=== PATIENT | female | born 1955 | race Caucasian/White ===

== ENCOUNTER 2019-12-26 14:13 | Outpatient (REF) | payer MEDICARE, SELFPAY ==
--- NOTE | 2019-12-26 14:21 | MM_ITS ---
EXAMINATION: BONE DENSITOMETRY CLINICAL INDICATION: Osteopenia lumbar spine. COMPARISON: Previous BD dated 11/04/2017 and baseline BD dated 01/06/2005. TECHNIQUE: Using a [employer] DXA System (software version: 13.1) manufactured by [employer], dual-energy x-ray absorptiometry was performed of the lumbar spine and left hip. The images are of good technical quality. Summary results are attached. FINDINGS: AP SPINE L1-L4: Current: BMD 1.059 g/cm2, Z-score 0.3, T-score -1.0, normal, 3.0% increase from previous, 8.2% decrease from baseline (<5% change is not significant). Prior: BMD 1.028 g/cm2. Baseline: BMD 1.153 g/cm2. LEFT FEMUR, NECK: Current: BMD 0.985 g/cm2, Z-score 0.9, T-score -0.4, normal. Prior: BMD 1.046 g/cm2. Baseline: BMD 1.140 g/cm2. LEFT FEMUR, TOTAL: Current: BMD 0.987 g/cm2, Z-score 0.9, T-score -0.2, normal, 1.0% decrease from previous, 11.2% decrease from baseline (<5% change is not significant). Prior: BMD 0.997 g/cm2. Baseline: BMD 1.111 g/cm2. IDENTIFIED RISK FACTORS: Osteoporosis. Height loss. Low calcium intake. Menopause. HISTORY OF FRACTURE: None listed. MEDICATIONS: Calcium supplement and/or multivitamin. Vitamin D. MM/XR DEXA axial skeleton IMPRESSION: 1. DIAGNOSIS: Normal bone density based on the lowest T-score value of -1.0 in the lumbar spine applying World Health Organization criteria. 2. 10-YEAR FRACTURE RISK PREDICTION, FRAX: Major osteoporotic fracture (clinical spine, forearm, hip or shoulder) 7.3%. Hip fracture 0.4%. 3. Treatment Recommendations: NOF guidelines recommend consideration for treatment in postmenopausal women and men age 50 and older presenting with the following: -A hip or vertebral (clinical or morphometric) fracture. -T-score less than or equal to -2.5 at the femoral neck or spine after appropriate evaluation to exclude secondary causes. -Low bone mass at the hip or spine and a 10-year fracture probability by FRAX of greater than or equal to 3% for hip fracture or greater than or equal to 20% for major osteoporotic fracture based on the [place] adapted WHO algorithm. 4. Other Recommendations: All treatment decisions require clinical judgment and consideration of individual patient factors, including patient preferences, comorbidities, previous drug use, risk factors not captured in the FRAX model (e.g. frailty, falls, vitamin D deficiency, increased bone turnover, interval significant decline in bone density) and possible under or overestimation of fracture risk by FRAX. Additional medical evaluation for secondary cause of low bone mineral density may be appropriate. FUTURE SCAN RECOMMENDATION: People with diagnosed cases of osteoporosis or at high risk for fracture should have regular bone mineral density tests. For patients eligible for Medicare, routine testing is allowed once every 2 years. The testing frequency can be increased to one year for patients who have rapidly progressing disease, those who are receiving or discontinuing medical therapy to restore bone mass, or have additional risk factors.
--- NOTE | 2019-12-26 14:21 | MM_ITS ---
EXAMINATION: MM SCREENING DIGITAL BREAST TOMOSYNTHESIS, BILATERAL CLINICAL INFORMATION: Screening. Asymptomatic. Family history breast cancer in mother and aunt. The lifetime risk of breast cancer based on the Tyrer-Cuzick Model is 13%. COMPARISON: Mammography: 11/30/2018, 11/04/2017 TECHNIQUE: Digital breast tomosynthesis is performed in both the craniocaudal and mediolateral oblique views along with computer-aided detection (CAD). Synthesized 2D images are generated from the tomosynthesis. Additional exaggerated left CC view is provided. FINDINGS: There are scattered areas of fibroglandular density (ACR BI-RADS breast composition Category b). Breast tissue composition borders on predominantly fatty. There is no interval mass or architectural abnormality or abnormal calcifications. No significant changes. Low right axillary tail node again seen. No significant changes from prior exams. MM/MM tomosynthesis screening BI IMPRESSION: No significant changes from prior studies. ASSESSMENT: BI-RADS 2: Benign RECOMMENDATION: Routine annual mammography screening. This patient's information was entered into a reminder system with a target due date for their next mammogram.
== END 2019-12-26 14:14 | disposition home or self-care (01) ==
LOC: HO.MAMMO 14:13
PROVIDERS: PCP Nurse Practitioner Family; Visit Provider Nurse Practitioner Family
DX: Z13.820 Encounter for screening for osteoporosis (principal); M85.88 Other specified disorders of bone density and structure, other site; Z78.0 Asymptomatic menopausal state; Z79.899 Other long term (current) drug therapy; Z12.31 Encounter for screening mammogram for malignant neoplasm of breast; Z80.3 Family history of malignant neoplasm of breast
CPT/HCPCS: 77063; 77067; 77080

== ENCOUNTER 2020-01-26 12:13 | Outpatient (REF) | payer MEDICARE, SELFPAY | END 2020-01-26 12:14 | disposition home or self-care (01) | LOC: HO.LAB 12:13 | PROVIDERS: PCP Nurse Practitioner Family; Visit Provider Internal Medicine | DX: Z20.828 Contact with and (suspected) exposure to other viral communicable diseases (principal) | CPT/HCPCS: C9803; U0003 ==

== ENCOUNTER 2020-01-30 15:40 | Emergency (ER) | payer MEDICARE, SELFPAY ==
[2020-01-30 16:03] VITALS: BP 121/98; PULSE 101; RESP 16; TEMP 37.1; O2SAT 98; BMI 26.6
--- NOTE | 2020-01-30 16:30 | ED.GENADULT ---
HPI - General Adult General Chief complaint: General Medical <Qasim Will NP - Last Filed: 01/30/20 18:14> Stated complaint: FLU LIKE <Qasim Will NP - Last Filed: 01/30/20 18:14> Time Seen by Provider: 01/30/20 15:53 <Qasim Will NP - Last Filed: 01/30/20 18:14> Source: patient <Qasim Will NP - Last Filed: 01/30/20 18:14> Mode of arrival: ambulatory <Qasim Will NP - Last Filed: 01/30/20 18:14> Limitations: no limitations <Qasim Will NP - Last Filed: 01/30/20 18:14> History of Present Illness HPI narrative: 64 yo female with past medical history of asthma here with dry cough, fatigue and intermittent PACHECO x 7 days. Pt tells me she was with a COVID + person 9 days ago. She was tested and informed today she was negative. No shortness of breath, chest pain, abdominal pain, vomiting, diarrhea. The patient does which is mild intermittent headaches which are not severe and resolve on their own. They are not associated with any vomiting, vision changes, photophobia or dizziness. No fevers, or chills. The patient has had to use her albuterol inhaler several times. <Qasim Will NP - Last Filed: 01/30/20 18:14> Onset (ago): day(s) <Qasim Will NP - Last Filed: 01/30/20 18:14> Radiation: non-radiation <Qasim Will NP - Last Filed: 01/30/20 18:14> Associated symptoms: cough, headaches and malaise <Qasim Will NP - Last Filed: 01/30/20 18:14> Treatments prior to arrival: none <Qasim Will NP - Last Filed: 01/30/20 18:14> Related Data Home medications: Home Medications Medication Instructions Recorded Confirmed omeprazole 40 mg capsule,delayed 40 mg PO DAILY 02/05/20 release Previous Rx's Medication Instructions Recorded albuterol sulfate 90 mcg/actuation 1 inh INHALATION QID PRN 30 Days 11/23/19 aerosol inhaler #18 g fluticasone 100 mcg-salmeterol 50 1 inh INHALATION BID 30 Days #60 ea 12/04/19 mcg/dose blistr powdr for inhalation ibuprofen 600 mg tablet 600 mg PO TID #21 tab 02/02/20 phentermine 30 mg capsule 30 mg PO DAILY 30 Days #30 cap 02/07/20 <Qasim Will NP - Last Filed: 01/30/20 18:14> Allergies/adverse reactions: Allergies Allergy/AdvReac Type Severity Reaction Status Date / Time prednisone [PREDNISONE] Allergy Severe FLUSHING/DIFFICULTY Verified 02/02/20 15:09 SWALLOWING, anaphalactic reaction codeine [CODEINE] Allergy Intermediate N/V Verified 02/02/20 15:09 <Qasim Will NP - Last Filed: 01/30/20 18:14> Review of Systems Review of Systems: Yes all other systems are reviewed and are negative <Qasim Will NP - Last Filed: 01/30/20 18:14> Constitutional: Constitutional: Reports no additional constitutional complaints, Denies body ache(s), Denies chills, Reports fatigue, Denies fever(s), Reports headache(s) and Denies weakness <DAR Davila Last Filed: 01/30/20 18:14> Eyes: Eyes: Reports no additional eye complaints and Denies change in vision <DAR Davila Last Filed: 01/30/20 18:14> ENT: Reports system reviewed and no additional complaints, except as documented, Denies dizziness, Reports headache(s), Denies nasal congestion, Denies nasal discharge and Denies neck pain <DAR Davila Last Filed: 01/30/20 18:14> Cardiovascular: Cardiovascular: Reports no additional cardiovascular complaints, Denies chest pain, Denies leg edema and Denies dyspnea <DAR Davila Last Filed: 01/30/20 18:14> Respiratory: Respiratory: Reports no additional respiratory complaints, Reports cough and Denies dyspnea <Qasim Will NP - Last Filed: 01/30/20 18:14> Gastrointestinal: Gastrointestinal: Reports no additional gastrointestinal complaints, Denies abdominal pain, Denies diarrhea, Denies nausea and Denies vomiting <Qasim Will NP - Last Filed: 01/30/20 18:14> Genitourinary: Genitourinary: Reports no additional female genitourinary complaints and Denies urinary incontinence <Qasim Will NP - Last Filed: 01/30/20 18:14> Musculoskeletal: Musculoskeletal: Reports no additional musculoskeletal complaints, Denies back pain, Denies arthralgias, Denies joint swelling, Denies neck pain, Denies numbness and Denies tingling <Qasim Will NP - Last Filed: 01/30/20 18:14> Integumentary/Breasts: Skin/Breast: Reports system reviewed and no additional complaints, except as docu and Denies rash <Qasim Will NP - Last Filed: 01/30/20 18:14> Neurologic: Reports system reviewed and no additional complaints, except as documented, Denies Abnormal speech present, Denies dizziness, Reports headache(s), Denies numbness, Denies tingling and Denies weakness <Qasim Will NP - Last Filed: 01/30/20 18:14> Endocrine: Endocrine: Reports fatigue <Qasim Will NP - Last Filed: 01/30/20 18:14> PMFSH Past Medical History Attestation statement: The following information was validated with the patient. <Qasim Will NP - Last Filed: 01/30/20 18:14> Source: old records reviewed and nursing notes reviewed <Qasim Will NP - Last Filed: 01/30/20 18:14> Medical History: Medical History Asthma <Qasim Will NP - Last Filed: 01/30/20 18:14> Physical Exam Vital Signs: Vital Signs: Last Vital Signs Temp 98.7 F 01/30/20 16:03 Pulse 101 H 01/30/20 16:03 Resp 16 01/30/20 16:03 BP 121/98 H 01/30/20 16:03 Pulse Ox 98 01/30/20 16:03 Body Mass Index 26.6 <Qasim Will NP - Last Filed: 01/30/20 18:14> Vital Signs: Last Vital Signs Temp 98.7 F 01/30/20 16:03 Pulse 101 H 01/30/20 16:03 Resp 16 01/30/20 16:03 BP 121/98 H 01/30/20 16:03 Pulse Ox 98 01/30/20 16:03 Body Mass Index 26.6 <Nuno Guerrero MD - Last Filed: 02/11/20 09:40> Const: General: cooperative, healthy appearing, comfortable and no acute distress <Qasim Will NP - Last Filed: 01/30/20 18:14> Orientation/consciousness: patient oriented x3 <Qasim Will NP - Last Filed: 01/30/20 18:14> Limitations: no limitations <Qasim Will NP - Last Filed: 01/30/20 18:14> HENMT: Head: Yes normal to inspection <Qasim Will NP - Last Filed: 01/30/20 18:14> Ears: hearing grossly normal bilaterally <Qasim Will NP - Last Filed: 01/30/20 18:14> General nose exam: Normal external nose present <Qasim Will NP - Last Filed: 01/30/20 18:14> Face and sinus: Yes normal facial exam <Qasim Will NP - Last Filed: 01/30/20 18:14> Mouth: Normal oral and palatal mucosa present <Qasim Will NP - Last Filed: 01/30/20 18:14> Throat: Yes posterior oropharynx normal <Qasim Will NP - Last Filed: 01/30/20 18:14> Eyes: General: appearance normal, both eyes and all related structures <Qasim Will NP - Last Filed: 01/30/20 18:14> Pupils: Equal, round and reactive pupils present <Qasim Will NP - Last Filed: 01/30/20 18:14> Neck: Neck: Yes normal visual inspection <Qasim Will NP - Last Filed: 01/30/20 18:14> Chest: Chest palpation & inspection: normal inspection of the chest <Qasim Will NP - Last Filed: 01/30/20 18:14> Resp: Effort & Inspection: normal respiratory effort <Qaism Will NP - Last Filed: 01/30/20 18:14> Auscultation: clear to auscultation bilaterally <Qasim Will EMERGENCY ROOM PHYSICIAN ASSISTANT - Last Filed: 01/30/20 18:14> Cardio: Rate: regular rate <Qasim Will EMERGENCY ROOM PHYSICIAN ASSISTANT - Last Filed: 01/30/20 18:14> Rhythm: regular rhythm <Qasim Will NP - Last Filed: 01/30/20 18:14> Peripheral pulses: Peripheral pulses 2+ throughout <Qasim Wlil EMERGENCY ROOM PHYSICIAN ASSISTANT - Last Filed: 01/30/20 18:14> GI: Inspection: Yes normal to inspection <Qasim Will EMERGENCY ROOM PHYSICIAN ASSISTANT - Last Filed: 01/30/20 18:14> Palpation (GI): Soft to palpation and nontender <Qasim Will EMERGENCY ROOM PHYSICIAN ASSISTANT - Last Filed: 01/30/20 18:14> Auscultation: normal bowel sounds <Qasim Will EMERGENCY ROOM PHYSICIAN ASSISTANT - Last Filed: 01/30/20 18:14> Back/Spine/Pelvis: Thoracic/Lumbar Spine: thoracic and lumbar spine normal to inspection <Qasim Will NP - Last Filed: 01/30/20 18:14> Skin: General skin exam: no rashes or lesions noted <Qasim Will NP - Last Filed: 01/30/20 18:14> Neuro: General: patient oriented x3, no focal motor deficits and normal sensation to monofilament <Qasim Will NP - Last Filed: 01/30/20 18:14> Cranial nerves: Yes CN's II-XII intact bilaterally, Yes Equal, round and reactive pupils present, Yes Bilaterally intact EOM present, Yes Nystagmus not present, Yes Normal facial strength present and Yes Midline tongue present <Qasim Will NP - Last Filed: 01/30/20 18:14> Cognition (Neuro): normal cognition <Qasim Will NP - Last Filed: 01/30/20 18:14> Speech: No Abnormal speech present <Qasim Will NP - Last Filed: 01/30/20 18:14> Gait exam (Neuro): Normal gait present <Qasim Will NP - Last Filed: 01/30/20 18:14> Motor exam (neuro): 5/5 motor strength present throughout <Qasim Will NP - Last Filed: 01/30/20 18:14> Extrem: General: Yes normal to inspection <Qasim Will NP - Last Filed: 01/30/20 18:14> Course Course Course Narrative: 64-year-old female here with fatigue, intermittent headaches, cough x 7 days, recent negative COVID test, persistent symptoms. Stable vital signs. Benign exam. Will check labs, chest x-ray, flu and COVID swab. 1814-labs, chest x-ray and COVID and flu testing all unremarkable. Discussed findings with the patient. Maybe viral syndrome. I did discuss with her that she should follow-up with her primary care doctor outpatient for additional evaluation and further diagnostic testing as indicated. Reviewed worrisome signs and symptoms and when to return to the emergency department. Comfortable with discharge home. <Qasim Will NP - Last Filed: 01/30/20 18:14> I have reviewed the chart <Nuno Guerrero MD - Last Filed: 02/11/20 09:40> Medical Decision Making MDM Narrative Medical decision making narrative: Pneumonia, viral syndrome, COVID-19 infection, electrolyte abnormality, anemia <Qasim Will NP - Last Filed: 01/30/20 18:14> Medical Records Medical records reviewed: Yes I reviewed the patient's medical records. <Qasim Will NP - Last Filed: 01/30/20 18:14> Lab Data Lab results reviewed: Yes I reviewed the patient's lab results. <Qasim Will NP - Last Filed: 01/30/20 18:14> Result diagrams: : 01/30/20 16:41 01/30/20 16:41 <Qasim Will, EMERGENCY ROOM PHYSICIAN ASSISTANT - Last Filed: 01/30/20 18:14> Labs: Lab Results 01/30/20 01/30/20 01/30/20 Range/Units 16:41 16:41 16:41 WBC 5.7 (4.8-10.8) X10*3/uL RBC 4.40 (4.20-5.50) X10*6/uL Hgb 13.8 (12.0-16.0) g/dl Hct 39.9 (37-47) % MCV 90.7 (80-98) fL MCH 31.4 (27.0-33.0) pg MCHC 34.6 (31.0-35.0) g/dl RDW 11.9 (11.0-16.0) % Plt Count 235 (160-400) X10*3/uL MPV 10.8 (9.4-12.3) fL Immature Gran % (Auto) 0.2 (0.0-0.4) % Neut % (Auto) 60.6 (45-73) % Lymph % (Auto) 30.9 (20-40) % [place] % (Auto) 5.8 (2-11) % Eos % (Auto) 2.1 (0-4) % Baso % (Auto) 0.4 (0-2) % Lymph # (Auto) 1.8 (1.2-4.9) X10*3/uL [place] # (Auto) 0.3 (0.1-1.2) X10*3/uL Eos # (Auto) 0.1 (0.0-0.4) X10*3/uL Baso # (Auto) 0.0 (0.0-0.2) X10*3/uL Abs Immat Gran (auto) 0.01 (0.00-0.03) X10*3/uL Absolute Neuts (auto) 3.4 (2.0-8.3) X10*3/uL Absolute Nucleated RBC 0.000 (0.0-0.012) X10*3/uL Nucleated RBC % (auto) 0.0 (0.0-0.2) /100WBC Sodium 139 (135-145) mmol/L Potassium 4.2 (3.3-5.1) mmol/l Chloride 105 (96-108) mmol/L Carbon Dioxide 26 (22-29) mmol/L Anion Gap 12 (12-20) BUN 13 (9-16) mg/dL Creatinine 1.00 (0.5-1.4) mg/dL Estim Creat Clear Calc 55.2 Estimated GFR 55 Random Glucose 106 (60-115) mg/dL Calcium 8.8 (8.4-10.2) mg/dL Magnesium 1.8 (1.6-2.6) mg/dL Total Bilirubin 0.5 (0.0-1.0) mg/dL Direct Bilirubin 0.2 (0.0-0.5) mg/dL AST 13 (5-31) U/L ALT 11 (0-31) U/L Alkaline Phosphatase 76 (39-117) U/L Total Protein 7.2 (6.5-8.0) g/dL Albumin 4.6 (3.5-5.0) g/dL Coronavirus (PCR) NEGATIVE (Negative) Influenza Type A (PCR) NEGATIVE (Negative) Influenza Type B (PCR) NEGATIVE (Negative) RSV RNA Qual (PCR) NEGATIVE (Negative) <Qasim Will, EMERGENCY ROOM PHYSICIAN ASSISTANT - Last Filed: 01/30/20 18:14> Lab Results 01/30/20 01/30/20 01/30/20 Range/Units 16:41 16:41 16:41 WBC 5.7 (4.8-10.8) X10*3/uL RBC 4.40 (4.20-5.50) X10*6/uL Hgb 13.8 (12.0-16.0) g/dl Hct 39.9 (37-47) % MCV 90.7 (80-98) fL MCH 31.4 (27.0-33.0) pg MCHC 34.6 (31.0-35.0) g/dl RDW 11.9 (11.0-16.0) % Plt Count 235 (160-400) X10*3/uL MPV 10.8 (9.4-12.3) fL Immature Gran % (Auto) 0.2 (0.0-0.4) % Neut % (Auto) 60.6 (45-73) % Lymph % (Auto) 30.9 (20-40) % [place] % (Auto) 5.8 (2-11) % Eos % (Auto) 2.1 (0-4) % Baso % (Auto) 0.4 (0-2) % Lymph # (Auto) 1.8 (1.2-4.9) X10*3/uL [place] # (Auto) 0.3 (0.1-1.2) X10*3/uL Eos # (Auto) 0.1 (0.0-0.4) X10*3/uL Baso # (Auto) 0.0 (0.0-0.2) X10*3/uL Abs Immat Gran (auto) 0.01 (0.00-0.03) X10*3/uL Absolute Neuts (auto) 3.4 (2.0-8.3) X10*3/uL Absolute Nucleated RBC 0.000 (0.0-0.012) X10*3/uL Nucleated RBC % (auto) 0.0 (0.0-0.2) /100WBC Sodium 139 (135-145) mmol/L Potassium 4.2 (3.3-5.1) mmol/l Chloride 105 (96-108) mmol/L Carbon Dioxide 26 (22-29) mmol/L Anion Gap 12 (12-20) BUN 13 (9-16) mg/dL Creatinine 1.00 (0.5-1.4) mg/dL Estim Creat Clear Calc 55.2 Estimated GFR 55 Random Glucose 106 (60-115) mg/dL Calcium 8.8 (8.4-10.2) mg/dL Magnesium 1.8 (1.6-2.6) mg/dL Total Bilirubin 0.5 (0.0-1.0) mg/dL Direct Bilirubin 0.2 (0.0-0.5) mg/dL AST 13 (5-31) U/L ALT 11 (0-31) U/L Alkaline Phosphatase 76 (39-117) U/L Total Protein 7.2 (6.5-8.0) g/dL Albumin 4.6 (3.5-5.0) g/dL Coronavirus (PCR) NEGATIVE (Negative) Influenza Type A (PCR) NEGATIVE (Negative) Influenza Type B (PCR) NEGATIVE (Negative) RSV RNA Qual (PCR) NEGATIVE (Negative) <Nuno Guerrero MD - Last Filed: 02/11/20 09:40> Imaging Data Chest x-ray: Attestation: I personally reviewed and interpreted this imaging study as follows: <Qasim Will NP - Last Filed: 01/30/20 18:14> Radiologist's impression: [address] [address] XRay Report Signed Patient: Juliana Curtis AMR#: [id number] : 4Acct:[id number] Age/Sex: 64 / FADM Date: 01/30/20 Loc: HO.ED Attending Dr: Ordering Physician: QASIM WILL NP Date of Service: 01/30/20 Procedure(s): XR chest 1V Accession Number(s): [id number] cc: QASIM WILL NP~ EXAMINATION: XR CHEST CLINICAL INFORMATION: Weakness COMPARISON: 04/15/2010 TECHNIQUE: Frontal view of the chest was obtained. FINDINGS: Calcified aortic arch. Lungs are clear. No focal consolidation or mass. No pleural effusion or pneumothorax. Normal heart size. XR/XR chest 1V IMPRESSION: No acute pulmonary disease. No significant change from prior study. <Qasim Will NP - Last Filed: 01/30/20 18:14> Discharge Plan Discharge Clinical Impression: Acute viral syndrome <Qasim Will NP - Last Filed: 01/30/20 18:14> Patient Disposition: Home, Self-Care <Qasim Will NP - Last Filed: 01/30/20 18:14> Instructions: Viral Syndrome (ED) <Qasim Will NP - Last Filed: 01/30/20 18:14> Additional Instructions: Your blood work, chest x-ray, COVID and flu testing were all unremarkable. This may be a virus however at this point I would recommend following up with your PCP for additional evaluation and diagnostic testing. Please return to the ED for any worsening symptoms <Qasim Will NP - Last Filed: 01/30/20 18:14> Prescriptions: No Action albuterol sulfate [ProAir HFA] 90 mcg/actuation HFA aerosol inhaler 1 inh inhalation QID PRN (Reason: shortness of breath or wheezing) 30 Days Qty: 18 RF: 4 fluticasone propion-salmeterol 100-50 mcg/dose blister with device 1 inh inhalation BID 30 Days Qty: 60 RF: 3 phentermine 30 mg capsule 30 mg PO DAILY 30 Days Qty: 30 RF: 1 ibuprofen 600 mg tablet 600 mg PO TID Qty: 21 RF: 0 <Qasim Will NP - Last Filed: 01/30/20 18:14> Referrals: Gwyn Camarena, [facility]- [Primary Care Provider] - 2 days <Qasim Will NP - Last Filed: 01/30/20 18:14> Interventions: ED Discharge Assessment Last Done: 01/30/20 18:34 <Qasim Will NP - Last Filed: 01/30/20 18:14> Discharge Date/Time: 01/30/20 18:34 <Qasim Will NP - Last Filed: 01/30/20 18:14>
[2020-01-30 16:49] LABS: MANUAL DIFF FLAG NO
[2020-01-30 16:52] LABS: Basophils Percent Auto 0.4 % (0-2); Eosinophils Absolute Auto 0.1 X10*3/uL (0.0-0.4); Eosinophils Percent Auto 2.1 % (0-4); Hematocrit 39.9 % (37-47); Hemoglobin 13.8 g/dl (12.0-16.0); Imm Gran Abs Auto 0.01 X10*3/uL (0.00-0.03); Imm Gran Pct Auto 0.2 % (0.0-0.4); Lymphocytes Absolute Auto 1.8 X10*3/uL (1.2-4.9); Lymphocytes Percent Auto 30.9 % (20-40); Mean Corpuscular HGB Conc 34.6 g/dl (31.0-35.0); Mean Corpuscular Hemoglobin 31.4 pg (27.0-33.0); Mean Corpuscular Volume 90.7 fL (80-98); Mean Platelet Volume 10.8 fL (9.4-12.3); Monocytes Absolute Auto 0.3 X10*3/uL (0.1-1.2); Monocytes Percent Auto 5.8 % (2-11); Neutrophils Absolute Auto 3.4 X10*3/uL (2.0-8.3); Neutrophils Percent Auto 60.6 % (45-73); Platelet Count 235 X10*3/uL (160-400); Red Cell Distribution Width 11.9 % (11.0-16.0); White Blood Count 5.7 X10*3/uL (4.8-10.8)
[2020-01-30 17:13] LABS: Alanine Aminotransferase 11 U/L (0-31); Albumin Level 4.6 g/dL (3.5-5.0); Alkaline Phosphatase 76 U/L (39-117); Anion Gap 12 (12-20); Aspartate Amino Transferase 13 U/L (5-31); Bilirubin Direct 0.2 mg/dL (0.0-0.5); Bilirubin Total 0.5 mg/dL (0.0-1.0); Blood Urea Nitrogen 13 mg/dL (9-16); Calcium 8.8 mg/dL (8.4-10.2); Carbon Dioxide 26 mmol/L (22-29); Chloride 105 mmol/L (96-108); Creatinine Clr Calc Pharmacy 55.2; Estimated Glomerular Filt Rate 55; Glucose Random 106 mg/dL (60-115); Magnesium 1.8 mg/dL (1.6-2.6); Potassium 4.2 mmol/l (3.3-5.1); Sodium 139 mmol/L (135-145); Total Protein 7.2 g/dL (6.5-8.0)
[2020-01-30 17:31] LABS: Influenza A PCR NEGATIVE (Negative); Influenza B PCR NEGATIVE (Negative); Resp Syncy Virus RNA Qual PCR NEGATIVE (Negative); SARS COV2 PCR INHOUSE NEGATIVE (Negative)
== END 2020-01-30 18:34 | disposition home or self-care (01) ==
PROVIDERS: Nurse Practitioner Family; Emergency Provider Emergency Medicine; PCP Nurse Practitioner Family
DX: B34.9 Viral infection, unspecified (principal); R05 Cough; R51.9 Headache, unspecified; Z20.828 Contact with and (suspected) exposure to other viral communicable diseases; Z79.899 Other long term (current) drug therapy
CPT/HCPCS: 0241U; 36415; 71045; 80048; 80076; 83735; 85025; 99283; 99284

== ENCOUNTER 2020-06-27 13:43 | Outpatient (REF) | payer MEDICARE, SELFPAY ==
[2020-06-27 16:33] LABS: INTERNATIONAL NORM RATIO 2.5 (0.9-1.1); Prothrombin Time 30.5 SEC (10.8-13.0)
== END 2020-06-27 13:44 | disposition home or self-care (01) ==
LOC: HO.HMGCLDS 13:43
PROVIDERS: PCP Nurse Practitioner Family; Visit Provider Orthopaedic Surgery
DX: Z51.81 Encounter for therapeutic drug level monitoring (principal); Z79.01 Long term (current) use of anticoagulants
CPT/HCPCS: 36415; 85610

== ENCOUNTER 2020-07-10 13:50 | Outpatient (REF) | payer MEDICARE, SELFPAY | END 2020-07-10 13:51 | disposition home or self-care (01) | LOC: HO.LNP 13:50 | PROVIDERS: Visit Provider Internal Medicine | DX: N30.90 Cystitis, unspecified without hematuria (principal) | CPT/HCPCS: 87086 ==

== ENCOUNTER 2020-09-05 09:00 | Outpatient (RCR) | payer MEDICARE, SELFPAY | END 2021-06-19 11:54 | disposition home or self-care (01) | LOC: HO.PTCHIC 09:00 | PROVIDERS: PCP Nurse Practitioner Family; Visit Provider Orthopaedic Surgery | DX: Z96.652 Presence of left artificial knee joint (principal); Z98.890 Other specified postprocedural states | CPT/HCPCS: 97110; 97140; 97161; 97530 ==

== ENCOUNTER 2020-11-15 07:00 | Outpatient (REF) | payer MEDICARE, SELFPAY ==
[2020-11-15 12:09] LABS: Appearance Urine CLEAR; Color Urine YELLOW; Glucose Urine UA NEG (NEG); Leukocyte Esterase Urine 1+ (NEG); Nitrite Urine NEG (NEG); PH 6.5 (5.0-8.0); UACC Culture Trigger YES; Urine Blood NEG (NEG); Urine Ketones NEG (NEG); Urine Protein NEG (NEG-TRACE)
[2020-11-15 12:23] LABS: Bacteria Urine TRACE /LPF; RBC Urine 0 /HPF (0); Squamous Epithelial Cell Urine 2+ /LPF
[2020-11-15 13:12] LABS: Alanine Aminotransferase 13 U/L (0-31); Albumin Level 4.1 g/dL (3.5-5.0); Alkaline Phosphatase 79 U/L (39-117); Anion Gap 10 (12-20); Aspartate Amino Transferase 15 U/L (5-31); Bilirubin Total 0.6 mg/dL (0.0-1.0); Blood Urea Nitrogen 16 mg/dL (9-16); Calcium 9.2 mg/dL (8.4-10.2); Carbon Dioxide 27 mmol/L (22-29); Chloride 107 mmol/L (96-108); Cholesterol 198 mg/dL; Estimated Glomerular Filt Rate > 60; Glucose Fasting 96 mg/dL (60-99); HDL Cholesterol 67 mg/dL; LDL Cholesterol Calculated 121 mg/dl; Potassium 4.3 mmol/L (3.3-5.1); Sodium 140 mmol/L (135-145); TSH reflex Free T4 2.53 uIU/mL (0.32-4.0); Total Protein 6.5 g/dL (6.5-8.0); Triglycerides 52 mg/dL
== END 2020-11-15 07:01 | disposition home or self-care (01) ==
LOC: HO.HMGCLDS 07:00
PROVIDERS: PCP Nurse Practitioner Family; Visit Provider Nurse Practitioner Family
DX: Z00.00 Encounter for general adult medical examination without abnormal findings (principal)
CPT/HCPCS: 36415; 80053; 80061; 81001; 84443; 87086

== ENCOUNTER 2020-11-19 09:44 | Outpatient (REF) | payer MEDICARE, SELFPAY ==
--- NOTE | ~2020-11-19 | XR_ITS ---
EXAMINATION: XR FOOT, RIGHT XR FOOT, LEFT CLINICAL INFORMATION: Pain in bilateral feet. COMPARISON: None TECHNIQUE: Three views of each foot. FINDINGS: RIGHT FOOT: There is no visible acute fracture, dislocation or subluxation. The ankle mortise and subtalar joints are normal. The visualized tarsometatarsal and metatarsophalangeal joints are normal. The soft tissues are normal. LEFT FOOT: There is no visible acute fracture, dislocation or subluxation seen. The soft tissues are normal. The ankle mortise and subtalar joints are normal. XR/XR foot RT min 3V IMPRESSION: Unremarkable bilateral foot exam.
--- NOTE | ~2020-11-19 | XR_ITS ---
EXAMINATION: XR FOOT, RIGHT XR FOOT, LEFT CLINICAL INFORMATION: Pain in bilateral feet. COMPARISON: None TECHNIQUE: Three views of each foot. FINDINGS: RIGHT FOOT: There is no visible acute fracture, dislocation or subluxation. The ankle mortise and subtalar joints are normal. The visualized tarsometatarsal and metatarsophalangeal joints are normal. The soft tissues are normal. LEFT FOOT: There is no visible acute fracture, dislocation or subluxation seen. The soft tissues are normal. The ankle mortise and subtalar joints are normal. XR/XR foot LT min 3V IMPRESSION: Unremarkable bilateral foot exam.
== END 2020-11-19 09:45 | disposition home or self-care (01) ==
LOC: HO.HMGCX 09:44
PROVIDERS: PCP Nurse Practitioner Family; Visit Provider Nurse Practitioner Family
DX: M79.671 Pain in right foot (principal); M79.672 Pain in left foot
CPT/HCPCS: 73630

== ENCOUNTER 2021-01-01 13:03 | Outpatient (REF) | payer MEDICARE, SELFPAY ==
--- NOTE | ~2021-01-01 | MM_ITS ---
EXAMINATION: MM SCREENING DIGITAL BREAST TOMOSYNTHESIS, BILATERAL CLINICAL INFORMATION: Screening. Asymptomatic. The lifetime risk of breast cancer based on the Tyrer-Cuzick Model is 7%. COMPARISON: Mammography: 12/26/2019, 11/30/2018, 11/04/2017 TECHNIQUE: Digital breast tomosynthesis is performed in both the craniocaudal and mediolateral oblique views along with computer-aided detection (CAD). Synthesized 2D images are generated from the tomosynthesis. FINDINGS: There are scattered areas of fibroglandular density (ACR BI-RADS breast composition Category b). Breast tissue composition borders on predominantly fatty. Background stromal and fibroglandular densities are stable. There is no interval mass or architectural abnormality or abnormal calcifications. The axilla and skin contours are unremarkable. No significant changes. MM/MM tomosynthesis screening BI IMPRESSION: No mammographic evidence of malignancy. ASSESSMENT: BI-RADS 1: Negative RECOMMENDATION: Routine annual mammography screening. This patient's information was entered into a reminder system with a target due date for their next mammogram.
== END 2021-01-01 13:04 | disposition home or self-care (01) ==
LOC: HO.MAMMO 13:03
PROVIDERS: Visit Provider Nurse Practitioner Family
DX: Z12.31 Encounter for screening mammogram for malignant neoplasm of breast (principal)
CPT/HCPCS: 77063; 77067

== ENCOUNTER 2021-01-20 09:02 | Outpatient (REF) | payer MEDICARE, SELFPAY ==
--- NOTE | ~2021-01-20 | XR_ITS ---
EXAMINATION: XR LUMBOSACRAL SPINE CLINICAL INFORMATION: Back pain COMPARISON: Chest radiograph 01/30/2020, CT chest 06/21/2014. TECHNIQUE: Three views of the lumbosacral spine. FINDINGS: There is normal lumbar segmentation with 5 nonrib-bearing lumbar vertebrae with normal lumbar lordosis. There is no destructive process or spondylolisthesis. There is accentuated superior endplate concavity with mild depression at L1 representing new finding from remote CT chest 2014. There is no lumbar disc narrowing or endplate sclerosis or erosive change. The SI joints and visualized sacrum are unremarkable. There is coarse inhomogeneous calcification overlying central pelvis just right of midline measuring 2.7 x 3.2 cm likely related to calcified fibroid. There are scattered calcified phleboliths in the left and right pelvis. No visible renal calculi. XR/XR lumbar spine 2-3V IMPRESSION: 1. Mild superior plate compression L1, new from remote CT 06/21/2014. 2. Probable calcified uterine fibroid 2.7 x 3.3 cm.
== END 2021-01-20 09:03 | disposition home or self-care (01) ==
LOC: HO.HMGCX 09:02
PROVIDERS: PCP Nurse Practitioner Family; Visit Provider Physician Assistant Medical
DX: M54.9 Dorsalgia, unspecified (principal)
CPT/HCPCS: 72100

== ENCOUNTER 2021-02-12 09:06 | Outpatient (REF) | payer MEDICARE, SELFPAY | END 2021-02-12 09:07 | disposition home or self-care (01) | LOC: HO.HMGCLDS 09:06 | PROVIDERS: Visit Provider Internal Medicine | DX: Z20.822 Contact with and (suspected) exposure to COVID-19 (principal) | CPT/HCPCS: C9803; U0003; U0005 ==

== ENCOUNTER 2021-07-29 15:00 | Outpatient (RCR) | payer MEDICARE, SELFPAY | END 2021-11-14 14:17 | disposition home or self-care (01) | LOC: HO.PTCHIC 15:00 | PROVIDERS: PCP Nurse Practitioner Family; Visit Provider Orthopaedic Surgery | DX: S32.000D Wedge compression fracture of unspecified lumbar vertebra, subsequent encounter for fracture with routine healing (principal); Z91.81 History of falling | CPT/HCPCS: 97014; 97110; 97140; 97162 ==

== ENCOUNTER 2021-07-31 11:33 | Outpatient (REF) | payer MEDICARE, SELFPAY ==
[2021-07-31 14:00] LABS: Appearance Urine HAZY; Color Urine YELLOW; Glucose Urine UA NEG (NEG); Leukocyte Esterase Urine 2+ (NEG); Nitrite Urine NEG (NEG); PH 6.5 (5.0-8.0); UACC Culture Trigger YES; Urine Blood TRACE (NEG); Urine Ketones NEG (NEG); Urine Protein NEG (NEG-TRACE)
== END 2021-07-31 11:34 | disposition home or self-care (01) ==
LOC: HO.HMGCLDS 11:33
PROVIDERS: Visit Provider Nurse Practitioner Family
DX: N30.90 Cystitis, unspecified without hematuria (principal)
CPT/HCPCS: 81001; 81003; 87086; 87088; 87186

== ENCOUNTER 2022-01-22 08:53 | Outpatient (REF) | payer MEDICARE, SELFPAY ==
--- NOTE | ~2022-01-22 | MM_ITS ---
EXAMINATION: BONE DENSITOMETRY CLINICAL INDICATION: Asymptomatic menopausal state. COMPARISON: Previous BD dated 12/26/2019 and baseline BD dated 01/06/2005. Radiographs lumbar spine 01/20/2021. TECHNIQUE: Using a [employer] DXA System (software version: 13.1) manufactured by [employer], dual-energy x-ray absorptiometry was performed of the lumbar spine and left hip. The images are of good technical quality. Summary results are attached. FINDINGS: AP SPINE L1-L4: Current: BMD 1.027 g/cm2, Z-score 0.1, T-score -1.3, osteopenia, 3.0% decrease from previous, 10.9% decrease from baseline (<5% change is not significant). Prior: BMD 1.059 g/cm2. Baseline: BMD 1.153 g/cm2. LEFT FEMUR, NECK: Current: BMD 0.896 g/cm2, Z-score 0.5, T-score -1.0, normal. Prior: BMD 0.985 g/cm2. Baseline: BMD 1.140 g/cm2. LEFT FEMUR, TOTAL: Current: BMD 0.892 g/cm2, Z-score 0.3, T-score -0.9, normal, 9.6% decrease from previous, 19.7% decrease from baseline (<5% change is not significant). Prior: BMD 0.987 g/cm2. Baseline: BMD 1.111 g/cm2. IDENTIFIED RISK FACTORS: Height loss, history of fracture (adult), low calcium intake, osteoporosis, menopause. HISTORY OF FRACTURE: Mild compression superior endplate L1. MEDICATIONS: Calcium. MM/XR DEXA axial skeleton IMPRESSION: 1. DIAGNOSIS: Osteopenia based on the lowest T-score value of -1.3 in the lumbar spine applying World Health Organization criteria. 2. 10-YEAR FRACTURE RISK PREDICTION, FRAX: Major osteoporotic fracture (clinical spine, forearm, hip or shoulder) 14.1%. Hip fracture 1.3%. 3. Treatment Recommendations: NOF guidelines recommend consideration for treatment in postmenopausal women and men age 50 and older presenting with the following: -A hip or vertebral (clinical or morphometric) fracture. -T-score less than or equal to -2.5 at the femoral neck or spine after appropriate evaluation to exclude secondary causes. -Low bone mass at the hip or spine and a 10-year fracture probability by FRAX of greater than or equal to 3% for hip fracture or greater than or equal to 20% for major osteoporotic fracture based on the [place] adapted WHO algorithm. 4. Other Recommendations: All treatment decisions require clinical judgment and consideration of individual patient factors, including patient preferences, comorbidities, previous drug use, risk factors not captured in the FRAX model (e.g. frailty, falls, vitamin D deficiency, increased bone turnover, interval significant decline in bone density) and possible under or overestimation of fracture risk by FRAX. Additional medical evaluation for secondary cause of low bone mineral density may be appropriate. FUTURE SCAN RECOMMENDATION: People with diagnosed cases of osteoporosis or at high risk for fracture should have regular bone mineral density tests. For patients eligible for Medicare, routine testing is allowed once every 2 years. The testing frequency can be increased to one year for patients who have rapidly progressing disease, those who are receiving or discontinuing medical therapy to restore bone mass, or have additional risk factors.
--- NOTE | ~2022-01-22 | MM_ITS ---
EXAMINATION: MM SCREENING DIGITAL BREAST TOMOSYNTHESIS, BILATERAL CLINICAL INFORMATION: Screening. Asymptomatic. The lifetime risk of breast cancer based on the Tyrer-Cuzick Model is 6.6%. COMPARISON: Mammography: January 01, 2021 and studies dating back to December 12, 2014 TECHNIQUE: Digital breast tomosynthesis is performed in both the craniocaudal and mediolateral oblique views along with computer-aided detection (CAD). Synthesized 2D images are generated from the tomosynthesis. FINDINGS: There are scattered areas of fibroglandular density (ACR BI-RADS breast composition Category b). There are no significant masses, abnormal calcifications, or other abnormalities. MM/MM tomosynthesis screening BI IMPRESSION: No significant changes from prior exam. ASSESSMENT: BI-RADS 1: Negative RECOMMENDATION: Routine annual mammography screening. This patient's information was entered into a reminder system with a target due date for their next mammogram.
== END 2022-01-22 08:54 | disposition home or self-care (01) ==
LOC: HO.MAMMO 08:53
PROVIDERS: PCP Nurse Practitioner Family; Visit Provider Nurse Practitioner Family
DX: Z12.31 Encounter for screening mammogram for malignant neoplasm of breast (principal); Z13.820 Encounter for screening for osteoporosis; Z78.0 Asymptomatic menopausal state
CPT/HCPCS: 77063; 77067; 77080

== ENCOUNTER 2022-03-05 11:59 | Outpatient (REF) | payer MEDICARE, SELFPAY ==
[2022-03-05 12:57] LABS: Influenza A PCR NEGATIVE (Negative); Influenza B PCR NEGATIVE (Negative); Resp Syncy Virus RNA Qual PCR NEGATIVE (Negative); SARS COV2 PCR INHOUSE NEGATIVE (Negative)
== END 2022-03-05 12:00 | disposition home or self-care (01) ==
LOC: HO.LNP 11:59
PROVIDERS: Visit Provider Internal Medicine
DX: R09.89 Other specified symptoms and signs involving the circulatory and respiratory systems (principal); Z20.822 Contact with and (suspected) exposure to COVID-19
CPT/HCPCS: 0241U

== ENCOUNTER 2022-05-19 07:57 | Outpatient (REF) | payer MEDICARE, SELFPAY ==
[2022-05-19 11:30] LABS: MANUAL DIFF FLAG NO
[2022-05-19 11:51] LABS: Appearance Urine Cloudy; Color Urine Yellow; Glucose Urine UA Negative (Negative); Leukocyte Esterase Urine Large (3+) (Negative); Nitrite Urine Negative (Negative); Specific Gravity - Urine 1.025 (1.005-1.025); UMIC TRIGGER UACC YES; Urine Blood Negative (Negative); Urine Ketones Negative (Negative); Urine Protein Negative (Neg-Trace)
[2022-05-19 11:53] LABS: Bacteria Urine None Seen (None Seen); Hyaline Casts Urine 0-2 /LPF (0-2); RBC Urine 0-2 /HPF (0-2); UACC Culture Trigger YES; WBC Urine 21-50 /HPF (0-5)
[2022-05-19 12:00] LABS: Basophils Percent Auto 0.8 % (0-2); Eosinophils Absolute Auto 0.1 X10*3/uL (0.0-0.4); Eosinophils Percent Auto 2.8 % (0-4); Hematocrit 40.8 % (37.0-47.0); Hemoglobin 13.8 g/dl (12.0-16.0); Imm Gran Abs Auto 0.01 X10*3/uL (0.00-0.03); Imm Gran Pct Auto 0.2 % (0.0-0.4); Lymphocytes Percent Auto 39.8 % (20-40); Mean Corpuscular HGB Conc 33.8 g/dl (31.0-35.0); Mean Corpuscular Hemoglobin 31.4 pg (27.0-33.0); Mean Corpuscular Volume 92.7 fL (80.0-98.0); Mean Platelet Volume 12.2 fL (9.4-12.3); Monocytes Absolute Auto 0.3 X10*3/uL (0.1-1.2); Monocytes Percent Auto 6.7 % (2-11); Neutrophils Absolute Auto 2.5 x10*3/uL (2.0-8.3); Neutrophils Percent Auto 49.7 % (45-73); Platelet Count 200 X10*3/uL (160-400); Red Cell Distribution Width 12.6 % (11.0-16.0); Retic HGB Equivalent 36.9 pg (30.0-35.0); Reticulocyte Percent 1.2 % (0.5-1.8); Reticulocytes Absolute 0.053 X10*6/uL (0.026-0.095); White Blood Count 5.1 X10*3/uL (4.8-10.8)
[2022-05-19 12:28] LABS: Alanine Aminotransferase 15 U/L (0-31); Albumin Level 4.2 g/dL (3.5-5.0); Alkaline Phosphatase 72 U/L (39-117); Anion Gap 10 (12-20); Aspartate Amino Transferase 18 U/L (5-31); Bilirubin Total 0.6 mg/dL (0.0-1.0); Blood Urea Nitrogen 18 mg/dL (9-16); Calcium 9.3 mg/dL (8.4-10.2); Carbon Dioxide 28 mmol/L (22-29); Chloride 105 mmol/L (96-108); Cholesterol 216 mg/dL; Estimated Glomerular Filt Rate > 60; Glucose Fasting 98 mg/dL (60-99); HDL Cholesterol 65 mg/dL; Iron 102 mcg/dL (30-160); LDL Cholesterol Calculated 140 mg/dl; Percent Iron Saturation 41 % (15-50); Potassium 4.1 mmol/L (3.3-5.1); Sodium 139 mmol/L (135-145); Total Iron Binding Capacity 249 mcg/dL (228-428); Total Protein 6.5 g/dL (6.5-8.0); Triglycerides 59 mg/dL; Unsaturated Iron Binding 147 ug/dL
[2022-05-19 12:50] LABS: Ferritin 56 ng/mL (10-250); Folate 17.4 ng/mL (> or = 4.0); Vitamin B12 411 pg/mL (200-900)
[2022-05-19 13:14] LABS: TSH reflex Free T4 2.74 uIU/mL (0.32-4.0)
[2022-05-22 03:15] LABS: A. Phagocytphilium DNA,RT-PCR NOT DETECTED (NOT DETECTED); Babesia Microti DNA, RT-PCR NOT DETECTED (NOT DETECTED); Borrelia Miyamotoi,DNA RT-PCR NOT DETECTED (NOT DETECTED); E.Chaffeensis DNA RT-PCR NOT DETECTED (NOT DETECTED); Lyme(Borrelia ssp)DNA RT-PCR NOT DETECTED (NOT DETECTED)
[2022-05-27 11:29] LABS: ANA Pattern 2 Nuclear, Homogeneous; ANA Titer 2 1:40 titer; Anti Nuclear Antibody Screen POSITIVE (NEGATIVE)
== END 2022-05-19 07:58 | disposition home or self-care (01) ==
LOC: HO.HMGCLDS 07:57
PROVIDERS: PCP Nurse Practitioner Family; Visit Provider Nurse Practitioner Family
DX: R53.83 Other fatigue (principal); E78.5 Hyperlipidemia, unspecified; E55.9 Vitamin D deficiency, unspecified
CPT/HCPCS: 36415; 80053; 80061; 81001; 82306; 82607; 82728; 82746; 83540; 84443; 85025; 85045; 86038; 86039; 87086; 87088; 87186; 87798; 87801

== ENCOUNTER 2022-08-31 10:07 | Outpatient (AMB) | payer MEDICARE, SELFPAY ==
[2022-08-31 10:13] VITALS: BP 126/72; PULSE 91; TEMP 36.3; O2SAT 99; BMI 27.0
--- NOTE | 2022-08-31 10:13 | A.OFFVIS_ITS ---
Intake Vital Signs 08/31/22 10:13 Height 5 ft 5 in Weight 162 lb 0.636 oz BMI 27.0 BP 126/72 Blood Pressure Location Rt brachial Position Sitting Pulse 91 Pulse Source Pulse Oximeter Temp 97.3 F Temp Source Skin Pulse Oximetry (%) 99 Intake Visit Reasons: Fatigue/abnormal lab Intake Note: * New pt presents today for abnormal lab consult. * C/o fatigue, pain in multiple areas * States I have pain everywhere. [employer]ician Required: No Accompanied by: Self / Same As Patient Allergies prednisone [PREDNISONE] Allergy (Severe, Verified 08/31/22 10:22) FLUSHING/DIFFICULTY SWALLOWING, anaphalactic reaction codeine [CODEINE] Allergy (Intermediate, Verified 08/31/22 10:22) N/V Medication List - Last Reconciled 08/31/22 by Zaheer oSlis MD albuterol sulfate 90 mcg/actuation (ProAir HFA) 1 inh inhalation QID PRN 30 days biotin 2,500 mcg PO DAILY calcium carbonate-vitamin D3 600 mg-10 mcg (400 unit) (Calcium with Vitamin D) 1 tab PO BID 90 days cyclobenzaprine 10 mg PO BEDTIME gabapentin 300 mg PO BEDTIME lidocaine 4% (AsperFlex (lidocaine)) 1 patch topical DAILY PRN multivitamin (Daily Multi-Vitamin tablet) 1 tab PO DAILY omeprazole 40 mg PO DAILY phentermine 30 mg PO DAILY 30 days HPI HPI Comments History of Present Illness Details The patient presents for evaluation of multiple areas of pain and history of positive TAI. Apparently the TAI has been positive for a number of years. She did see a apprentice jockey a number of years ago but no signs of inflammatory disease were detected. She gets low back pain. This had been going on for number of years after a fall. The fall resulted in L1 compression fracture. That was treated conservatively and she gets low back pain. However in the last 8 or 9 months she has been getting some right leg pain. This is in the lateral hip and radiates to the thigh. It seems to be worse with walking. It has limited her ability to walk around. She also gets pain in the 1st MTP joints, this has been a chronic problem. She has been to Podiatry a few times but has not found any benefit from their treatment. She did injure her neck when she was a 10-year-old and she gets chronic neck pain. This is from osteoarthritis. In the last 6 months she has been having some right medial elbow pain. This was after doing some sanding on her kitchen cabinets. It gets worse when she does more of that activity. She does have a left knee replacement that worked out fairly well. She also had left rotator cuff surgery that did fairly well for her as well. She had a left carpal tunnel release done in the past. [facility] Medical History Asthma COPD (chronic obstructive pulmonary disease) Osteopenia Surgical History H/O colonoscopy History of arthroscopy of both knees History of hysteroscopy S/P shoulder surgery Family History Father No problems noted. Mother Leukemia Breast cancer Social History (Updated 08/31/22 @ 10:26 by PAULA Alcantar) Household Members: Spouse Housing: [facility] Alcohol intake: current Alcohol intake frequency: a few times a week Patient Tobacco Use Status: Former Tobacco user Years Smoked: 40 years e-Cigarette/Vaping Use: Never Used Second Hand Smoke Exposure: No service: No Current occupational status: employed Current occupation: [employer] Current occupational exposures/hazards: No Cognitive needs: No Hearing needs: No Vision needs: No Review of Systems Const Details: Tired and sleepy during the day. She does wake up 3 times at night sometimes to urinate. Negative for appetite change, weight change, fever, chills, malaise the Eyes Details: Occasional headaches. Itchy eyes due to allergy. Negative for vision change, dry eyes and dizziness ENT Details: Some oral dryness at times. Negative for hearing change, tinnitus, oral ulcer, nose bleeds Card Details: Negative chest pain, edema and syncope Resp Details: History of COPD, symptoms of dyspnea somewhat better since stopping smoking. Negative for the cough and wheezing GI Details: Occasional heartburn. Negative nausea, abdominal pain, bowel changes, diarrhea, constipation and bloody stool. Details: Negative for dysuria, hematuria, nocturia, decreased force/flow and genital discharge Skin/Breast Details: Some hair thinning. Negative for itching, rash, hives, Raynaud's symptoms, sun sensitivity, and skin cancer Neuro Details: Negative for epilepsy, palsy, stroke, changes in speech, tingling and weakness Psych Details: Negative for anxiety, depression and stress Endo Details: Negative for polyuria and polydypsia Espinoza/Lymph Details: Negative for excessive bruising or bleeding. Physical Exam Vital Signs: Last Vital Signs Temp 97.3 F 08/31/22 10:13 Pulse 91 08/31/22 10:13 BP 126/72 08/31/22 10:13 Pulse Ox 99 08/31/22 10:13 BMI result Body Mass Index 27.0 APPEARANCE: Patient in no acute distress EYES no redness, pupils equal and reactive to light, eyelids normal EARS: External ear normal, canal clear and tympanic membrane normal. NOSE/SINUS: Airflow through both nares, no nasal discharge, no bleeding THROAT: Oral mucosa moist, no ulcerations NECK: No thyromegaly or masses, no adenopathy, trachea midline. HEART: Regulrar rhythm, S1-S2 heard, no murmurs, rubs or gallops. LUNG: Clear to percussion and auscultation ABD: Normal bowel sounds, no organomegaly, masses or tenderness. EXTREMITIES: No edema, no calf tenderness, normal peripheral pulses. NEURO: Oriented and alert x3. No focal weakness. Reflexes symmetric. Gait normal. SKIN: No inflammatory or neoplastic lesions. Normal color and turgor JOINT EXAM:?? Cervical Spine: There is mild pain with lateral flexion at 10 degrees or rotation at 45 degrees. No tenderness. Thoracic Spine:.? No scoliosis.? No tenderness on palpation. Lumbar Spine:.? Alignment normal.? Mild pain with extremes of motion. No tenderness. Straight leg raising is negative. Chest Wall:.? No tenderness, swelling, increased warmth or erythema. Hands:.? Normal pain-free range of motion without tenderness, swelling, increased warmth or erythema. Able to make a full fist and has a good octave board assembler str ength. Wrists:.? Right: Slight pain with flexion extension at 75 degrees without tenderness or swelling. Left: Normal pain-free range of motion without tenderness, swelling, increased warmth or erythema. Elbows: Right: Normal pain-free range of motion. There is slight medial tenderness without tenderness or swelling over the joint space. Left: Normal pain-free range of motion without tenderness, swelling, increased warmth or erythema. Shoulders:.?? Left: There is an anterior scar from her rotator cuff surgery. Range of motion is intact but I think there is some abductor weakness. No tenderness, adenopathy or swelling. Right: Full range of motion without pain. No tenderness, weakness, swelling, increased warmth or erythema. Hips: Left: There seems to be some decrease in the range of motion. She has about 10 degrees of internal rotation and 15 degrees of external rotation. Abduction is limited to about 30 degrees. This [id number] is less than on the right. Right:? Full range of motion without pain. Hip bursa:.? No tenderness. Knees:.??Left: Range of motion seems intact with a well-healed anterior scar. No areas of swelling, tenderness or redness. Right: Slight patellofemoral crepitus but otherwise normal somel pain-free range of motion without tenderness, swelling, increased warmth or erythema.? There is no effusion. Ankles:.? Normal pain-free range of motion without tenderness, swelling, increased warmth or erythema. Feet:.? There is mild bony enlargement, slight hallux valgus deformity and tenderness at the 1st MTP bilaterally. There is no redness or soft tissue swelling. Otherwise the joints have normal pain-free range of motion without tenderness, swelling, increased warmth or erythema. Tender points:. Slight tenderness to digital palpation at the , trapezius, knees, greater trochanter area bilaterally. ? Results Reviewed Results Reviewed: Laboratory Tests 05/19/22 05/19/22 05/19/22 08:05 08:05 08:05 WBC 5.1 Hgb 13.8 Creatinine 0.83 % Saturation 41 TSH 2.74 TAI Titer 1:80 H Assessment & Plan Assessment & Plan (1) Fatigue: Code(s): R53.83 - Other fatigue (2) Medial epicondylitis, right elbow: Code(s): M77.01 - Medial epicondylitis, right elbow (3) Hip pain, right: Code(s): M25.551 - Pain in right hip (4) Osteoarthritis of lumbar spine: Code(s): M47.816 - Spondylosis without myelopathy or radiculopathy, lumbar region (5) Cervical osteoarthritis: Code(s): M47.812 - Spondylosis without myelopathy or radiculopathy, cervical region (6) Compression fracture of L1 lumbar vertebra: Code(s): S32.010A - Wedge compression fracture of first lumbar vertebra, initial encounter for closed fracture (7) TAI positive: Code(s): R76.8 - Other specified abnormal immunological findings in serum Plan The patient does have a positive TAI but no clear signs of an active rheumatic autoimmune disease. Most of her pains are explainable by osteoarthritis present in the cervical spine, lumbar spine, and the feet. She does have some medial epicondylar tenderness in the right elbow consistent with some medial epicondylitis. Likely this was due to overuse. I suggested we could pursue physical therapy or corticosteroid injection for that but she wants to hold off to see if it improves now that she is not doing the sanding. She has some limitation of motion in the right hip and I wonder if some of her pain in the leg that she is attributing to sciatica is not some OA in the hip. We will check a hip film to look at that. The x-ray from the lumbar spine from 2 years ago did not show hip OA at that time. I will check some other antibody studies to investigate the TAI. She had recent chemistries, iron level, TSH and CBC that were normal. I do not have a good explanation for her complaint of fatigue but it sounds like she does have nocturia x2 or 3 which may interfere enough with her sleep to make her sleepy or tired during the daytime. We will get back to her with the results of her studies as they come in in the next 2 weeks. Time taking the history, review of her record, her exam and discussion of the findings took 49 minutes Orders: Orders 2 XR hip BI w PEL1V Today M25.551 - Pain in right hip Anti DNA DS Antibody Today M25.551 - Pain in right hip, R76.8 - Other specified abnormal immunological findings in serum Anti Extractable Nuclear Ag Today M25.551 - Pain in right hip, R76.8 - Other specified abnormal immunological findings in serum Erythrocyte Sedimentation Rate Today M25.551 - Pain in right hip, R76.8 - Other specified abnormal immunological findings in serum C Reactive Protein Today M25.551 - Pain in right hip, R76.8 - Other specified abnormal immunological findings in serum Medications: New gabapentin 300 mg PO BEDTIME 30 caps 0RF Discontinued phentermine must administer 2 hours after breakfast Discontinued Reason: Patient Completed Course 30 mg PO DAILY 30 days 30 caps 2RF Coding Level of Care Code New Pt Level 4 (95293) Diagnoses Fatigue R53.83 Medial epicondylitis, right elbow M77.01 Hip pain, right M25.551 Osteoarthritis of lumbar spine M47.816 Cervical osteoarthritis M47.812 Compression fracture of L1 lumbar vertebra S32.010A TAI positive R76.8
== END 2022-08-31 11:19 | disposition home or self-care (01) ==
PROVIDERS: PCP Nurse Practitioner Family; Visit Provider Internal Medicine Rheumatology
DX: R53.83 Other fatigue (principal); M77.01 Medial epicondylitis, right elbow; M25.551 Pain in right hip; M47.816 Spondylosis without myelopathy or radiculopathy, lumbar region; M47.812 Spondylosis without myelopathy or radiculopathy, cervical region; S32.010A Wedge compression fracture of first lumbar vertebra, initial encounter for closed fracture; R76.8 Other specified abnormal immunological findings in serum
CPT/HCPCS: 99204

== ENCOUNTER → 2022-08-31 10:07 | Outpatient (BNVA) | payer MEDICARE, SELFPAY | PROVIDERS: PCP Nurse Practitioner Family; Visit Provider Internal Medicine Rheumatology | DX: R76.8 Other specified abnormal immunological findings in serum (principal); M77.01 Medial epicondylitis, right elbow; M47.816 Spondylosis without myelopathy or radiculopathy, lumbar region; M47.812 Spondylosis without myelopathy or radiculopathy, cervical region; S32.010A Wedge compression fracture of first lumbar vertebra, initial encounter for closed fracture; R53.83 Other fatigue; M25.551 Pain in right hip | CPT/HCPCS: 99202 ==

== ENCOUNTER 2022-08-31 11:41 | Outpatient (REF) | payer MEDICARE, SELFPAY ==
--- NOTE | ~2022-08-31 | XR_ITS ---
EXAMINATION: XR BILATERAL HIPS WITH AP PELVIS CLINICAL INFORMATION: Right hip pain COMPARISON: None available. TECHNIQUE: AP view of the pelvis and single views of each hip were obtained. 5 views FINDINGS: No fracture. Hip joint spaces are maintained. Alignment is anatomic. Sacroiliac joints and pubic symphysis are normal. No calcifications within the pelvis centrally most consistent fibroid uterus. XR/XR hip BI w PEL1V IMPRESSION: No acute fracture or dislocation of the pelvis or hips. Incidental fibroid uterus.
[2022-08-31 14:31] LABS: Erythrocyte Sedimentation Rate 5 MM/HR (0-20)
[2022-08-31 14:32] LABS: C Reactive Protein 0.13 mg/dL (< or = 0.50)
[2022-09-02 17:34] LABS: Anti DNA DS Antibody <1 IU/mL; SM/Ribonucleoprotein Ab <1.0 NEG AI (<1.0 NEG); Smith Protein <1.0 NEG AI (<1.0 NEG)
== END 2022-08-31 11:42 | disposition home or self-care (01) ==
LOC: HO.HMGCX 11:41
PROVIDERS: PCP Nurse Practitioner Family; Visit Provider Internal Medicine Rheumatology
DX: M25.551 Pain in right hip (principal); R53.83 Other fatigue; M77.01 Medial epicondylitis, right elbow; M47.816 Spondylosis without myelopathy or radiculopathy, lumbar region; M47.812 Spondylosis without myelopathy or radiculopathy, cervical region; S32.010D Wedge compression fracture of first lumbar vertebra, subsequent encounter for fracture with routine healing; R76.8 Other specified abnormal immunological findings in serum
CPT/HCPCS: 36415; 73521; 85652; 86140; 86225; 86235

== ENCOUNTER 2022-10-16 08:25 | Outpatient (AMB) | payer MEDICARE, SELFPAY ==
--- NOTE | 2022-10-16 08:30 | AM.OFFWIN_ITS ---
Intake Vital Signs 10/16/22 08:32 Weight 146 lb BP 120/80 Blood Pressure Location Rt brachial Position Sitting Pulse 96 Pulse Source Pulse Oximeter Temp 97.5 F Temp Source Temporal Artery Scan Pulse Oximetry (%) 98 Oxygen Delivery Method Room Air Intake Visit Reasons: EP, sinus congestion (masked) Intake Note: Patient here for sinus infection which has been present since last weekend. Patient Tobacco Use Status: Former Tobacco user Allergies prednisone [PREDNISONE] Allergy (Severe, Verified 10/16/22 09:00) FLUSHING/DIFFICULTY SWALLOWING, anaphalactic reaction codeine [CODEINE] Allergy (Intermediate, Verified 10/16/22 09:00) N/V Medication List - Last Reconciled 10/16/22 by Vipul Reynolds MD albuterol sulfate 90 mcg/actuation (ProAir HFA) 1 inh inhalation QID PRN 30 days biotin 2,500 mcg PO DAILY calcium carbonate-vitamin D3 600 mg-10 mcg (400 unit) (Calcium with Vitamin D) 1 tab PO BID 90 days cyclobenzaprine 10 mg PO BEDTIME gabapentin 300 mg PO BEDTIME lidocaine 4% (AsperFlex (lidocaine)) 1 patch topical DAILY PRN multivitamin (Daily Multi-Vitamin tablet) 1 tab PO DAILY omeprazole 40 mg PO DAILY Do you need a note to return to daycare/school/sports/work: No HPI EP, sinus congestion (masked) HPI Details Patient presents for a sick visit. Reporting symptoms of sinus congestion, sore throat and difficulty swallowing. Low-grade fever. No family member is sick. No recent travel. Patient reports symptoms of malaise and fatigue. [facility] Medical History Asthma COPD (chronic obstructive pulmonary disease) Osteopenia Surgical History H/O colonoscopy History of arthroscopy of both knees History of hysteroscopy S/P shoulder surgery Family History Father No problems noted. Mother Leukemia Breast cancer Social History (Updated 08/31/22 @ 10:26 by PAULA Alcantar) Household Members: Sp[facility] Alcohol intake: current Alcohol intake frequency: a few times a week Patient Tobacco Use Status: Former Tobacco user Years Smoked: 40 years e-Cigarette/Vaping Use: Never Used Second Hand Smoke Exposure: No service: No Current occupational status: employed Current occupation: real estate Current occupational exposures/hazards: No Cognitive needs: No Hearing needs: No Vision needs: No Physical Exam Vital Signs: Last Vital Signs Temp 97.5 F 10/16/22 08:32 Pulse 96 10/16/22 08:32 BP 120/80 10/16/22 08:32 Pulse Ox 98 10/16/22 08:32 Oxygen Delivery Method Room Air 10/16/22 08:32 Const General: cooperative and healthy appearing Nutritional Appearance: well nourished Orientation/consciousness: patient oriented x3 Limitations: no limitations HEENT Head: Yes normal to inspection Eyes General: appearance normal, both eyes and all related structures Neck Neck: Yes normal visual inspection Chest Chest palpation & inspection: normal palpation of entire chest wall Resp Effort & Inspection: normal respiratory effort Neuro General: patient oriented x3 Assessment & Plan Assessment & Plan (1) Upper respiratory tract infection: Code(s): J06.9 - Acute upper respiratory infection, unspecified Plan: Antibiotics ordered. Increase fluid intake. Tylenol for aches and pains. If symptoms worsen, follow-up here for a recheck. Coding Level of Care Code Est Pt Level 3 (27769) Diagnoses Upper respiratory tract infection J06.9
[2022-10-16 08:32] VITALS: BP 120/80; PULSE 96; TEMP 36.4; O2SAT 98
== END 2022-10-16 09:16 | disposition home or self-care (01) ==
PROVIDERS: PCP Nurse Practitioner Family; Visit Provider Internal Medicine
DX: J06.9 Acute upper respiratory infection, unspecified (principal)
CPT/HCPCS: 99213

== ENCOUNTER 2022-10-16 13:03 | Outpatient (REF) | payer MEDICARE, SELFPAY ==
[2022-10-16 13:44] LABS: Influenza A PCR NEGATIVE (Negative); Influenza B PCR NEGATIVE (Negative); Resp Syncy Virus RNA Qual PCR NEGATIVE (Negative); SARS COV2 PCR INHOUSE POSITIVE (Negative)
== END 2022-10-16 13:04 | disposition home or self-care (01) ==
LOC: HO.LNP 13:03
PROVIDERS: Visit Provider Internal Medicine
DX: Z20.822 Contact with and (suspected) exposure to COVID-19 (principal); R43.9 Unspecified disturbances of smell and taste
CPT/HCPCS: 0241U

== ENCOUNTER 2022-11-16 08:40 | Outpatient (AMB) | payer MEDICARE, SELFPAY ==
--- NOTE | 2022-11-16 08:56 | MHC.PC.OV ---
Vital Signs 11/16/22 08:57 Height 5 ft 5 in Weight 163 lb BMI 27.1 BP 120/60 Blood Pressure Location Rt brachial Position Sitting Pulse 92 Pulse Source Pulse Oximeter Pulse Oximetry (%) 97 Oxygen Delivery Method Room Air Intake Visit Reasons: 6m follow up COPD Allergies prednisone [PREDNISONE] Allergy (Severe, Verified 11/16/22 08:58) FLUSHING/DIFFICULTY SWALLOWING, anaphalactic reaction codeine [CODEINE] Allergy (Intermediate, Verified 11/16/22 08:58) N/V Medication List - Last Reconciled 11/16/22 by ESTHELA Roe-ALEJO albuterol sulfate 90 mcg/actuation (ProAir HFA) 1 inh inhalation QID PRN 30 days azithromycin take 500 mg today (day 1), then 250 mg for 4 days (days 2-5) PO biotin 2,500 mcg PO DAILY calcium carbonate-vitamin D3 600 mg-10 mcg (400 unit) (Calcium with Vitamin D) 1 tab PO BID 90 days cyclobenzaprine 10 mg PO BEDTIME gabapentin 300 mg PO BEDTIME 90 days lidocaine 4% (AsperFlex (lidocaine)) 1 patch topical DAILY PRN multivitamin (Daily Multi-Vitamin tablet) 1 tab PO DAILY omeprazole 40 mg PO DAILY Tobacco use date assessed: 11/16/22 Fall risk assessment: No Falls in past year Last assessed Fall Risk: 11/16/22 Dental Screening Dental Screen Date: 11/16/22 Did you have a dental visit in the last 12 months?: Yes Did you have a dental problem in the last 6 months where you did not have access to dental care?: No Was dental information given to patient?: Patient has dentist HPI 6m follow up COPD HPI Details Pt c/o lower back pain with radicular symptoms to her RLE. She had a previous xr which showed mild superior plate compression L1, new from remote CT 06/21/2014. Pt has been stretching at home with no relief. Will order MRI and refer to spine clinic. Denies any signs of cauda equina. [facility] Medical History Asthma COPD (chronic obstructive pulmonary disease) Osteopenia Surgical History S/P shoulder surgery History of hysteroscopy History of arthroscopy of both knees H/O colonoscopy Family History Father No problems noted. Mother Leukemia Breast cancer Social History [facility]hold Members: [facility] Alcohol intake: current Alcohol intake frequency: a few times a week Patient Tobacco Use Status: Former Tobacco user Years Smoked: 40 years e-Cigarette/Vaping Use: Never Used Second Hand Smoke Exposure: No service: No Current occupational status: employed Current occupation: [employer] Current occupational exposures/hazards: No Cognitive needs: No Hearing needs: No Vision needs: No Questionnaire Thrive Questionnaire Date Thrive assessed: 11/14/20 AUDIT C Alcohol Use Questionnaire (AUDIT-C) 1. How often do you have a drink containing alcohol?: 2-3 times a week 2. How many drinks containing alcohol do you have on a typical day when you are drinking?: 3 or 4 3. How often do you have six or more drinks on one occasion?: Less than monthly Total Score: 5 Review of Systems Const Reports as per HPI Physical exam (Primary Care) Vital Signs: Last Vital Signs Pulse 92 11/16/22 08:57 BP 120/60 11/16/22 08:57 Pulse Ox 97 11/16/22 08:57 Oxygen Delivery Method Room Air 11/16/22 08:57 BMI result Body Mass Index 27.1 Tobacco/Smoking Status: Tobacco use Status Tobacco use date assessed 11/16/22 11/16/22 09:00 Patient Tobacco Use Status Former Tobacco user 11/16/22 09:00 e-Cigarette/Vaping Use Never Used 11/16/22 09:00 Thrive Assessment: Date of Thrive Assessment Date Thrive assessed 11/14/20 11/16/22 09:00 Const General: cooperative Orientation/consciousness: patient oriented x3 Resp Effort & Inspection: normal respiratory effort Auscultation: clear to auscultation bilaterally Cardio Rate: regular rate Rhythm: regular rhythm Heart sounds: S1 normal heart sound present and S2 normal heart sound present Back/Spine/Pelvis Other: excessive radiculopathy down RLE with heel and toe walking and entire RLE raises Neuro Other: + patellar reflexes, + DP General: patient oriented x3 Psych Appearance: grossly normal Mental Status: mental status grossly normal Speech and movement: Normal speech and movement present Affect: normal affect Attitude: cooperative Thought process: Normal thought process present Thought content: Normal thought content present Insight: Good insight present (Psych) Judgement: Good judgement present (Psych) Assessment and Plan Assessment & Plan (1) Compression fracture of L1 lumbar vertebra: Code(s): S32.010A - Wedge compression fracture of first lumbar vertebra, initial encounter for closed fracture Plan: MRI ordered (2) Chronic radicular pain of lower back: Code(s): M54.16 - Radiculopathy, lumbar region; G89.29 - Other chronic pain Plan: MRI ordered Plan The patient agreed to the use of a medical laboratory scientist for this encounter. Scribed for ESTHELA Guerra-ALEJO by Tish De León medical laboratory scientist, on 11/16/2022 at 09:05 EST Orders: Orders MR lumbar spine wo con Today G89.29 - Other chronic pain, M54.16 - Radiculopathy, lumbar region, S32.010A - Wedge compression fracture of first lumbar vertebra, initial encounter for closed fracture Medications: Changed From gabapentin 300 mg PO BEDTIME 30 caps 0RF To gabapentin 300 mg PO BEDTIME 90 caps 0RF 90 days Coding Level of Care Code Est Pt Level 3 (53240) Diagnoses Compression fracture of L1 lumbar vertebra S32.010A Chronic radicular pain of lower back M54.16; G89.29
[2022-11-16 08:57] VITALS: BP 120/60; PULSE 92; O2SAT 97; BMI 27.1
== END 2022-11-16 09:23 | disposition home or self-care (01) ==
PROVIDERS: Visit Provider Nurse Practitioner Family
DX: S32.010A Wedge compression fracture of first lumbar vertebra, initial encounter for closed fracture (principal); M54.16 Radiculopathy, lumbar region; G89.29 Other chronic pain; J44.9 Chronic obstructive pulmonary disease, unspecified
CPT/HCPCS: 99213

== ENCOUNTER 2023-01-25 08:44 | Outpatient (REF) | payer MEDICARE, SELFPAY ==
[2023-01-25 16:18] LABS: Appearance Urine Clear; Color Urine Yellow; Glucose Urine UA Negative (Negative); Leukocyte Esterase Urine Small (1+) (Negative); Nitrite Urine Negative (Negative); PH 5.5 (5.0-9.0); UMIC TRIGGER UACC YES; Urine Blood Negative (Negative); Urine Ketones Negative (Negative); Urine Protein Negative (Neg-Trace)
[2023-01-25 16:29] LABS: Bacteria Urine None Seen (None Seen); Hyaline Casts Urine 0-2 /LPF (0-2); UACC Culture Trigger YES
== END 2023-01-25 08:45 | disposition home or self-care (01) ==
LOC: HO.MAMMO 08:44
PROVIDERS: PCP Nurse Practitioner Family; Visit Provider Nurse Practitioner Family
DX: R30.0 Dysuria (principal); Z12.31 Encounter for screening mammogram for malignant neoplasm of breast
CPT/HCPCS: 77063; 77067; 81001; 87086

== ENCOUNTER → 2023-01-25 09:00 | Outpatient (BNV) | payer MEDICARE, SELFPAY | PROVIDERS: PCP Nurse Practitioner Family; Visit Provider Radiology Diagnostic Radiology | DX: Z12.31 Encounter for screening mammogram for malignant neoplasm of breast (principal) | CPT/HCPCS: 77063; 77067 ==

== ENCOUNTER 2023-01-29 09:01 | Outpatient (AMB) | payer MEDICARE, SELFPAY ==
--- NOTE | 2023-01-29 09:46 | A.SPINEOV_ITS ---
Intake Intake Visit Reasons: radiculopathy lumbar region Intake Note: Ms. Curtis is here today c/o low back pain radiating down left leg into foot. MRI done @ [place] [facility] [employer] Operator Required: No Allergies prednisone [PREDNISONE] Allergy (Severe, Verified 11/16/22 08:58) FLUSHING/DIFFICULTY SWALLOWING, anaphalactic reaction codeine [CODEINE] Allergy (Intermediate, Verified 11/16/22 08:58) N/V Assessment & Plan Assessment & Plan (1) Chronic radicular pain of lower back: Code(s): M54.16 - Radiculopathy, lumbar region; G89.29 - Other chronic pain Plan Dear Gwyn Thank you for referring Mrs Curtis to our office today. She is a very nice 67 y/o female with h/o right L5 radiculopathy for at least one year. It has been getting steadily worse over the last few months. It bothers her all throughout the day, even at night when sleeping. She cannot recall exactly when it happened, but it may have been around the time when she had a fall and sustained an L1 compression fracture. She has been trying Aleve and Tylenol without much success. She is here today for surgical evaluation with a lumbar MRI. To this point, she has not done any dedicated conservative treatment. PMH: She is otherwise healthy, history of knee replacement and GERD Social hx: She does not smoke or drink any significant levels of alcohol or use any recreational drugs Medications: Prilosec, biotin, calcium Allergies: Prednisone Physical exam: Awake alert oriented, gait, motor exam intact, positive finger Leta test, positive GENNA sign inducing pain over her right SI joint Imaging review: Lumbar MRI at [place] shows evidence of a healed compression fracture at L1. Otherwise she has mild degenerative disc disease and there is no significant central canal stenosis. There is no foraminal stenosis. She had regular x-rays done a number of months ago in this shows evidence of ost eopenia/osteoporosis. Impression: 67-year-old female presents with right-sided low back pain going down her leg in an L5 distribution without any evidence on the MRI convincing for nerve compression. I will send her for standing flexion-extension x-rays to rule out occult instability. I think it more likely that the patient has SI joint inflammation possibly related to her fall and is well known that this can mimic a lumbar radiculopathy. She has positive physical exam findings for SI joint irritation and has classic pain at night. We discussed the possibility of an injection into the SI joint, but she has had a bad experience with an injection a number of years ago and does not wish to consider it. We would need that injection in order to have a diagnostic proof of the source of her pain. She is going to think about that get back to me let me know how she would like to proceed. Otherwise unless the x-ray shows something significant I do not have anything to offer her at this time. She could consider physical therapy etc. but I do not think there is going to be much usefulness in that. Thank you for allowing us to care for your patient. The total time spent with this visit with this patient was 45 minutes reviewing history, physical exam, lumbar imaging review, and implementation of treatment plan or further diagnostic testing Jordy Armstrong MD,PhD [facility] Orders: Orders XR lumbar spine 4V min Today G89.29 - Other chronic pain, M54.16 - Radiculopathy, lumbar region Coding Level of Care Code New Pt Level 4 (35457) Diagnoses Chronic radicular pain of lower back M54.16; G89.29
== END 2023-01-29 10:24 | disposition home or self-care (01) ==
PROVIDERS: PCP Nurse Practitioner Family; Referring Provider Nurse Practitioner Family; Visit Provider Physician Assistant
DX: M54.16 Radiculopathy, lumbar region (principal); G89.29 Other chronic pain
CPT/HCPCS: 99204

== ENCOUNTER 2023-01-29 09:01 | Outpatient (REF) | payer MEDICARE, SELFPAY ==
--- NOTE | ~2023-01-29 | XR_ITS ---
EXAMINATION: XR LUMBOSACRAL SPINE WITH OBLIQUES CLINICAL INFORMATION: Lumbar spine pain COMPARISON: Lumbar spine x-ray on 01/20/2021 TECHNIQUE: AP, and lateral views of the lumbar spine. Lateral view of the lumbosacral junction. FINDINGS: There is mild T12-L1 dextroscoliosis. Marked wedge compression fracture of L1 is seen. Intervertebral disc spaces are normal. Lumbar spine alignment is normal and stable in flexion and extension. Densely calcified mass lesion is seen in right parasagittal pelvic cavity measuring 3.2 x 2.9 cm in size. XR/XR lumbar spine 4V min IMPRESSION: 1. Interval increase in compression fracture of L1 vertebral body. 2. Persistent right parasagittal calcified pelvic mass lesion suggestive of leiomyoma.
== END 2023-01-29 09:02 | disposition home or self-care (01) ==
LOC: HO.HOSX 09:01
PROVIDERS: PCP Nurse Practitioner Family; Referring Provider Nurse Practitioner Family; Visit Provider Physician Assistant
DX: M54.16 Radiculopathy, lumbar region (principal); G89.29 Other chronic pain
CPT/HCPCS: 72110; 99202

== ENCOUNTER 2023-05-17 09:34 | Outpatient (AMB) | payer MEDICARE, SELFPAY ==
--- NOTE | 2023-05-17 09:39 | MHC.PC.OV ---
Vital Signs 05/17/23 09:41 Weight 157 lb BP 120/86 Blood Pressure Location Lt brachial Position Sitting Pulse 78 Pulse Source Pulse Oximeter Pulse Oximetry (%) 98 Oxygen Delivery Method Room Air Intake Visit Reasons: Pre-Op-eye surgery- No EKG needed Intake Note: Patient here for preop for cataract surgery w/ Allergies prednisone [PREDNISONE] Allergy (Severe, Verified 05/17/23 09:57) FLUSHING/DIFFICULTY SWALLOWING, anaphalactic reaction codeine [CODEINE] Allergy (Intermediate, Verified 05/17/23 09:57) N/V Medication List - Last Reconciled 05/17/23 by ESTHELA Roe-ALEJO albuterol sulfate 90 mcg/actuation (ProAir HFA) 1 inh inhalation QID PRN 30 days biotin 2,500 mcg PO DAILY calcium carbonate-vitamin D3 600 mg-10 mcg (400 unit) (Calcium with Vitamin D) 1 tab PO BID 90 days cyclobenzaprine 10 mg PO BEDTIME cyclobenzaprine 10 mg PO BEDTIME gabapentin 300 mg PO BEDTIME 90 days lidocaine 4% (AsperFlex (lidocaine)) 1 patch topical DAILY PRN meclizine 25 mg PO DAILY PRN multivitamin (Daily Multi-Vitamin tablet) 1 tab PO DAILY omeprazole 40 mg PO DAILY Tobacco use date assessed: 05/17/23 Fall risk assessment: No Falls in past year Last assessed Fall Risk: 05/17/23 Dental Screening Dental Screen Date: 05/17/23 HPI Pre-Op-eye surgery- No EKG needed HPI Details Pt is here for a pre-op evaluation. She is scheduled for cataract surgery. No EKG or labs are needed. Pt is cleared for surgery from my standpoint. [facility] Medical History Asthma COPD (chronic obstructive pulmonary disease) Osteopenia Surgical History S/P shoulder surgery History of hysteroscopy History of arthroscopy of both knees H/O colonoscopy Family History Father No problems noted. Mother Leukemia Breast cancer Social History [facility]: [facility] Alcohol intake: current Alcohol intake frequency: a few times a week Patient Tobacco Use Status: Former Tobacco user Years Smoked: 40 years e-Cigarette/Vaping Use: Never Used Second Hand Smoke Exposure: No service: No Current occupational status: employed Current occupation: [employer] Current occupational exposures/hazards: No Cognitive needs: No Hearing needs: No Vision needs: No Questionnaire Thrive Questionnaire Date Thrive assessed: 11/14/20 AUDIT C Alcohol Use Questionnaire (AUDIT-C) 1. How often do you have a drink containing alcohol?: 4 or more times a week 2. How many drinks containing alcohol do you have on a typical day when you are drinking?: 3 or 4 3. How often do you have six or more drinks on one occasion?: Never Total Score: 5 Score Reviewed/Action Taken: No Review of Systems Const Denies chills and Denies fever(s) Eyes Denies blurry vision ENT Denies vertigo, Denies dizziness and Denies sore throat Card Denies chest pain at rest, Denies chest pain with activity, Denies diaphoresis, Denies dyspnea and Denies dyspnea on exertion Resp Denies cough, Denies dyspnea, Denies dyspnea on exertion and Denies wheezing GI Denies abdominal pain, Denies melena, Denies hematochezia, Denies constipation, Denies diarrhea and Denies loose stools Denies hematuria Musc Denies numbness and Denies tingling Skin/Breast Denies lesions Neuro Denies vertigo, Denies dizziness, Denies numbness and Denies tingling Psych Denies anxiety, Denies depression, Denies homicidal ideation, Denies suicidal ideation and Denies other (substance abuse) Aller/Immun Denies wheezing Physical exam (Primary Care) Vital Signs: Last Vital Signs Pulse 78 05/17/23 09:41 BP 120/86 05/17/23 09:41 Pulse Ox 98 05/17/23 09:41 Oxygen Delivery Method Room Air 05/17/23 09:41 Tobacco/Smoking Status: Tobacco use Status Tobacco use date assessed 05/17/23 05/17/23 09:46 Patient Tobacco Use Status Former Tobacco user 05/17/23 09:46 e-Cigarette/Vaping Use Never Used 05/17/23 09:46 Thrive Assessment: Date of Thrive Assessment Date Thrive assessed 11/14/20 05/17/23 09:46 Const General: cooperative Nutritional Appearance: well nourished Orientation/consciousness: patient oriented x3 Neck Neck: Yes no lymphadenopathy Resp Effort & Inspection: normal respiratory effort Auscultation: clear to auscultation bilaterally Cardio Rate: regular rate Rhythm: regular rhythm Heart sounds: S1 normal heart sound present, S2 normal heart sound present and no murmurs Neuro General: patient oriented x3 Psych Appearance: grossly normal Mental Status: mental status grossly normal Speech and movement: Normal speech and movement present Affect: normal affect Attitude: cooperative Thought process: Normal thought process present Thought content: Normal thought content present Insight: Good insight present (Psych) Judgement: Good judgement present (Psych) Assessment and Plan Assessment & Plan (1) Pre-op evaluation: Code(s): Z01.818 - Encounter for other preprocedural examination Plan The patient agreed to the use of a mobile paramedical examiner for this encounter. Scribed for JOELLEN Guerra by Tish De León mobile paramedical examiner, on 05/17/2023 at 09:55 EST. Medications: Changed From cyclobenzaprine 10 mg PO BEDTIME 10 tabs 0RF To cyclobenzaprine 10 mg PO BEDTIME 30 tabs 2RF 30 days Refilled cyclobenzaprine 10 mg PO BEDTIME 10 tabs 0RF Coding Level of Care Code Est Pt Prev Care >65y(54548) Diagnoses Pre-op evaluation Z01.818
[2023-05-17 09:41] VITALS: BP 120/86; PULSE 78; O2SAT 98
== END 2023-05-17 13:24 | disposition home or self-care (01) ==
PROVIDERS: PCP Nurse Practitioner Family; Visit Provider Nurse Practitioner Family
DX: Z01.818 Encounter for other preprocedural examination (principal)
CPT/HCPCS: 99213

== ENCOUNTER 2023-06-04 08:24 | Outpatient (AMB) | payer MEDICARE, SELFPAY ==
[2023-06-04 09:52] VITALS: BP 122/90; PULSE 96; TEMP 37.1; O2SAT 96; BMI 27.6
--- NOTE | 2023-06-04 09:52 | MHC.OFFWIV ---
Intake Vital Signs 06/04/23 09:52 Height 5 ft 5 in Weight 166 lb BMI 27.6 BP 122/90 H Blood Pressure Location Lt brachial Position Sitting Pulse 96 Pulse Source Pulse Oximeter Temp 98.8 F Temp Source Temporal Artery Scan Pulse Oximetry (%) 96 Oxygen Delivery Method Room Air Intake Visit Reasons: EP ?Sinus Infection Intake Note: pt is here today for sinus infection started 2 days ago Patient Tobacco Use Status: Former Tobacco user Allergies prednisone [PREDNISONE] Allergy (Severe, Verified 06/04/23 09:55) FLUSHING/DIFFICULTY SWALLOWING, anaphalactic reaction codeine [CODEINE] Allergy (Intermediate, Verified 06/04/23 09:55) N/V Do you need a note to return to daycare/school/sports/work: No HPI EP ?Sinus Infection HPI Details Patient is a 68-year-old female comes to the walk-in clinic complaining postnasal drip, nasal congestion, and starting with sinus fullness and frontal headache for the last 2 days. She denies weakness or dizziness, myalgias or malaise, fever chills, nausea vomiting or diarrhea, chest pain or shortness breath, ear pain, sore throat, or other significant associated symptoms. [facility] Medical History COPD (chronic obstructive pulmonary disease) Osteopenia Asthma Surgical History S/P shoulder surgery History of hysteroscopy History of arthroscopy of both knees H/O colonoscopy Family History Father No problems noted. Mother Leukemia Breast cancer Social History Household Members: Spouse Housing: Condominium Alcohol intake: current Alcohol intake frequency: a few times a week Patient Tobacco Use Status: Former Tobacco user Years Smoked: 40 years e-Cigarette/Vaping Use: Never Used Second Hand Smoke Exposure: No service: No Current occupational status: employed Current occupation: real estate Current occupational exposures/hazards: No Cognitive needs: No Hearing needs: No Vision needs: No Review of Systems Const All systems reviewed & are unremarkable except as noted in HPI and below Physical Exam Vital Signs: Last Vital Signs Temp 98.8 F 06/04/23 09:52 Pulse 96 06/04/23 09:52 BP 122/90 H 06/04/23 09:52 Pulse Ox 96 06/04/23 09:52 Oxygen Delivery Method Room Air 06/04/23 09:52 BMI result Body Mass Index 27.6 Const General: cooperative, healthy appearing, comfortable, no acute distress, alert, awake, Physically active and well groomed; No anxious, diaphoretic, intoxicated appearing, poor hygiene or tired appearing Nutritional Appearance: average body habitus Orientation/consciousness: oriented to person Limitations: no limitations HEENT Head: Yes normal to inspection, Yes normocephalic and Yes atraumatic Ears: hearing grossly normal bilaterally, external ears normal, TM's normal bilaterally and EAC's normal General nose exam: Normal external nose present, Abnormal mucous membranes and turbinates present and Nasal discharge present Face and sinus: Yes sinus tenderness Mouth: Normal oral and palatal mucosa present, lip normal and tongue normal Throat: Yes abnormal tonsil (mildly erythematous bilaterally), No peritonsillar mass, Yes postnasal drainage, No uvular edema and No cobblestoning Eyes General: appearance normal, both eyes and all related structures Neck Neck: Yes normal visual inspection, Yes no lymphadenopathy, Yes trachea midline, Yes supple and No anterior neck swelling Chest Chest palpation & inspection: normal palpation of entire chest wall Resp Effort & Inspection: normal respiratory effort, able to speak in complete sentences, no audible wheezes, no cough, no grunting, not labored, no nasal flaring, no retractions and symmetric chest movement Auscultation: clear to auscultation bilaterally, no crackles, no rales, no rhonchi, no wheezes, lung sounds not diminished and No rub present Cardio Palpation: normal PMI Rate: regular rate Rhythm: regular rhythm Heart sounds: S1 normal heart sound present and S2 normal heart sound present Skin Other: Good color, warm and dry Neuro General: oriented to person Psych Appearance: grossly normal Mental Status: mental status grossly normal Speech and movement: Normal speech and movement present Affect: normal affect Attitude: cooperative Thought process: Normal thought process present Insight: Good insight present (Psych) Judgement: Good judgement present (Psych) Assessment & Plan Assessment & Plan (1) Acute sinusitis: Code(s): J01.90 - Acute sinusitis, unspecified Qualifiers: Recurrence: not specified as recurrent Sinusitis location: frontal Qualified Code(s): J01.10 - Acute frontal sinusitis, unspecified Plan: Patient written for azithromycin, and supportive care for upper respiratory infection discussed. Pending flu COVID and RSV results. She knows to follow up if symptoms persist or worsen. Orders: Orders SARS-CoV2/FLU/RSV 06/04/23 R05.9 - Cough, unspecified Medications: New azithromycin take 500 mg today (day 1), then 250 mg for 4 days (days 2-5) PO 6 tabs 0RF Coding Level of Care Code Est Pt Level 4 (04590) Diagnoses Acute frontal sinusitis, recurrence not specified J01.10 Recurrence: not specified as recurrent Sinusitis location: frontal
== END 2023-06-04 12:20 | disposition home or self-care (01) ==
PROVIDERS: PCP Nurse Practitioner Family; Visit Provider Physician Assistant Medical
DX: J01.10 Acute frontal sinusitis, unspecified (principal)
CPT/HCPCS: 99214

== ENCOUNTER 2023-06-04 13:19 | Outpatient (REF) | payer MEDICARE, SELFPAY ==
[2023-06-04 15:06] LABS: Influenza A PCR NEGATIVE (Negative); Influenza B PCR NEGATIVE (Negative); Resp Syncy Virus RNA Qual PCR NEGATIVE (Negative); SARS COV2 PCR INHOUSE NEGATIVE (Negative)
== END 2023-06-04 13:20 | disposition home or self-care (01) ==
LOC: HO.HMGCLNP 13:19
PROVIDERS: Visit Provider Physician Assistant Medical
DX: R05.9 Cough, unspecified (principal); J06.9 Acute upper respiratory infection, unspecified
CPT/HCPCS: 0241U

== ENCOUNTER 2023-08-24 08:44 | Outpatient (AMB) | payer MEDICARE, SELFPAY ==
--- NOTE | 2023-08-24 08:45 | MHC.PC.OV ---
Vital Signs 08/24/23 08:48 Height 5 ft 5 in Weight 166 lb 4 oz BMI 27.7 BP 120/80 Blood Pressure Location Lt brachial Position Sitting Pulse 78 Pulse Source Pulse Oximeter Pulse Oximetry (%) 98 Oxygen Delivery Method Room Air Intake Visit Reasons: Annual Physical Intake Note: Patient here for physical exam. Mammo: 2023 BD:2021 Allergies prednisone [PREDNISONE] Allergy (Severe, Verified 08/24/23 08:49) FLUSHING/DIFFICULTY SWALLOWING, anaphalactic reaction codeine [CODEINE] Allergy (Intermediate, Verified 08/24/23 08:49) N/V Medication List - Last Reconciled 08/24/23 by ESTHELA Roe-ALEJO albuterol sulfate 90 mcg/actuation (ProAir HFA) 1 inh inhalation QID PRN 30 days azithromycin take 500 mg today (day 1), then 250 mg for 4 days (days 2-5) PO biotin 2,500 mcg PO DAILY cyclobenzaprine 10 mg PO BEDTIME 30 days gabapentin 300 mg PO BEDTIME 90 days lidocaine 4% (AsperFlex (lidocaine)) 1 patch topical DAILY PRN meclizine 25 mg PO DAILY PRN multivitamin (Daily Multi-Vitamin tablet) 1 tab PO DAILY omeprazole 40 mg PO DAILY Tobacco use date assessed: 05/17/23 Fall risk assessment: No Falls in past year Last assessed Fall Risk: 08/24/23 Dental Screening Dental Screen Date: 05/17/23 HPI Annual Physical HPI Details Pt is here for a PE. Will order labs. Colon screen is up to date. Mammo is up to date. Due for bone density, will order. Pt has a hx of COPD. She is using a ANDREA intermittently. [facility] Medical History (Updated 08/24/23 @ 08:55 by JOELLEN Roe) COPD (chronic obstructive pulmonary disease) Osteopenia Asthma Surgical History S/P shoulder surgery History of hysteroscopy History of arthroscopy of both knees H/O colonoscopy Family History Father No problems noted. Mother Leukemia Breast cancer Social History Household Members: Spouse Housing: Condominium Alcohol intake: current Alcohol intake frequency: a few times a week Patient Tobacco Use Status: Former Tobacco user Years Smoked: 40 years e-Cigarette/Vaping Use: Never Used Second Hand Smoke Exposure: No service: No Current occupational status: employed Current occupation: real estate Current occupational exposures/hazards: No Cognitive needs: No Hearing needs: No Vision needs: No Questionnaire PHQ-9 Over the last 2 weeks, how often have you been bothered by any of the following problems? 17244 - PHQ-9 Billing: Patient declined-do not bill Source: Developed by Drs. Jose Alberto Shepherd, Roxanne Hermosillo, Louie Yepez and colleagues, with an educational sarah from [employer]. Thrive Questionnaire Date Thrive assessed: 11/14/20 AUDIT C Alcohol Use Questionnaire (AUDIT-C) 1. How often do you have a drink containing alcohol?: 4 or more times a week 2. How many drinks containing alcohol do you have on a typical day when you are drinking?: 3 or 4 3. How often do you have six or more drinks on one occasion?: Never Total Score: 5 Score Reviewed/Action Taken: No LUIS-7 AMB Questionnaire LUIS-7 Assessment Billing LUIS-7 Assessment Tool: pt declined-do not bill Review of Systems Const Denies chills and Denies fever(s) Eyes Denies blurry vision ENT Denies vertigo, Denies dizziness and Denies sore throat Card Denies chest pain at rest, Denies chest pain with activity, Denies diaphoresis, Denies dyspnea and Denies dyspnea on exertion Resp Denies cough, Denies dyspnea, Denies dyspnea on exertion and Denies wheezing GI Denies abdominal pain, Denies melena, Denies hematochezia, Denies constipation, Denies diarrhea and Denies loose stools Denies hematuria Musc Denies numbness and Denies tingling Skin/Breast Denies lesions Neuro Denies vertigo, Denies dizziness, Denies numbness and Denies tingling Psych Denies anxiety, Denies depression, Denies homicidal ideation, Denies suicidal ideation and Denies other (substance abuse) Aller/Immun Denies wheezing Physical exam (Primary Care) Vital Signs: Last Vital Signs Pulse 78 08/24/23 08:48 BP 120/80 08/24/23 08:48 Pulse Ox 98 08/24/23 08:48 Oxygen Delivery Method Room Air 08/24/23 08:48 BMI result Body Mass Index 27.7 Tobacco/Smoking Status: Tobacco use Status Tobacco use date assessed 05/17/23 08/24/23 08:46 Patient Tobacco Use Status Former Tobacco user 08/24/23 08:46 e-Cigarette/Vaping Use Never Used 08/24/23 08:46 Thrive Assessment: Date of Thrive Assessment Date Thrive assessed 11/14/20 08/24/23 08:46 Const General: cooperative Nutritional Appearance: well nourished Orientation/consciousness: patient oriented x3 HENMT Head: Yes normal to inspection, Yes normocephalic and Yes atraumatic Ears: TM's normal bilaterally Eyes General: appearance normal, both eyes and all related structures Alignment and Position: alignment normal and position normal Neck Neck: Yes normal visual inspection and Yes no lymphadenopathy Thyroid: Thyroid normal Resp Effort & Inspection: normal respiratory effort Auscultation: clear to auscultation bilaterally Cardio Rate: regular rate Rhythm: regular rhythm Heart sounds: S1 normal heart sound present, S2 normal heart sound present and no murmurs GI Palpation (GI): Soft to palpation and nontender Auscultation: normal bowel sounds Skin Rashes: no rashes Neuro General: patient oriented x3, moves all extremities, no focal motor deficits and deep tendon reflexes 2+ bilaterally Romberg Test: Negative Psych Appearance: grossly normal Mental Status: mental status grossly normal Speech and movement: Normal speech and movement present Affect: normal affect Attitude: cooperative Thought process: Normal thought process present Thought content: Normal thought content present Insight: Good insight present (Psych) Judgement: Good judgement present (Psych) Assessment and Plan Assessment & Plan (1) COPD (chronic obstructive pulmonary disease): Code(s): J44.9 - Chronic obstructive pulmonary disease, unspecified Plan: Stable (2) Encounter for routine adult physical exam with abnormal findings: Code(s): Z00.01 - Encounter for general adult medical examination with abnormal findings Plan: Labs ordered (3) Osteopenia: Comment: DEXA 10/2017 repeat 2019 Code(s): M85.80 - Other specified disorders of bone density and structure, unspecified site Plan: Bone density ordered (4) Postmenopausal: Code(s): Z78.0 - Asymptomatic menopausal state Plan: Bone density ordered Plan The patient agreed to the use of a medical sales representative for this encounter. Scribed for ESTHELA Guerra-ALEJO by Tish De León medical sales representative, on 08/24/2023 at 08:55 EST. Orders: Orders Complete Blood Count Auto Diff Today Z00.01 - Encounter for general adult medical examination with abnormal findings UA CC w/rflx Micro + Cult Today Z00.01 - Encounter for general adult medical examination with abnormal findings Lipid Panel Today Z00.01 - Encounter for general adult medical examination with abnormal findings Vitamin D 25-OH Total Today Z78.0 - Asymptomatic menopausal state XR DEXA axial skeleton 5 Months M85.80 - Other specified disorders of bone density and structure, unspecified site Comprehensive [place]. Panel Fast Today Z00.01 - Encounter for general adult medical examination with abnormal findings TSH reflex Free T4 Today Z00.01 - Encounter for general adult medical examination with abnormal findings Coding Level of Care Code Est Pt Level 3 (54840) Est Pt Prev Care >65y(94168) Diagnoses COPD (chronic obstructive pulmonary disease) J44.9 Encounter for routine adult physical exam with abnormal findings Z00.01 Osteopenia M85.80 Postmenopausal Z78.0
[2023-08-24 08:48] VITALS: BP 120/80; PULSE 78; O2SAT 98; BMI 27.7
== END 2023-08-24 09:16 | disposition home or self-care (01) ==
PROVIDERS: PCP Nurse Practitioner Family; Visit Provider Nurse Practitioner Family
DX: Z00.00 Encounter for general adult medical examination without abnormal findings (principal); J44.9 Chronic obstructive pulmonary disease, unspecified; M85.80 Other specified disorders of bone density and structure, unspecified site; Z78.0 Asymptomatic menopausal state
CPT/HCPCS: 99397

== ENCOUNTER 2023-09-15 08:01 | Outpatient (REF) | payer MEDICARE, SELFPAY ==
[2023-09-15 10:27] LABS: Appearance Urine Turbid; Color Urine Yellow; Glucose Urine UA Negative (Negative); Leukocyte Esterase Urine Small (1+) (Negative); Nitrite Urine Negative (Negative); PH 5.5 (5.0-9.0); Specific Gravity - Urine 1.025 (1.005-1.025); UMIC TRIGGER UACC YES; Urine Blood Negative (Negative); Urine Ketones Negative (Negative); Urine Protein Negative (Neg-Trace)
[2023-09-15 10:31] LABS: MANUAL DIFF FLAG NO
[2023-09-15 10:33] LABS: Bacteria Urine None Seen (None Seen); Hyaline Casts Urine 0-2 /LPF (0-2); RBC Urine 0-2 /HPF (0-2); UACC Culture Trigger YES; WBC Urine 21-50 /HPF (0-5)
[2023-09-15 10:38] LABS: Basophils Percent Auto 0.6 % (0-2); Eosinophils Absolute Auto 0.2 X10*3/uL (0.0-0.4); Hematocrit 38.4 % (37.0-47.0); Hemoglobin 12.9 g/dl (12.0-16.0); Imm Gran Abs Auto 0.01 X10*3/uL (0.00-0.03); Imm Gran Pct Auto 0.2 % (0.0-0.4); Lymphocytes Absolute Auto 1.6 X10*3/uL (1.2-4.9); Lymphocytes Percent Auto 32.3 % (20-40); Mean Corpuscular HGB Conc 33.6 g/dl (31.0-35.0); Mean Corpuscular Hemoglobin 31.5 pg (27.0-33.0); Mean Corpuscular Volume 93.7 fL (80.0-98.0); Mean Platelet Volume 12.4 fL (9.4-12.3); Monocytes Absolute Auto 0.3 X10*3/uL (0.1-1.2); Monocytes Percent Auto 5.7 % (2-11); Neutrophils Absolute Auto 2.9 x10*3/uL (2.0-8.3); Neutrophils Percent Auto 58.2 % (45-73); Platelet Count 201 X10*3/uL (160-400); Red Cell Distribution Width 13.1 % (11.0-16.0); White Blood Count 4.9 X10*3/uL (4.8-10.8)
[2023-09-15 11:06] LABS: Alanine Aminotransferase 16 U/L (0-31); Albumin Level 4.2 g/dL (3.5-5.0); Alkaline Phosphatase 69 U/L (39-117); Anion Gap 10 (12-20); Aspartate Amino Transferase 17 U/L (5-31); Bilirubin Total 0.5 mg/dL (0.0-1.0); Blood Urea Nitrogen 17 mg/dL (9-16); Calcium 9.3 mg/dL (8.4-10.2); Carbon Dioxide 28 mmol/L (22-29); Chloride 108 mmol/L (96-108); Cholesterol 201 mg/dL (<200); Estimated Glomerular Filt Rate > 60; Glucose Fasting 94 mg/dL (60-99); HDL Cholesterol 63 mg/dL (>40); LDL Cholesterol Calculated 126 mg/dL (<100); Potassium 3.8 mmol/L (3.3-5.1); Sodium 142 mmol/L (135-145); Total Protein 6.8 g/dL (6.5-8.0); Triglycerides 61 mg/dL (<150)
[2023-09-15 11:08] LABS: TSH reflex Free T4 3.28 uIU/mL (0.32-4.0); Vitamin D 25-OH Total 53.1 ng/mL (>30)
== END 2023-09-15 08:02 | disposition home or self-care (01) ==
LOC: HO.HMGCLDS 08:01
PROVIDERS: PCP Nurse Practitioner Family; Visit Provider Nurse Practitioner Family
DX: Z00.01 Encounter for general adult medical examination with abnormal findings (principal); Z78.0 Asymptomatic menopausal state
CPT/HCPCS: 36415; 80053; 80061; 81001; 82306; 84443; 85025; 87086; 87088; 87186

== ENCOUNTER 2023-11-22 11:31 | Outpatient (REF) | payer MEDICARE, SELFPAY ==
[2023-11-22 13:29] LABS: Appearance Urine Clear; Color Urine Yellow; Glucose Urine UA Negative (Negative); Leukocyte Esterase Urine Trace (Negative); Nitrite Urine Negative (Negative); UMIC TRIGGER UA YES; Urine Blood Negative (Negative); Urine Ketones Negative (Negative); Urine Protein Negative (Neg-Trace)
[2023-11-22 13:54] LABS: Bacteria Urine None Seen (None Seen); Hyaline Casts Urine 0-2 /LPF (0-2); RBC Urine 0-2 /HPF (0-2); Squamous Epithelial Cell Urine 0-2 /HPF (0-2); WBC Urine 0-5 /HPF (0-5)
== END 2023-11-22 11:32 | disposition home or self-care (01) ==
LOC: HO.HMGCLDS 11:31
PROVIDERS: PCP Nurse Practitioner Family; Visit Provider Nurse Practitioner Family
DX: R30.0 Dysuria (principal)
CPT/HCPCS: 81001; 87086

== ENCOUNTER 2024-01-27 08:55 | Outpatient (REF) | payer MEDICARE, SELFPAY ==
--- NOTE | ~2024-01-27 | MM_ITS ---
EXAMINATION: BONE DENSITOMETRY CLINICAL INDICATION: Other specified disorders of bone density and structure, unspecified. COMPARISON: Previous BD dated 01/22/2022 and baseline BD dated 01/06/2005. TECHNIQUE: Using a [employer] DXA System (software version: 13.1) manufactured by [employer], dual-energy x-ray absorptiometry was performed of the lumbar spine and left hip. The images are of good technical quality. Summary results are attached. FINDINGS: LEFT FEMUR, NECK: Current: BMD 0.902 g/cm2, Z-score 0.5, T-score -1.0, normal. Prior: BMD 0.896 g/cm2. Baseline: BMD 1.140 g/cm2. LEFT FEMUR, TOTAL: Current: BMD 0.885 g/cm2, Z-score 0.3, T-score -1.0, normal, 0.8% decrease from previous, 20.3% decrease from baseline (<5% change is not significant). Prior: BMD 0.892 g/cm2. Baseline: BMD 1.111 g/cm2. AP SPINE L1-L4: Current: BMD 1.040 g/cm2, Z-score 0.2, T-score -1.2, osteopenia, 1.3% increase from previous, 9.8% decrease from baseline (<5% change is not significant). Prior: BMD 1.027 g/cm2. Baseline: BMD 1.153 g/cm2. IDENTIFIED RISK FACTORS: Menopause, osteoporosis, low calcium intake, history of fracture (adult). HISTORY OF FRACTURE: Spine. MEDICATIONS: Calcium supplements or multivitamin, vitamin D. MM/XR DEXA axial skeleton IMPRESSION: 1. DIAGNOSIS: Osteopenia based on the lowest T-score value of -1.2 in the lumbar spine applying World Health Organization criteria. 2. 10-YEAR FRACTURE RISK PREDICTION, FRAX: Major osteoporotic fracture (clinical spine, forearm, hip or shoulder) 14.1%. Hip fracture 1.4%. 3. Treatment Recommendations: NOF guidelines recommend consideration for treatment in postmenopausal women and men age 50 and older presenting with the following: -A hip or vertebral (clinical or morphometric) fracture. -T-score less than or equal to -2.5 at the femoral neck or spine after appropriate evaluation to exclude secondary causes. -Low bone mass at the hip or spine and a 10-year fracture probability by FRAX of greater than or equal to 3% for hip fracture or greater than or equal to 20% for major osteoporotic fracture based on the [place] adapted WHO algorithm. 4. Other Recommendations: All treatment decisions require clinical judgment and consideration of individual patient factors, including patient preferences, comorbidities, previous drug use, risk factors not captured in the FRAX model (e.g. frailty, falls, vitamin D deficiency, increased bone turnover, interval significant decline in bone density) and possible under or overestimation of fracture risk by FRAX. Additional medical evaluation for secondary cause of low bone mineral density may be appropriate. FUTURE SCAN RECOMMENDATION: People with diagnosed cases of osteoporosis or at high risk for fracture should have regular bone mineral density tests. For patients eligible for Medicare, routine testing is allowed once every 2 years. The testing frequency can be increased to one year for patients who have rapidly progressing disease, those who are receiving or discontinuing medical therapy to restore bone mass, or have additional risk factors. Electronically signed by: Caesar Merino MD 01/27/2024 12:32 PM ELVER IBARRA
== END 2024-01-27 08:56 | disposition home or self-care (01) ==
LOC: HO.MAMMO 08:55
PROVIDERS: PCP Nurse Practitioner Family; Visit Provider Nurse Practitioner Family
DX: Z12.31 Encounter for screening mammogram for malignant neoplasm of breast (principal); Z13.820 Encounter for screening for osteoporosis; M85.80 Other specified disorders of bone density and structure, unspecified site; Z78.0 Asymptomatic menopausal state
CPT/HCPCS: 77063; 77067; 77080

== ENCOUNTER → 2024-01-27 09:00 | Outpatient (BNV) | payer MEDICARE, SELFPAY | PROVIDERS: PCP Nurse Practitioner Family; Visit Provider Internal Medicine | DX: Z12.31 Encounter for screening mammogram for malignant neoplasm of breast (principal) | CPT/HCPCS: 77063; 77067 ==

== ENCOUNTER 2024-02-07 07:54 | Outpatient (AMB) | payer MEDICARE, SELFPAY ==
[2024-02-07 08:00] VITALS: BP 122/70; PULSE 72; O2SAT 98; BMI 28.0
--- NOTE | 2024-02-07 08:00 | A.OFFPC_ITS ---
Vital Signs 02/07/24 08:00 Height 5 ft 5 in Weight 168 lb BMI 28.0 BP 122/70 Blood Pressure Location Lt brachial Position Sitting Pulse 72 Pulse Source Pulse Oximeter Pulse Oximetry (%) 98 Intake Visit Reasons: 6 mon follow up Intake Note: pt is here for 6 month follow up Manager Of Purchasing Required: No Accompanied by: Self / Same As Patient Allergies prednisone [PREDNISONE] Allergy (Severe, Verified 02/07/24 08:00) FLUSHING/DIFFICULTY SWALLOWING, anaphalactic reaction codeine [CODEINE] Allergy (Intermediate, Verified 02/07/24 08:00) N/V Tobacco use date assessed: 05/17/23 Fall risk assessment: No Falls in past year Last assessed Fall Risk: 02/07/24 Dental Screening Dental Screen Date: 05/17/23 HPI 6 mon follow up HPI Details History of Present Illness The patient is a 68-year-old female presenting with chronic lower back pain. The condition began after an episode on the dance floor and has been persistent. An MRI in the fall of 2022 revealed multilevel degenerative changes in the lumbar spine compared to previous imaging. There is no evidence of nerve root impingement, but there is a chronic L1 compression fracture that showed an interval increase upon x-ray evaluation in January of the preceding year. Gabapentin provides some relief, but the pain persists and is exacerbated by prolonged standing. The patient saw a neurosurgeon last year, confirming that she was not a surgical candidate. There is a potential inflammation of the SI joints, but imaging for this has not been obtained. The patient also experiences intermittent radiculopathy in her right lower extremity. Other relevant medical issues include chronic abdominal pain, which has raised concerns about a parasitic infection. Past medical efforts have not clearly identified the cause or provided significant relief. Review of Systems - Musculoskeletal: Reports worsening of back pain when standing for long periods. - Neurological: Reports intermittent rad iculopathy in the right lower extremity. - Cardiovascular: Denies chest pain and shortness of breath. PE: A+Ox3 cardiac: s1 s2 resp: clear bilat back: neg straight leg tests, able to ambulate on heels and toes without difficulty. + patellar reflexes Plan - Repeat lumbar spine x-ray to evaluate chronic L1 compression fracture, ? worsening conditions. - Obtain SI joint imaging to assess the potential inflammation. - Continue with Gabapentin for pain huang gement. - Monitor for any progression of right l ower extremity radiculopathy. - Consider evaluation for possible gastr ointestinal parasitic infection, though further diagnostics were not detailed in the conversation. Patient was informed and verbally consented to the use of an ambient scribe for clinic note documentation during this visit. Discussion Notes I discussed with the patient the implications of her current lumbar spine condition and the chronic L1 compression fracture. The need for repeat x-rays was emphasized to assess any interval changes. We talked about the potential inflammation in the SI joints and the necessity of imaging to clarify this issue. The benefits of continuing Gabapentin for managing chronic back pain were explained, along with the plan to monitor the radiculopathy in her right lower extremity. Concerns regarding her abdominal pain and the possibility of a parasitic infection were acknowledged, and although no specific treatment was agreed upon, I noted our intention to explore this further. Follow-up will focus on the results of the imaging and any symptomatic changes. Patient Instructions - Schedule a lumbar spine x-ray and SI j oint imaging as soon as possible. - Continue taking Gabapentin as prescrib ed. - Monitor any changes or progression of symptoms, especially back pain or radiculopathy, and report them. - Note any gastrointestinal symptoms and seek further consultation if they wors en or persist. [facility] Medical History COPD (chronic obstructive pulmonary disease) Osteopenia Asthma Surgical History S/P shoulder surgery History of hysteroscopy History of arthroscopy of both knees H/O colonoscopy Family History Father No problems noted. Mother Leukemia Breast cancer Social History Household Members: Spouse Housing: Condominium Alcohol intake: current Alcohol intake frequency: a few times a week Patient Tobacco Use Status: Former Tobacco user Years Smoked: 40 years e-Cigarette/Vaping Use: Never Used Second Hand Smoke Exposure: No service: No Current occupational status: employed Current occupation: [employer] Current occupational exposures/hazards: No Cognitive needs: No Hearing needs: No Vision needs: No Questionnaire PHQ-9 Over the last 2 weeks, how often have you been bothered by any of the following problems? 1. Little interest or pleasure in doing things: not at all 2. Feeling down, depressed, or hopeless: not at all 3. Trouble falling or staying asleep, or sleeping too much: not at all 4. Feeling tired or having little energy: not at all 5. Poor appetite or overeating: not at all 6. Feeling bad about yourself - or that you are a failure or have let yourself or your family down: not at all 7. Trouble concentrating on things, such as reading the newspaper or watching television: not at all 8. Moving or speaking so slowly that other people could have noticed. Or the opposite - being so fidgety or restless that you have been moving around a lot more than usual: not at all 9. Thoughts that you would be better off or of hurting yourself in some way: not at all Total score: 0 Depression Screening Interpretation: Negative Depression Screening Done: Yes 43336 - PHQ-9 Billing: Yes Source: Developed by Drs. Jose Alberto Shepherd, Roxanne Hermosillo, Louie Yepez and colleagues, with an educational sarah from [facility]. Thrive Questionnaire Date Thrive assessed: 02/07/24 I am a: Patient What is your living situation today?: I have a steady place to live Within the past 12 months, did the food you bought not last and you didn't have the money to get more?: Never true Within the past 12 months, did you worry whether your food would run out before you got money to buy more?: Never true Do you have trouble paying for medicines?: No Do you have trouble getting transportation to medical appointments?: No Do you have trouble paying your heating and electricity bill?: No Do you have trouble taking care of your child, family member or friend?: No Do you have trouble with day-to-day activities such as bathing, preparing meals, shopping, managing finances, etc.?: No Are you currently unemployed and looking for a job?: No Are you interested in more education?: No Please select the resources that you would like help with: None Currently or been in a relationship where the following occur: No concerns reported THRIVE Score: 0 AUDIT C Alcohol Use Questionnaire (AUDIT-C) 1. How often do you have a drink containing alcohol?: 2-3 times a week 2. How many drinks containing alcohol do you have on a typical day when you are drinking?: 1 or 2 3. How often do you have six or more drinks on one occasion?: Never Total Score: 3 Score Reviewed/Action Taken: Yes LUIS-7 AMB Questionnaire LUIS-7 Date LUIS - 7 assessed: 02/07/24 Feeling nervous, anxious, or on edge: 0 = Not at all Not being able to stop or control worryin = Not at all Worrying too much about different things: 0 = Not at all Trouble relaxin = Not at all Being so restless that it is hard to sit still: 0 = Not at all Becoming easily annoyed or irritable: 0 = Not at all Feeling afraid as if something awful might happen: 0 = Not at all Total LUIS-7 score (0-4 normal; 5-9 mild; 10-14 moderate; 15-21 severe): 0 Source: Developed by Drs. Jose Alberto Shepherd, Roxanne Hermosillo, Louie Yepez and colleagues, with an educational sarah from [facility]. LUIS-7 Assessment Billing LUIS-7 Assessment Tool: LUIS-7 Assessment 03372 Physical exam (Primary Care) Vital Signs: Last Vital Signs Pulse 72 02/07/24 08:00 BP 122/70 02/07/24 08:00 Pulse Ox 98 02/07/24 08:00 BMI result Body Mass Index 28.0 Tobacco/Smoking Status: Tobacco use Status Tobacco use date assessed 05/17/23 02/07/24 08:03 Patient Tobacco Use Status Former Tobacco user 02/07/24 08:03 e-Cigarette/Vaping Use Never Used 02/07/24 08:03 PHQ-9: PHQ-9 Score PHQ-9: Total score 0 02/07/24 08:03 Depression Screening Interpretation: Negative Thrive Assessment: Date of Thrive Assessment Date Thrive assessed 02/07/24 02/07/24 08:03 Currently or been in a relationship where the following occur: No concerns reported Coding Level of Care Code Est Pt Level 3 (84766) Diagnoses Chronic radicular pain of lower back M54.16; G89.29 Dyslipidemia E78.5 Somatic dysfunction of left sacroiliac joint M99.04 Additional Codes LUIS-7 Assessment Billing - LUIS-7 Assessment Tool: LUIS-7 Assessment 07804 ([id number]) PHQ-9 - 81457 - PHQ-9 Billing: Yes ([id number]) Assessment & Plan Assessment & Plan (1) Chronic radicular pain of lower back: Code(s): M54.16 - Radiculopathy, lumbar region; G89.29 - Other chronic pain Category: Medical (2) Dyslipidemia: Code(s): E78.5 - Hyperlipidemia, unspecified Category: Medical (3) Somatic dysfunction of left sacroiliac joint: Code(s): M99.04 - Segmental and somatic dysfunction of sacral region Category: Medical Plan * Orders: Orders Complete Blood Count Auto Diff Today E78.5 - Hyperlipidemia, unspecified Comprehensive [place]. Panel Fast Today E78.5 - Hyperlipidemia, unspecified UA CC w/rflx Micro + Cult Today E78.5 - Hyperlipidemia, unspecified Lipid Panel Today E78.5 - Hyperlipidemia, unspecified XR sacroiliac joint 1-2V Today M99.04 - Segmental and somatic dysfunction of sacral region XR lumbar spine 2-3V Today G89.29 - Other chronic pain, M54.16 - Radiculopathy, lumbar region TSH reflex Free T4 Today E78.5 - Hyperlipidemia, unspecified Medications: Refilled gabapentin 300 mg PO BEDTIME 90 caps 0RF 90 days
== END 2024-02-07 12:08 | disposition home or self-care (01) ==
PROVIDERS: PCP Nurse Practitioner Family; Visit Provider Nurse Practitioner Family
DX: M54.16 Radiculopathy, lumbar region (principal); G89.29 Other chronic pain; E78.5 Hyperlipidemia, unspecified; M99.04 Segmental and somatic dysfunction of sacral region

== ENCOUNTER → 2024-02-07 07:54 | Outpatient (BNVA) | payer MEDICARE, SELFPAY | PROVIDERS: PCP Nurse Practitioner Family; Visit Provider Nurse Practitioner Family | DX: G89.29 Other chronic pain (principal); M54.16 Radiculopathy, lumbar region; E78.5 Hyperlipidemia, unspecified; M99.04 Segmental and somatic dysfunction of sacral region | CPT/HCPCS: 96127; 99212 ==

== ENCOUNTER 2024-03-20 09:11 | Outpatient (REF) | payer MEDICARE, SELFPAY ==
--- NOTE | ~2024-03-20 | XR_ITS ---
EXAMINATION: XR SACROILIAC JOINTS CLINICAL INFORMATION: M99.04 - Segmental and somatic dysfunction of sacral region COMPARISON: None available. TECHNIQUE: 3 views of the sacroiliac joints FINDINGS: No acute cortical disruption. No lytic or blastic lesions. Calcifications overlapping the right hemisacrum. Spondylosis at L4-L5 S1. XR/XR sacroiliac joint 1-2V IMPRESSION: No acute fracture. No gross sacroiliitis. Probable calcified uterine fibroid. Electronically signed by: Sujit Jose MD 03/20/2024 10:46 AM EST
--- NOTE | ~2024-03-20 | XR_ITS ---
EXAMINATION: XR LUMBOSACRAL SPINE CLINICAL INFORMATION: M54.16 - Radiculopathy, lumbar region COMPARISON: January 29, 2023. TECHNIQUE: Three views of the lumbosacral spine. FINDINGS: Superior endplate compression deformity representing 40% volume loss at L1, old. Multilevel marginal osteophyte formation and endplate sclerosis. No gross malalignment. No lytic or blastic lesions. Calcification overlapping the right hemisacrum. Vascular calcifications, likely aorta. Osteopenia versus osteoporosis. XR/XR lumbar spine 2-3V IMPRESSION: Old compression deformity, L1. Multilevel lumbar spondylosis. Atherosclerosis disease. Probable calcified uterine fibroid. Electronically signed by: Sujit Jose MD 03/20/2024 10:45 AM [facility]
--- OUTSIDE RECORDS SUMMARY | 2024-03-20 09:30 | XMS_ITS | Clinical Summary ---
Author Organization [facility] Address [address] [place] [address] Care Team Providers Care Handle Attacher Name Role Phone Eli Mclean MD Primary Care Provider [phone] Allergies Active Allergy Reactions Criticality Noted Date Comments Prednisone 07/25/2019 Medications Medication Sig Dispensed Refills Start Date End Date Status gabapentin (NEURONTIN) 300 MG capsule 0 07/16/2019 Active omeprazole (PriLOSEC) 40 MG capsule 0 06/25/2019 Active meclizine (ANTIVERT) 25 MG tablet TAKE 1 TABLET BY MOUTH DAILY NEEDED FOR DIZZINESS 0 03/18/2020 Active Acetaminophen Extra Strength 500 MG tablet Take 1,000 mg by mouth 3 (three) times a day. 0 06/05/2020 Active phentermine 30 MG capsule TAKE 1 CAPSULE BY MOUTH DAILY 2 HOURS AFTER BREAKFAST 0 07/20/2020 Active LORazepam (Ativan) 1 MG tablet Take one tab 2 hours before your MRI; Take second tab 30 minutes before your MRI 2 tablet 0 11/19/2020 Active azithromycin (ZITHROMAX) 250 MG tablet TAKE 2 TABLETS BY MOUTH ON DAY 1 THEN TAKE 1 TABLET BY MOUTH DAILY FOR 4 DAYS 0 01/15/2021 Active tiZANidine (ZANAFLEX) 4 MG tablet Take 4 mg by mouth every night at bedtime as needed. for muscle spasm 0 03/18/2021 Active oseltamivir (TAMIFLU) 75 MG capsule TAKE 1 CAPSULE BY MOUTH TWICE DAILY FOR 5 DAYS 0 02/17/2021 Active cyclobenzaprine (FLEXERIL) 10 MG tablet TAKE 1 TABLET(10 MG) BY MOUTH EVERY NIGHT AT BEDTIME NEEDED FOR MUSCLE SPASMS 30 tablet 0 07/21/2021 Active amoxicillin (AMOXIL) 500 MG tablet TAKE 4 TABLETS BY MOUTH 1 HOUR BEFORE DENTAL APPOINTMENT 20 tablet 3 01/26/2022 Active Active Problems Problem Noted Date Diagnosed Date Fall 06/09/2021 Closed wedge compression fracture of first lumba r vertebra 06/02/2021 Lumbosacral pain 06/02/2021 Arthritis of knee, left 07/25/2019 Family History Medical History Relation Name Comments Cancer Mother Relation Name Status Comments Mother Social History Tobacco Use Types Packs/Day Years Used Date Smoking Tobacco: Former Smokeless Tobacco: Never Alcohol Use Standard Drinks/Week Comments Yes 0 (1 standard drink = 0.6 oz pur e alcohol) Sex and Gender Information Value Date Recorded Sex Assigned at Not on file Gender Identity Not on file Sexual Orientation Not on file Job Start Date Occupation Industry Not on file Not on file Not on file Last Filed Vital Signs Vital Sign Reading Time Taken Comments Blood Pressure - - Pulse - - Temperature - - Respiratory Rate - - Oxygen Saturation - - Inhaled Oxygen Concentration - - Weight 70.8 kg (156 lb) 07/28/2021 11:19 AM EDT Height 165.1 cm (5' 5 ) 07/28/2021 11:19 AM EDT Body Mass Index 25.96 07/28/2021 11:19 AM EDT Plan of Treatment Health Maintenance Due Date Last Done Comments Hepatitis C Screening 1955 COVID-19 Vaccine (#1) 1953 Depression Screening 1965 Preventative Health Evaluation 1971 DTap / Tdap / Td (1 - Tdap) 1972 Colon Cancer Screening (Colonoscopy) 1998 Breast Cancer Screening (Mammogram) 2003 Shingrix-Zoster Vaccine (1 of 2) 2003 Fall Risk Assessment 2018 Osteoporosis Screening (DEXA Scan) 2018 Pneumococcal Vaccine (1 of 1 - PCV) 2018 Influenza Vaccine (#1) 2023 RSV Adult > 60+ Yrs or Pregn ant (1 - 1-dose 75+ series) 2028 Hepatitis B Vaccines Aged Out No long er eligible based on patient's age to complete this topic RSV Ped < 20 months Aged Out No longe r eligible based on patient's age to complete this topic Care Teams Handle Attacher Relationship Specialty Start Date End Date Eli Mclean MD [address] [place] [id number] PCP - General Internal Medicine 07/14/19
[2024-03-20 10:16] LABS: MANUAL DIFF FLAG NO
[2024-03-20 10:26] LABS: Appearance Urine Clear; Color Urine Yellow; Glucose Urine UA Negative (Negative); Leukocyte Esterase Urine Moderate (2+) (Negative); Nitrite Urine Negative (Negative); UMIC TRIGGER UACC YES; Urine Blood Negative (Negative); Urine Ketones Negative (Negative); Urine Protein Negative (Neg-Trace)
[2024-03-20 10:30] LABS: Bacteria Urine None Seen (None Seen); Hyaline Casts Urine 0-2 /LPF (0-2); RBC Urine 0-2 /HPF (0-2); UACC Culture Trigger YES
[2024-03-20 10:33] LABS: Basophils Percent Auto 0.7 % (0-2); Eosinophils Absolute Auto 0.1 X10*3/uL (0.0-0.4); Eosinophils Percent Auto 2.5 % (0-4); Hematocrit 38.7 % (37.0-47.0); Hemoglobin 13.3 g/dl (12.0-16.0); Imm Gran Abs Auto 0.02 X10*3/uL (0.00-0.03); Imm Gran Pct Auto 0.5 % (0.0-0.4); Lymphocytes Absolute Auto 1.5 X10*3/uL (1.2-4.9); Mean Corpuscular HGB Conc 34.4 g/dl (31.0-35.0); Mean Corpuscular Hemoglobin 31.7 pg (27.0-33.0); Mean Corpuscular Volume 92.4 fL (80.0-98.0); Mean Platelet Volume 12.1 fL (9.4-12.3); Monocytes Absolute Auto 0.2 X10*3/uL (0.1-1.2); Monocytes Percent Auto 5.3 % (2-11); Neutrophils Absolute Auto 2.4 x10*3/uL (2.0-8.3); Platelet Count 184 X10*3/uL (160-400); Red Blood Count 4.19 X10*6/uL (4.20-5.50); Red Cell Distribution Width 12.5 % (11.0-16.0); White Blood Count 4.3 X10*3/uL (4.8-10.8)
[2024-03-20 12:48] LABS: Alanine Aminotransferase 19 U/L (0-31); Alkaline Phosphatase 59 U/L (39-117); Anion Gap 9 (12-20); Aspartate Amino Transferase 18 U/L (5-31); Bilirubin Total 0.5 mg/dL (0.0-1.0); Blood Urea Nitrogen 15 mg/dL (9-16); Calcium 8.8 mg/dL (8.4-10.2); Carbon Dioxide 27 mmol/L (22-29); Chloride 110 mmol/L (96-108); Cholesterol 208 mg/dL (<200); Estimated Glomerular Filt Rate > 60; Glucose Fasting 86 mg/dL (60-99); HDL Cholesterol 61 mg/dL (>40); LDL Cholesterol Calculated 132 mg/dL (<100); Sodium 142 mmol/L (135-145); TSH reflex Free T4 2.53 uIU/mL (0.32-4.0); Total Protein 6.7 g/dL (6.5-8.0); Triglycerides 79 mg/dL (<150)
== END 2024-03-20 09:12 | disposition home or self-care (01) ==
LOC: HO.HMGCX 09:11
PROVIDERS: PCP Nurse Practitioner Family; Visit Provider Nurse Practitioner Family
DX: M54.16 Radiculopathy, lumbar region (principal); G89.29 Other chronic pain; M99.04 Segmental and somatic dysfunction of sacral region; E78.5 Hyperlipidemia, unspecified
CPT/HCPCS: 36415; 72100; 72200; 80053; 80061; 81001; 84443; 85025; 87086

== ENCOUNTER → 2024-03-20 09:18 | Outpatient (BNV) | payer MEDICARE, SELFPAY | PROVIDERS: PCP Nurse Practitioner Family; Visit Provider Radiology Diagnostic Radiology | DX: M99.04 Segmental and somatic dysfunction of sacral region (principal); M47.896 Other spondylosis, lumbar region | CPT/HCPCS: 72100; 72200 ==

== ENCOUNTER 2024-08-29 08:27 | Outpatient (AMB) | payer MEDICARE, SELFPAY ==
--- NOTE | 2024-08-29 08:27 | MHC.OFFWIV ---
Intake Vital Signs 08/29/24 08:28 Height 5 ft 5 in Weight 169 lb BMI 28.1 BP 128/76 Blood Pressure Location Rt brachial Position Sitting Pulse 85 Pulse Source Pulse Oximeter Temp 97.9 F Temp Source Oral Pulse Oximetry (%) 99 Oxygen Delivery Method Room Air Intake Visit Reasons: EP Ear pain Intake Note: here for LT ear pain radiating down to jaw for about 3-4 weeks Patient Tobacco Use Status: Former Tobacco user Allergies prednisone (PREDNISONE) Allergy (Severe, Verified 08/29/24 08:35) FLUSHING/DIFFICULTY SWALLOWING, anaphalactic reaction codeine (CODEINE) Allergy (Intermediate, Verified 08/29/24 08:35) Nausea and Vomiting Medication List - Last Reconciled 08/29/24 by Saige Hinojosa MD albuterol sulfate 90 mcg/actuation (ProAir HFA) 1 inh inhalation QID PRN 30 days biotin 2,500 mcg PO DAILY cyclobenzaprine 10 mg PO BEDTIME PRN gabapentin 300 mg PO BEDTIME 90 days multivitamin (Daily Multi-Vitamin tablet) 1 tab PO DAILY omeprazole 40 mg PO DAILY tretinoin 0.025% (Retin-A) 1 appl topical BEDTIME Do you need a note to return to daycare/school/sports/work: No HPI EP Ear pain HPI Details History - The patient is a 69-year-old female presenting with a bothersome sensation in her left ear. - The issue started approximately one month ago, occurring intermittently. - The patient describes the sensation as bothersome but not painful, often extending to her neck and jaw. - The sensation occasionally wakes her from sleep. - She denies having any difficulty with hearing but is concerned about the potential for ear infection due to fluid-like sensations. - No associated nasal congestion, cough, or sore throat reported. - She experiences a lack of pain when the ear is physically manipulated. Medications: - Zyrtec, taken daily for allergies. Social History: - The patient denies using any specific methods for ear cleaning previously, although she has used Q-tips. Problem List - Impacted earwax, left ear Patient Instructions - performed earwax removal through professional flushing. - take the antibiotic as prescribed - if symptoms do not resolve explore possibility of teeth grinding and temporomandibular joint dysfunction with your PCP Review of Systems. - Throat: Denies sore throat. - General: No fever no chills - Neurological: No headaches no dizziness - Ear nose throat: No sore throat no hearing difficulty - Cardiovascular: No syncope, no chest pain, no palpitations Physical Exam General: No acute distress HEENT: Left ear with wax buildup, unable to visualize past the wax, no pain with tragus pressure or ear pull, once the ear is cleaned patient was reexamined erythema of tympanic membrane noted Neck: Supple Respiratory system: Able to talk in full sentences Gastrointestinal: No pain Extremities: No new findings AREA OPERATIONS MANAGER: Alert awake oriented x3 Skin: Normal turgor PFSH Medical History COPD (chronic obstructive pulmonary disease) Osteopenia Asthma Surgical History S/P shoulder surgery History of hysteroscopy History of arthroscopy of both knees H/O colonoscopy Family History Father No problems noted. Mother Leukemia Breast cancer Social History Household Members: [facility] Alcohol intake: current Alcohol intake frequency: a few times a week Patient Tobacco Use Status: Former Tobacco user Years Smoked: 40 years e-Cigarette/Vaping Use: Never Used Second Hand Smoke Exposure: No service: No Current occupational status: employed Current occupation: real estate Current occupational exposures/hazards: No Cognitive needs: No Hearing needs: No Vision needs: No Physical Exam Vital Signs: Last Vital Signs Temp 97.9 F 08/29/24 08:28 Pulse 85 08/29/24 08:28 BP 128/76 08/29/24 08:28 Pulse Ox 99 08/29/24 08:28 Oxygen Delivery Method Room Air 08/29/24 08:28 BMI result Body Mass Index 28.1 Assessment & Plan Assessment & Plan (1) Discomfort of left ear: Code(s): H92.02 - Otalgia, left ear (2) Excessive wax in left ear: Code(s): H61.22 - Impacted cerumen, left ear Plan History - The patient is a 69-year-old female presenting with a bothersome sensation in her left ear. - The issue started approximately one month ago, occurring intermittently. - The patient describes the sensation as bothersome but not painful, often extending to her neck and jaw. - The sensation occasionally wakes her from sleep. - She denies having any difficulty with hearing but is concerned about the potential for ear infection due to fluid-like sensations. - No associated nasal congestion, cough, or sore throat reported. - She experiences a lack of pain when the ear is physically manipulated. Medications: - Zyrtec, taken daily for allergies. Social History: - The patient denies using any specific methods for ear cleaning previously, although she has used Q-tips. Problem List - Impacted earwax, left ear Patient Instructions - performed earwax removal through professional flushing. - take the antibiotic as prescribed - if symptoms do not resolve explore possibility of teeth grinding and temporomandibular joint dysfunction with your PCP Medications: New azithromycin Take 2 tablets today then 1 daily 250 mg PO ONCE 6 tabs 0RF 5 days Saige Hinojosa MD J06.9 - Acute upper respiratory infection, unspecified Changed From cyclobenzaprine 10 mg PO BEDTIME 30 days 30 tabs 2RF To cyclobenzaprine 10 mg PO BEDTIME PRN ESTHELA Roe-ALEJO Coding Level of Care Code Est Pt Level 3 (57264) Diagnoses Discomfort of left ear H92.02 Excessive wax in left ear H61.22
[2024-08-29 08:28] VITALS: BP 128/76; PULSE 85; TEMP 36.6; O2SAT 99; BMI 28.1
--- OUTSIDE RECORDS SUMMARY | 2024-08-29 08:34 | XMS_ITS ---
Author Name [facility] Organization Unknown Encounters Encounter Type Encounter Reason Primary Diagnosis Location Date Ambulatory [facility] 08/28/2022 Ambulatory [facility] 07[facility]24/2022 Ambulatory [facility] 06/19/2022
--- OUTSIDE RECORDS SUMMARY | 2024-08-29 08:35 | XMS_ITS | Patient Health Record ---
[facility] Address [address] [place] [address] Care Team Providers Care Test Worker Name Role Phone Vinay BLANCO, Eli Arriola Primary Care Provider Un available Nikos Velásquez Unavailable [phone] Allergies Allergen (clinical drug ingredient) Drug/Non Drug Allergy documented on EMR Reaction Allergy Type Onset Date Status PredniSONE SOB Drug Allergy Active Reason For Referral No Information Medications Medication SIG (Take, Route, Frequency, Duration) Notes Start Date End Date Status Gabapentin Active Aspirin Active Loratadine Active PriLOSEC Active Vitamin D Active Social History Tobacco Use: Social History Observation Description Date Details (start date - stop date) Former Smoker NA - NA Tobacco Use/Smoking Question Answer Notes Are you a: former smoker Additional Findings: Tobacco Non-User Current no n-smoker Alcohol Screen Question Answer Notes Did you have a drink containing alcohol in the p ast year? Yes Points 0 Interpretation Negative Tobacco use other than smoking: Question Answer Notes Are you an other tobacco user? No Problems Problem Type SNOMED Code ICD Code Onset Dates Problem Status W/U Status Risk Notes Problem Acquired hallux valgus (42415094) Hallux valgus (acquired), left foot (M20.12) Active confirmed Problem Localized, primary osteoarthritis of the ankle and/or foot (012935274) Primary osteoarthrit is, right ankle and foot (M19.071) Active confirmed Problem Localized, primary osteoarthritis of the ankle and/or foot (568954659) Primary osteoarthrit is, left ankle and foot (M19.072) Active confirmed Problem Acquired hallux valgus (96441759) Hallux valgus (acquired), right foot (M20.11) Active confirmed Problem Arriola's neuroma of left foot (567109180065507) 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 Plan Of Treatment Pending Test Test Name Order Date X ray : Foot, left 3V 05/23/2018 X ray : Foot, right 3V 05/23/2018 Insurance Providers Payer Name Payer Address Payer Phone Subscriber Number Group Number Insured Name Patient Relationship to Insured Coverage Start Date Coverage End Date [employer] Medicare [id number] [address] [address] [place] [address] [id number] Juliana Yo Self - patient is the insured Medical (General) History Medical History History ICD Code Arthritis asthma Knee Pain Cataracts Macular degeneration Osteoporosis Measles Mumps Surgical History Surgery Date(Month/Year) right and left knee hemorrhoid carpal tunnel
--- OUTSIDE RECORDS SUMMARY | 2024-08-29 08:35 | XMS_ITS | Clinical Summary ---
Author Organization [facility] [address] [facility] Address [address] [place] [address] Phone Care Team Providers Care Water Resource Specialist Name Role Phone Eli Mclean MD Primary Care Provider [phone] Allergies Active Allergy Reactions Criticality Noted Date Comments Prednisone Other 07/25/2019 Other Reaction(s): Other (See Comments) Throat closes Throat closes Medications bisacodyL (DULCOLAX) 5 mg EC tablet Take 2 tablets by mouth right before beginning bowel prep. See instructions provided by the office 2 tablet 5 Active polyethylene glycol (Golytely) 236-22.74-6.74 -5.86 gram solution Take 4L by mouth once for one dose. May substitue any PEG. Starting at 6PM the night before your procedure drink 1 8oz glasses at your own pace until you complete half of the gallon. Finish 2nd half of the gallon 5 hours before your procedure. 4000 mL 5 Active Active Problems Problem Noted Date Diagnosed Date Gastroesophageal reflux disease without esophagi tis 05/13/2024 Hx of colonic polyps 05/13/2024 Medical History Medical History Date Comments Gastroesophageal reflux disease without esophagi tis 05/13/2024 Family History Medical History Relation Name Comments Other: Other Mother dry eyes Blindness Neg Hx Cataracts Neg Hx Glaucoma Neg Hx Macular degeneration Neg Hx Strabismus Neg Hx Relation Name Status Comments Mother Social History Tobacco Use Types Packs/Day Years Used Date Smoking Tobacco: Former Comments Unknown Sex and Gender Information Value Date Recorded Sex Assigned at Not on file Legal Sex Female 10:43 PM EST Gender Identity Not on file Sexual Orientation Not on file Obstetrics History Last Filed Vital Signs Vital Sign Reading Time Taken Comments Blood Pressure - - Pulse - - Temperature - - Respiratory Rate - - Oxygen Saturation - - Inhaled Oxygen Concentration - - Weight 76.2 kg (168 lb) 05/22/2024 8:53 AM EDT Height 170.2 cm (5' 7 ) 05/22/2024 8:53 AM EDT Body Mass Index 26.31 05/22/2024 8:53 AM EDT Plan of Treatment Health Maintenance Due Date Last Done Comments Breast Cancer Screening 1955 Zoster Vaccines (1 of 2) 2003 Pneumococcal Vaccine: 50+ Years (2 of 2 - PPSV23) 01/09/2021 01/10/2020 Depression Screening 01/23/2022 Falls Risk Assessment 01/23/2022 Hepatitis C Screening 01/23/2022 Medicare Annual Wellness Visit 01/23/2022 Osteoporosis Screening (Bone Density Screening) 01/23/2022 Social Influencers of Health Screening 01/23/2022 COVID-19 Vaccine ( season) 2024 12/06/2023, 11/26/2022, 12/12/2021, Additional history exists Influenza Vaccine (#1) 2024 , 12/12/2021, 12/11/2020, Additional history exists DTaP,Tdap,and Td Vaccines (2 - Td or Tdap) 02/01/2025 02/01/2015 RSV Immunization Adult Patients (1 - 1-dose 75+ series) 2028 Colorectal Cancer Screening: Colonoscopy 05/30/2034 05/30/2024, 10/13/2022 HIB Vaccines Aged Out No longer eligi ble based on patient's age to complete this topic HPV Vaccines Aged Out No longer eligi ble based on patient's age to complete this topic Hepatitis A Vaccines Aged Out No long er eligible based on patient's age to complete this topic Hepatitis B Vaccines Aged Out No long er eligible based on patient's age to complete this topic IPV Vaccines Aged Out No longer eligi ble based on patient's age to complete this topic MMR Vaccines Aged Out No longer eligi ble based on patient's age to complete this topic Meningococcal ACWY Vaccine Aged Out N o longer eligible based on patient's age to complete this topic Meningococcal B Vaccine Aged Out No l onger eligible based on patient's age to complete this topic RSV Immunization Patients Under 20 months Aged Out No longer eligible based on patient's age to complete this topic Varicella Vaccines Aged Out No longer eligible based on patient's age to complete this topic Procedures Procedure Name Priority Date/Time Associated Diagnosis Comments EXTERNAL COLONOSCOPY REPORT Routine 05/30/2024 12:25 PM EDT from Last 3 Months Results * External Colonoscopy Report (05/30/2024 12:25 PM EDT) Anatomical Region Laterality Modality Endoscopy us Historical Provider GI~PROCEDURE ORDERABLES F inal Result from Last 3 Months Insurance [employer] MEDICARE Member Subscriber Plan / Payer (Ef fective 2024-Present) Name:Juliana Curtis Relation to Subscriber:Self Name:Juliana Curtis Payer ID:[id number] (NAIC) Type:Not on file Address: [place] [phone] Care Teams Water Resource Specialist Relationship Specialty Start Date End Date Eli Mclean MD [address] [place] [address] PCP - General Internal Medicine 08/25/13
--- OUTSIDE RECORDS SUMMARY | 2024-08-29 08:35 | XMS_ITS | Clinical Summary ---
Author Organization [facility] Address [address] [place] [address] Care Team Providers Care Telephone Sales Representative Name Role Phone Eli Mclean MD Primary Care Provider [phone] Allergies Active Allergy Reactions Criticality Noted Date [...] 1 - PCV) 2018 Influenza Vaccine (#1) 2024 RSV Adult > 60+ Yrs or Pregn ant (1 - 1-dose 75+ series) 2028 Hepatitis B Vaccines Aged Out No long er eligible based on patient's age to complete this topic RSV Ped < 20 months Aged Out No longe r eligible based on patient's age to complete this topic Care Teams Telephone Sales Representative Relationship Specialty Start Date End Date Eli Mclean MD [address] [place] [phone] PCP - General Internal Medicine 07/14/19
== END 2024-08-29 09:17 | disposition home or self-care (01) ==
PROVIDERS: PCP Nurse Practitioner Family; Visit Provider Internal Medicine
DX: H92.02 Otalgia, left ear (principal); H61.22 Impacted cerumen, left ear

== ENCOUNTER → 2024-08-29 08:27 | Outpatient (BNVA) | payer MEDICARE, SELFPAY | PROVIDERS: PCP Nurse Practitioner Family; Visit Provider Internal Medicine | DX: H92.02 Otalgia, left ear (principal); H61.22 Impacted cerumen, left ear | CPT/HCPCS: 99212 ==

== ENCOUNTER 2024-09-13 09:08 | Outpatient (AMB) | payer MEDICARE, SELFPAY ==
[2024-09-13 09:29] VITALS: BP 128/88; PULSE 77; RESP 16; TEMP 36.7; O2SAT 100; BMI 28.1
--- NOTE | 2024-09-13 09:29 | A.OFFPC_ITS ---
Vital Signs 09/13/24 09:29 Height 5 ft 5 in Weight 169 lb BMI 28.1 BP 128/88 Blood Pressure Location Rt brachial Position Sitting Respiration 16 Pulse 77 Pulse Source Pulse Oximeter Temp 98.1 F Temp Source Oral Pulse Oximetry (%) 100 Oxygen Delivery Method Room Air Intake Visit Reasons: annual exam - see comments Show Design Supervisor Required: No Accompanied by: Self / Same As Patient Allergies prednisone (PREDNISONE) Allergy (Severe, Verified 09/13/24 10:07) FLUSHING/DIFFICULTY SWALLOWING, anaphalactic reaction codeine (CODEINE) Allergy (Intermediate, Verified 09/13/24 10:07) Nausea and Vomiting Medication List - Last Reconciled 09/13/24 by ESTHELA Roe- albuterol sulfate 90 mcg/actuation (ProAir HFA) 1 inh inhalation QID PRN 30 days biotin 2,500 mcg PO DAILY cyclobenzaprine 10 mg PO BEDTIME PRN gabapentin 300 mg PO BEDTIME 90 days multivitamin (Daily Multi-Vitamin tablet) 1 tab PO DAILY omeprazole 40 mg PO DAILY tretinoin 0.025% (Retin-A) 1 appl topical BEDTIME Tobacco use date assessed: 09/13/24 Fall risk assessment: No Falls in past year Last assessed Fall Risk: 09/13/24 Dental Screening Dental Screen Date: 09/13/24 Did you have a dental visit in the last 12 months?: Yes Did you have a dental problem in the last 6 months where you did not have access to dental care?: No Was dental information given to patient?: Patient has dentist HPI annual exam - see comments HPI Details History of Present Illness The patient is a 69-year-old female presenting for a physical exam. She reports experiencing intermittent chest discomfort, which she describes as not typical chest pain but more of a discomfort located in the upper chest, near the upper sternal region, just inferior to the thyroid. The discomfort is suggestive of gastroesophageal reflux disease (GERD) and does not radiate to the upper extremities or jaw. The patient has a history of smoking, having quit approximately 10 to 13 years ago. Due to this history, she is being referred to a lung screening program for low-dose CT scans to assess for any potential lung issues. Health Maintenance - Bone density screening is up to date - Mammogram is up to date - Referral to lung screening program for low-dose CT scans due to past smoking history Social History - Former smoker, quit approximately 10 t o 13 years ago Review of Systems - Cardiovascular: Denies chest pain, rep orts intermittent chest discomfort suggestive of GERD, denies radiating symptoms to upper extremities or jaw - Respiratory: Denies dyspnea - Gastrointestinal: Denies abdominal timbo n, blood in stool, constipation, diarrhea - Genitourinary: Denies urinary issues - Neurological: Denies dizziness - Psychiatric: Denies suicidal or homici lorne ideation Physical Exam General: Cooperative, healthy appearing, comfortable, no acute distress and well developed Orientation: Patient oriented x3 Limitations: No limitations Head: Normal to inspection Ears: Hearing grossly normal bilaterally Nose: Normal external nose present Face and sinus: Normal facial exam Eyes: Appearance normal, both eyes and all related structures Neck: Normal visual inspection and Yes full ROM Respiratory: Normal respiratory effort and able to speak in complete sentences. Clear to auscultation bilaterally Cardiovascular: Regular rate and rhythm. Normal S1 and S2 GI: Normal to inspection. Soft to palpation and nontender Skin: No rashes or lesions noted Neuro: Patient oriented x3 Extremities: Normal to inspection Results - Labs: Ordered, pending results - Imaging: Referral for low-dose CT scan for lung screening due to past smoking history Plan The patient will undergo an EKG to further evaluate the intermittent chest discomfort, which is suspected to be related to gastroesophageal reflux disease GERD). She is encouraged to complete fasting labs in the near future to assess her overall health status. Given her history of smoking, a referral to a lung screening program for low- dose CT scans has been made to monitor for any potential lung issues. Discussion Notes I discussed with the patient the likelihood that her chest discomfort is related to gastroesophageal reflux disease (GERD) and the importance of monitoring her symptoms. We also talked about the need for an EKG to rule out any cardiac issues and the importance of completing her fasting labs. Given her past smoking history, I explained the benefits of lung cancer screening with low-dose CT scans and obtained her consent for the referral. Patient Instructions - Schedule and complete fasting labs as soon as possible. - Attend the scheduled EKG to evaluate c hest discomfort. - Follow up with the lung screening prog sidney for low-dose CT scans. [facility] Medical History COPD (chronic obstructive pulmonary disease) Osteopenia Asthma Surgical History S/P shoulder surgery History of hysteroscopy History of arthroscopy of both knees H/O colonoscopy Family History Father No problems noted. Mother Leukemia Breast cancer Social History Household Members: Spouse Housing: [facility] Alcohol intake: current Alcohol intake frequency: a few times a week Patient Tobacco Use Status: Former Tobacco user Years Smoked: 40 years e-Cigarette/Vaping Use: Never Used Second Hand Smoke Exposure: No service: No Current occupational status: employed Current occupation: [employer] Current occupational exposures/hazards: No Cognitive needs: No Hearing needs: No Vision needs: No Questionnaire PHQ-9 Over the last 2 weeks, how often have you been bothered by any of the following problems? 1. Little interest or pleasure in doing things: not at all 2. Feeling down, depressed, or hopeless: not at all 3. Trouble falling or staying asleep, or sleeping too much: not at all 4. Feeling tired or having little energy: not at all 5. Poor appetite or overeating: not at all 6. Feeling bad about yourself - or that you are a failure or have let yourself or your family down: not at all 7. Trouble concentrating on things, such as reading the newspaper or watching television: not at all 8. Moving or speaking so slowly that other people could have noticed. Or the opposite - being so fidgety or restless that you have been moving around a lot more than usual: not at all 9. Thoughts that you would be better off or of hurting yourself in some way: not at all Total score: 0 Depression Screening Interpretation: Negative Depression Screening Done: Yes 11682 - PHQ-9 Billing: Yes Source: Developed by Drs. Jose Alberto Shepherd, Roxanne Hermosillo, Louie Yepez and colleagues, with an educational sarah from [employer]. Thrive Questionnaire Date Thrive assessed: 09/13/24 I am a: Patient What is your living situation today?: I have a steady place to live Within the past 12 months, did the food you bought not last and you didn't have the money to get more?: Never true Within the past 12 months, did you worry whether your food would run out before you got money to buy more?: Never true Do you have trouble paying for medicines?: No Do you have trouble getting transportation to medical appointments?: No Do you have trouble paying your heating and electricity bill?: No Do you have trouble taking care of your child, family member or friend?: No Do you have trouble with day-to-day activities such as bathing, preparing meals, shopping, managing finances, etc.?: No Are you currently unemployed and looking for a job?: No Are you interested in more education?: No Please select the resources that you would like help with: None Currently or been in a relationship where the following occur: No concerns reported THRIVE Score: 0 AUDIT C Alcohol Use Questionnaire (AUDIT-C) 1. How often do you have a drink containing alcohol?: 2-3 times a week 2. How many drinks containing alcohol do you have on a typical day when you are drinking?: 3 or 4 Total Score: 4 LUIS-7 AMB Questionnaire LUIS-7 Date LUIS - 7 assessed: 09/13/24 Feeling nervous, anxious, or on edge: 0 = Not at all Not being able to stop or control worryin = Not at all Worrying too much about different things: 0 = Not at all Trouble relaxin = Not at all Being so restless that it is hard to sit still: 0 = Not at all Becoming easily annoyed or irritable: 0 = Not at all Feeling afraid as if something awful might happen: 0 = Not at all Total LUIS-7 score (0-4 normal; 5-9 mild; 10-14 moderate; 15-21 severe): 0 Source: Developed by Drs. Jose Alberto Shepherd, Roxanne Hermosillo, Louie Yepez and colleagues, with an educational sarah from [employer]. LUIS-7 Assessment Billing LUIS-7 Assessment Tool: LUIS-7 Assessment 00447 Physical exam (Primary Care) Vital Signs: Last Vital Signs Temp 98.1 F 09/13/24 09:29 Pulse 77 09/13/24 09:29 Resp 16 09/13/24 09:29 BP 128/88 09/13/24 09:29 Pulse Ox 100 09/13/24 09:29 Oxygen Delivery Method Room Air 09/13/24 09:29 BMI result Body Mass Index 28.1 Tobacco/Smoking Status: Tobacco use Status Tobacco use date assessed 09/13/24 09/13/24 09:35 Patient Tobacco Use Status Former Tobacco user 09/13/24 09:35 e-Cigarette/Vaping Use Never Used 09/13/24 09:35 PHQ-9: PHQ-9 Score PHQ-9: Total score 0 09/13/24 09:35 Depression Screening Interpretation: Negative Thrive Assessment: Date of Thrive Assessment Date Thrive assessed 09/13/24 09/13/24 09:35 Currently or been in a relationship where the following occur: No concerns reported Coding Level of Care Code Est Pt Prev Care >65y(76075) Diagnoses Encounter for routine adult physical exam with abnormal findings Z. Vitamin D deficiency E55.9 COPD (chronic obstructive pulmonary disease) J44.9 Chest discomfort R07.89 Additional Codes LUIS-7 Assessment Billing - LUIS-7 Assessment Tool: LUIS-7 Assessment 88874 ([id number]) PHQ-9 - 23080 - PHQ-9 Billing: Yes ([id number]) Assessment & Plan Assessment & Plan (1) Encounter for routine adult physical exam with abnormal findings: Code(s): Z. - Encounter for general adult medical examination with abnormal findings Category: Medical (2) Vitamin D deficiency: Code(s): E55.9 - Vitamin D deficiency, unspecified Category: Medical (3) COPD (chronic obstructive pulmonary disease): Code(s): J44.9 - Chronic obstructive pulmonary disease, unspecified Category: Medical (4) Chest discomfort: Code(s): R07.89 - Other chest pain Category: Medical Plan . Orders: Orders Complete Blood Count Auto Diff Today Z00. - Encounter for general adult medical examination with abnormal findings UA CC w/rflx Micro + Cult Today Z00. - Encounter for general adult medical examination with abnormal findings Vitamin D 25-OH Total Today E55.9 - Vitamin D deficiency, unspecified Comprehensive [place]. Panel Fast Today Z00. - Encounter for general adult medical examination with abnormal findings TSH reflex Free T4 Today Z00. - Encounter for general adult medical examination with abnormal findings Lipid Panel Today Z00.01 - Encounter for general adult medical examination with abnormal findings AMB EKG-In Office Today R07.89 - Other chest pain Referrals Lung Cancer Screening Referral J44.9 - Chronic obstructive pulmonary disease, unspecified
--- OUTSIDE RECORDS SUMMARY | 2024-09-13 09:36 | XMS_ITS | Clinical Summary ---
Author Organization [facility] Address [address] [place] [address] Care Team Providers Care Sack Repairer Name Role Phone Eli Mclean MD Primary Care Provider [phone] Allergies Active Allergy Reactions Criticality Noted Date [...] age to complete this topic Care Teams Sack Repairer Relationship Specialty Start Date End Date Eli Mclean MD [address] [place] [id number] PCP - General Internal Medicine 07/14/19
--- OUTSIDE RECORDS SUMMARY | 2024-09-13 09:36 | XMS_ITS | Clinical Summary ---
Author Organization [facility] [address] [facility] Address [address] [place] [address] Phone Care Team Providers Care Gyroscopic Engineering Technician Name Role Phone Eli Mclean MD Primary Care Provider Allergies Active Allergy Reactions Criticality Noted Date [...] (2 of 2 - PPSV23) 01/09/2021 01/10/2020 Falls Risk Assessment 01/23/2022 Hepatitis C Screening 01/23/2022 Medicare Annual Wellness Visit 01/23/2022 Osteoporosis Screening (Bone Density Screening) 01/23/2022 Social Influencers of Health Screening 01/23/2022 Depression Screening 02/16/2024 COVID-19 Vaccine ( season) 2024 12/06/2023, 11/26/2022, [...] 12:25 PM EDT from Last 3 Months or Most Recently Relevant to Health Maintenance Results * External Colonoscopy Report (05/30/2024 12:25 PM EDT) Anatomical Region Laterality Modality Endoscopy us Historical Provider GI~PROCEDURE ORDERABLES F inal Result from Last 3 Months or Most Recently Relevant to Health Maintenance Insurance [employer] MEDICARE Care Teams Gyroscopic Engineering Technician Relationship Specialty Start Date End Date Eli Mclean MD [address] [place] [address] PCP - General Internal Medicine 08/25/13
--- OUTSIDE RECORDS SUMMARY | 2024-09-13 09:36 | XMS_ITS | Patient Health Record ---
[facility] Address [address] [place] [address] Care Team Providers Care Multimedia Services Coordinator Name Role Phone Vinay BLANCO, Eli Arriola Primary Care Provider Un available Nikos Velásquez Unavailable [phone] Allergies Allergen (clinical drug ingredient) Drug/Non Drug [...] Status Risk Notes Problem Acquired hallux valgus (05545264) Hallux valgus (acquired), left foot (M20.12) Active confirmed Problem Localized, primary osteoarthritis of the ankle and/or foot (742505280) Primary osteoarthrit is, right ankle and foot (M19.071) Active confirmed Problem Localized, primary osteoarthritis of the ankle and/or foot (752864655) Primary osteoarthrit is, left ankle and foot (M19.072) Active confirmed Problem Acquired hallux valgus (59407722) Hallux valgus (acquired), right foot (M20.11) Active confirmed Problem Arriola's neuroma of left foot (578590990169260) 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 Plan Of Treatment Pending Test Test Name Order Date X ray : Foot, left 3V 05/23/2018 X ray : Foot, right 3V 05/23/2018 Insurance Providers Payer Name Payer Address Payer Phone Subscriber Number Group Number Insured Name Patient Relationship to Insured Coverage Start Date Coverage End Date [employer] Medicare [id number] [address] [address] [place] [address] [id number] Juliana Yo Self - patient is the insured Medical (General) History Medical History History ICD Code Arthritis asthma Knee Pain Cataracts Macular degeneration Osteoporosis Measles Mumps Surgical History Surgery Date(Month/Year) right and left knee hemorrhoid carpal tunnel
== END 2024-09-13 11:01 | disposition home or self-care (01) ==
LOC: HO.HMCC 09:09
PROVIDERS: PCP Nurse Practitioner Family; Visit Provider Nurse Practitioner Family
DX: Z00.01 Encounter for general adult medical examination with abnormal findings (principal); E55.9 Vitamin D deficiency, unspecified; J44.9 Chronic obstructive pulmonary disease, unspecified; R07.89 Other chest pain

== ENCOUNTER → 2024-09-13 09:08 | Outpatient (BNVA) | payer MEDICARE, SELFPAY | PROVIDERS: PCP Nurse Practitioner Family; Visit Provider Nurse Practitioner Family | DX: Z00.01 Encounter for general adult medical examination with abnormal findings (principal); E55.9 Vitamin D deficiency, unspecified; J44.9 Chronic obstructive pulmonary disease, unspecified; R07.89 Other chest pain | CPT/HCPCS: 96127; 99397 ==

== ENCOUNTER 2024-10-08 13:03 | Emergency (ER) | payer MEDICARE, SELFPAY ==
--- NOTE | ~2024-10-08 | CT_ITS ---
CLINICAL HISTORY: trauma CT orbits and maxillofacial bones without contrast Comparison: None Findings: The globes are intact. No retrobulbar hematoma or post septal swelling is seen. No orbital fractures are present. No fractures of the frontal calvarium, corinne shi or cribriform plate. Soft tissue swelling right frontal scalp. No facial fractures are identified. The zygomatic arches, pterygoid plates and hard palate are intact. The nasal bones and bridge are intact. The nasal septum is midline. Maxillary spine intact. Both temporomandibular joints are congruent. The mandible are intact. The paranasal sinuses are clear. No air-fluid levels. The ostiomeatal units and the infundibulum are patent. Impression: 1. No intraorbital injury or orbital fractures. 2. No fractures of the facial bones identified. This document has been electronically signed by: Singh Stockton MD on 10/08/2024 14:13:47
--- NOTE | ~2024-10-08 | XR_ITS ---
CLINICAL HISTORY: trauma 4 views right hand Comparison: None Findings: Anterior dislocation 5th PIP joint. There is flexion deformity at this level. No periostitis or bony destruction. No acute fractures demonstrated. Mild widening of the scapholunate interval. Ulnar styloid perserved. Osteopenia. Soft tissue swelling 5th digit rings were not removed from the 4th and 5th digits Impression: 1. Anterior dislocation 5th PIP joint with flexion deformity at this level without evidence of fractures. 2. Mild widening of the scapholunate interval without evidence of collapse. Osteopenia. This document has been electronically signed by: Singh Stockton MD on 10/08/2024 13:42:26
--- NOTE | ~2024-10-08 | CT_ITS ---
CLINICAL HISTORY: trauma CT of the head without intravenous contrast Comparison: None Findings: The ventricles and sulci are prominent, consistent with generalized cerebral parenchymal volume loss. The ventricles are symmetric and the basilar cisterns are intact. Mild periventricular, deep and subcortical white matter hypodensities are nonspecific but statistically reflect the sequela of chronic small vessel ischemic change. No intracranial hemorrhage, extra-axial fluid collection, midline shift or mass-effect is evident. No evidence of acute large vessel or territorial ischemia. Brainstem and cerebellum unremarkable. Vascular calcifications indicate intracranial atherosclerosis. The imaged portion of the paranasal sinuses are clear. No mastoid effusions are demonstrated. The orbital contents are unremarkable. Right facial soft tissue swelling near the zygomatic arch. Calvarium is intact. Impression: 1. No CT evidence of acute intracranial abnormality. 2. Cerebral volume loss, intracranial atherosclerotic disease and mild sequela of chronic small vessel ischemic disease. This document has been electronically signed by: Singh Stockton MD on 10/08/2024 14:17:53
[2024-10-08 13:04] VITALS: BP 176/101; PULSE 92; RESP 18; TEMP 36.8; O2SAT 97; BMI 26.8
--- NOTE | 2024-10-08 13:05 | ED.GENADULT ---
HPI - General Adult General Chief complaint: Fall Stated complaint: finger injury and hit head Time Seen by Provider: 10/08/24 15:02 History of Present Illness ED Provider: Sagar DALTON narrative: The patient is a 69-year-old female who sustained a mechanical fall when her sandal got stuck on the floor of a longterm when she was visiting her father. She fell forward. She struck her face on the floor and injured her right hand. She also struck her right forearm and her knees. She had no loss of consciousness. Her primary injury was an injury to the right pinky finger. The finger was unusually bent at the PIP joint and she could not straighten it. She came to the hospital because of these injuries. Related Data Home Medications ?Medication ?Instructions ?Recorded ?Confirmed biotin 2,500 mcg capsule 2,500 mcg PO DAILY 05/18/22 09/13/24 multivitamin (Daily Multi-Vitamin 1 tab PO DAILY 05/18/22 09/13/24 tablet) cyclobenzaprine 10 mg tablet 10 mg PO BEDTIME PRN 08/29/24 09/13/24 Previous Rx's ?Medication ?Instructions ?Recorded albuterol sulfate 90 mcg/actuation 1 inh inhalation QID PRN shortness 11/23/19 aerosol inhaler (ProAir HFA) of breath or wheezing 30 days #18 grams tretinoin 0.025 % topical cream 1 appl topical BEDTIME #45 grams 04/20/24 (Retin-A) omeprazole 40 mg capsule,delayed 40 mg PO DAILY #90 caps 06/14/24 release gabapentin 300 mg capsule 300 mg PO BEDTIME 90 days #90 caps 08/03/24 Allergies Allergy/AdvReac Type Severity Reaction Status Date / Time prednisone (PREDNISONE) Allergy Severe FLUSHING/DIFFICULTY Verified 10/08/24 13:08 SWALLOWING, anaphalactic reaction codeine (CODEINE) Allergy Intermediate Nausea and Verified 10/08/24 13:08 Vomiting Review of Systems Review of Systems: Yes all other systems are reviewed and are negative PMFSH Past Medical History Medical History COPD (chronic obstructive pulmonary disease) Osteopenia Asthma Surgical History S/P shoulder surgery History of hysteroscopy History of arthroscopy of both knees H/O colonoscopy Family History Family History Father No problems noted. Mother Leukemia Breast cancer Social History Social History Household Members: [facility] Alcohol intake: current Alcohol intake frequency: a few times a week Patient Tobacco Use Status: Former Tobacco user Years Smoked: 40 years Smoked in Last 30 Days: No e-Cigarette/Vaping Use: Never Used Second Hand Smoke Exposure: No Use of substances other than those prescribed or required for medical reasons: No Advance Directives: Yes Advance Directives Information Provided: Yes Advance Directives on File: No Do you have a plan to hurt others: No Plan service: No Current occupational status: employed Current occupation: [employer] Current occupational exposures/hazards: No Cognitive needs: No Hearing needs: No Vision needs: No Physical Exam ED Vital Signs: Vital Signs - 24 hr 10/08/24 13:04 10/08/24 16:03 10/08/24 16:05 Temperature 98.2 F 98.0 F 98.0 F Pulse Rate 92 78 78 Respiratory Rate 18 16 16 Blood Pressure 176/101 H 141/64 H 141/64 H Pulse Oximetry 97 98 98 Oxygen Delivery Method Room Air Room Air Room Air BMI result Body Mass Index 26.8 Const Other: The patient is a 69-year-old female. She looks young for her age. She is awake and alert, pleasant and cooperative. Orientation/consciousness: patient oriented x3 HENMT Other: No obvious significant signs of trauma to her face. No raccoon eyes. No ryder sign. She has some generalized facial tenderness. Eyes Other: Pupils are round equal, conjunctivae are clear, extraocular movements intact Neck Other: No posterior C-spine tenderness. Good range of motion of the neck without pain. The C-spine was clinically clear. Resp Effort & Inspection: normal respiratory effort Auscultation: clear to auscultation bilaterally Cardio Rate: regular rate Rhythm: regular rhythm Heart sounds: S1 normal heart sound present and S2 normal heart sound present Skin Other: There is some soft tissue swelling to the right mid forearm. There is some mild ecchymotic skin discoloration and swelling to the right. Mild abrasions to the knees. The skin is intact. No full-thickness injuries. Neuro General: patient oriented x3, tone normal, moves all extremities, no focal motor deficits and CN's II-XI intact bilaterally Extrem Other: The patient has a deformity to the pinky finger of the right hand. The PIP joint is abnormally flexed and she is unable to straighten the PIP joint. She has a an area of redness and soft tissue swelling on the right mid forearm overlying the mid ulna. She has good range of motion of the wrist and the elbow. She has mild abrasions to both knees but uses than easily. Course Course Course Narrative: RME, this is a rapid medical exam performed by Eldon Cross please refer to primary provider for complete H&P- 69-year-old female presents for evaluation of a fall. The patient tripped over her sandal and injured her right hand mostly be right 5th finger with an obvious deformity. She also struck the right side of her face in the loss conscious, she is not anticoagulated. Plan for x-ray of the hand, CT scan of the brain and facial bones. There is no neck pain or C-spine tenderness. Medical Decision Making Medical Decision Making MDM Narrative: The patient is a 69-year-old female who comes to the emergency room after sustaining injuries when she tripped and fell. She fell forward onto her face and knees and also injured her right forearm and pinky finger. Her major injury seems to be an injury to the right pinky finger. She has a deformity of the finger and is unable to extend the finger. Otherwise she seems to have some facial contusions, a right forearm contusion, and mild knee abrasions. An x-ray of the right hand shows no fracture. A CT scan of the head and the face are negative. I explained to the patient that she has a dislocated PIP joint of the right pinky finger. I explained that reducing a dislocation like this is usually quite straight forward. Therefore after explaining the procedure to her I applied some gentle traction to the finger with reduction of the deformity. The finger was then straightened she was able to gently move the finger appropriately. I cindy-taped the pinky finger to the ring finger and applied a splint. The patient had had a very thin ring on the pinky finger which needed to be removed before any procedures were done. She consented to me cutting the ring. There was a ring on the ring finger which we were able to remove without cutting. The patient will be discharged with the right finger splinted with instructions to keep the hand elevated and follow up with Orthopedics. Discharge Plan Discharge Clinical Impression: Dislocation of proximal interphalangeal joint of right little finger, Fall, Head injury, Contusion of face, Contusion of forearm, right, Contusion of knee Patient Disposition: Home, Self-Care Instructions: Finger Dislocation (ED) Additional Instructions: You seemed to have dislocated first joint of your right pinky finger. The dislocation has been straightened and you have been splinted. Please keep your right hand elevated to the level of your heart or higher to reduce any significant swelling. This will also help minimize pain. You may use ibuprofen and acetaminophen as needed for discomfort. If for any reason the splint falls off you may simply reapply it with tape. Please contact the orthopedic office in the morning for a follow up appointment and further recommendations regarding this injury. Return to the emergency room if significantly worse. Prescriptions: No Action albuterol sulfate [ProAir HFA] 90 mcg/actuation HFA aerosol inhaler 1 inh inhalation QID PRN (Reason: shortness of breath or wheezing) 30 Days Qty: 18 4RF tretinoin [Retin-A] 0.025 % cream 1 appl topical BEDTIME Qty: 45 0RF omeprazole 40 mg capsule,delayed release(DR/EC) 40 mg PO DAILY Qty: 90 1RF gabapentin 300 mg capsule 300 mg PO BEDTIME 90 Days Qty: 90 0RF biotin 2,500 mcg capsule 2,500 mcg PO DAILY multivitamin [Daily Multi-Vitamin] Tablet 1 tab PO DAILY cyclobenzaprine 10 mg tablet 10 mg PO BEDTIME PRN Referrals: [facility] [Provider Group] Interventions: ED Discharge Assessment Last Done: 10/08/24 16:05 Discharge Date/Time: 10/08/24 16:05 Print Language: Urdu
--- OUTSIDE RECORDS SUMMARY | 2024-10-08 15:56 | XMS_ITS | Clinical Summary ---
Author Organization [facility] Address [address] [place] [address] Care Team Providers Care Virtual Office Assistant Name Role Phone Eli Mclean MD Primary Care Provider [phone] Allergies Active Allergy Reactions Criticality Noted Date [...] age to complete this topic Care Teams Virtual Office Assistant Relationship Specialty Start Date End Date Eli Mclean MD [address] [place] [id number] PCP - General Internal Medicine 07/14/19
--- OUTSIDE RECORDS SUMMARY | 2024-10-08 15:56 | XMS_ITS | Patient Health Record ---
[facility] Address [address] [place] [address] Care Team Providers Care Business Continuity Planner Name Role Phone Vinay BLANCO, Eli Arriola Primary Care Provider Un available Nikos Velásquez Unavailable [phone] Allergies Allergen (clinical drug ingredient) Drug/Non Drug [...] Status Risk Notes Problem Acquired hallux valgus (02727617) Hallux valgus (acquired), left foot (M20.12) Active confirmed Problem Localized, primary osteoarthritis of the ankle and/or foot (907158656) Primary osteoarthrit is, right ankle and foot (M19.071) Active confirmed Problem Localized, primary osteoarthritis of the ankle and/or foot (131597622) Primary osteoarthrit is, left ankle and foot (M19.072) Active confirmed Problem Acquired hallux valgus (94447209) Hallux valgus (acquired), right foot (M20.11) Active confirmed Problem Arriola's neuroma of left foot (103505244291723) 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 Plan Of Treatment Pending Test Test Name Order Date X ray : Foot, left 3V 05/23/2018 X ray : Foot, right 3V 05/23/2018 Insurance Providers Payer Name Payer Address Payer Phone Subscriber Number Group Number Insured Name Patient Relationship to Insured Coverage Start Date Coverage End Date [employer] Medicare [id number] [address] [address] [place] [address] [id number] Juliana Yo Self - patient is the insured Medical (General) History Medical History History ICD Code Arthritis asthma Knee Pain Cataracts Macular degeneration Osteoporosis Measles Mumps Surgical History Surgery Date(Month/Year) right and left knee hemorrhoid carpal tunnel
[2024-10-08 16:03] VITALS: BP 141/64; PULSE 78; RESP 16; TEMP 36.7; O2SAT 98
[2024-10-08 16:05] VITALS: BP 141/64; PULSE 78; RESP 16; TEMP 36.7; O2SAT 98
== END 2024-10-08 16:05 | disposition home or self-care (01) ==
PROVIDERS: Emergency Provider Emergency Medicine; PCP Nurse Practitioner Family
DX: S63.286A Dislocation of proximal interphalangeal joint of right little finger, initial encounter (principal); S09.90XA Unspecified injury of head, initial encounter; S00.83XA Contusion of other part of head, initial encounter; S50.11XA Contusion of right forearm, initial encounter; S80.01XA Contusion of right knee, initial encounter; W18.30XA Fall on same level, unspecified, initial encounter; Y93.9 Activity, unspecified; Y92.9 Unspecified place or not applicable; Y99.9 Unspecified external cause status
CPT/HCPCS: 70450; 70486; 73130; 99284

== ENCOUNTER → 2024-10-08 13:05 | Outpatient (BNV) | payer MEDICARE, SELFPAY | PROVIDERS: PCP Nurse Practitioner Family; Visit Provider Radiology Diagnostic Radiology | DX: R22.0 Localized swelling, mass and lump, head (principal); S09.90XA Unspecified injury of head, initial encounter; S63.286A Dislocation of proximal interphalangeal joint of right little finger, initial encounter | CPT/HCPCS: 70450; 70486; 73130 ==

== ENCOUNTER 2024-10-13 10:11 | Outpatient (REF) | payer MEDICARE, SELFPAY ==
--- NOTE | ~2024-10-13 | XR_ITS ---
EXAMINATION: XR HAND, RIGHT CLINICAL INFORMATION: M79.641 - Pain in right hand COMPARISON: None available. TECHNIQUE: PA, lateral, and oblique views of the right hand. FINDINGS: There is mild osteopenia. There is mild narrowing of the capitate joint of the fourth ray and first CMC joint. Minimal osteophyte formation is noted at the IP joint of thumb and DIP joint. Degenerative cystic changes are evident in the proximal scaphoid and throughout the lunate. Minimal chondrocalcinosis is evident within trying fibrocartilage and lunotriquetral ligament. XR/XR hand RT min 3V IMPRESSION: Osteopenia Mild osteoarthritis Degenerative cystic change throughout the lunate and within proximal pole of scaphoid of uncertain etiology. Chondrocalcinosis. Electronically signed by: Jakob Lo MD 10/13/2024 01:48 PM EDT
--- OUTSIDE RECORDS SUMMARY | 2024-10-17 11:39 | XMS_ITS | Clinical Summary ---
Author Organization [facility] [address] [facility] Address [address] [place] [address] Phone Care Team Providers Care Traffic Engineering Technician Name Role Phone Eli Mclean [...] Maintenance Insurance [employer] MED[employer] Care Teams Traffic Engineering Technician Relationship Specialty Start Date End Date Eli Mclean MD [address] [place] [address] PCP - General Internal Medicine 08/25/13
--- OUTSIDE RECORDS SUMMARY | 2024-10-17 11:39 | XMS_ITS | Patient Health Record ---
Author [facility] Address [address] [facility] [place] [address] Care Team Providers Care Automobile Detailer Name Role Phone Vinay BLANCO, Eli Arriola Primary Care Provider Un available Nikos Velásquez Unavailable [phone] Allergies Allergen (clinical drug ingredient) Drug/Non Drug [...] Status Risk Notes Problem Acquired hallux valgus (52661912) Hallux valgus (acquired), left foot (M20.12) Active confirmed Problem Localized, primary osteoarthritis of the ankle and/or foot (842673741) Primary osteoarthrit is, right ankle and foot (M19.071) Active confirmed Problem Localized, primary osteoarthritis of the ankle and/or foot (490518028) Primary osteoarthrit is, left ankle and foot (M19.072) Active confirmed Problem Acquired hallux valgus (92879587) Hallux valgus (acquired), right foot (M20.11) Active confirmed Problem Arriola's neuroma of left foot (575872920211612) 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 Plan Of Treatment Pending Test Test Name Order Date X ray : Foot, left 3V 05/23/2018 X ray : Foot, right 3V 05/23/2018 Insurance Providers Payer Name Payer Address Payer Phone Subscriber Number Group Number Insured Name Patient Relationship to Insured Coverage Start Date Coverage End Date [employer] Medicare [id number] [address] [address] [place] [address] [id number] Juliana Yo Self - patient is the insured Medical (General) History Medical History History ICD Code Arthritis asthma Knee Pain Cataracts Macular degeneration Osteoporosis Measles Mumps Surgical History Surgery Date(Month/Year) right and left knee hemorrhoid carpal tunnel
--- OUTSIDE RECORDS SUMMARY | 2024-10-17 11:39 | XMS_ITS | Clinical Summary ---
Author Organization [facility] Address [address] [place] [address] Care Team Providers Care Location Analyst Name Role Phone Eli Mclean MD Primary Care Provider [phone] Allergies Active Allergy Reactions Criticality Noted Date [...] age to complete this topic Care Teams Location Analyst Relationship Specialty Start Date End Date Eli Mclean MD [address] [place] [id number] PCP - General Internal Medicine 07/14/19
== END 2024-10-13 10:12 | disposition home or self-care (01) ==
LOC: HO.HOSX 10:11
DX: S63.286A Dislocation of proximal interphalangeal joint of right little finger, initial encounter (principal); M20.021 Boutonniere deformity of right finger(s); W18.39XA Other fall on same level, initial encounter; Y92.129 Unspecified place in nursing home as the place of occurrence of the external cause
CPT/HCPCS: 73130; 99202

== ENCOUNTER 2024-10-13 13:18 | Outpatient (AMB) | payer MEDICARE, SELFPAY ==
--- OUTSIDE RECORDS SUMMARY | 2024-10-13 13:35 | XMS_ITS | Clinical Summary ---
Author Organization [facility] [address] [facility] Address [address] [place] [address] Phone Care Team Providers Care Knuckle Strap Sewer Name Role Phone Eli Mclean MD Primary [...] Maintenance Insurance [employer] MED[employer]ARE Care Teams Knuckle Strap Sewer Relationship Specialty Start Date End Date Eli Mclean MD [address] [place] [address] PCP - General Internal Medicine 08/25/13
--- OUTSIDE RECORDS SUMMARY | 2024-10-13 13:35 | XMS_ITS | Clinical Summary ---
Author Organization [facility] Address [address] [place] [address] Care Team Providers Care Head Start Coordinator Name Role Phone Eli Mclean MD Primary Care Provider [phone] Allergies Active Allergy Reactions Criticality Noted Date [...] age to complete this topic Care Teams Head Start Coordinator Relationship Specialty Start Date End Date Eli Mclean MD [address] [place] [id number] PCP - General Internal Medicine 07/14/19
--- OUTSIDE RECORDS SUMMARY | 2024-10-13 13:35 | XMS_ITS | Patient Health Record ---
Author Organization [facility] Address [address] [place] [address] Care Team Providers Care Rigging Slinger Name Role Phone Vinay BLANCO, Eli Arriola Primary Care Provider Un available Nikos Velásquez Unavailable [phone] Allergies Allergen (clinical drug ingredient) Drug/Non Drug [...] Status Risk Notes Problem Acquired hallux valgus (07627005) Hallux valgus (acquired), left foot (M20.12) Active confirmed Problem Localized, primary osteoarthritis of the ankle and/or foot (573469797) Primary osteoarthrit is, right ankle and foot (M19.071) Active confirmed Problem Localized, primary osteoarthritis of the ankle and/or foot (814644792) Primary osteoarthrit is, left ankle and foot (M19.072) Active confirmed Problem Acquired hallux valgus (15839318) Hallux valgus (acquired), right foot (M20.11) Active confirmed Problem Arriola's neuroma of left foot (672030322579914) 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 Plan Of Treatment Pending Test Test Name Order Date X ray : Foot, left 3V 05/23/2018 X ray : Foot, right 3V 05/23/2018 Insurance Providers Payer Name Payer Address Payer Phone Subscriber Number Group Number Insured Name Patient Relationship to Insured Coverage Start Date Coverage End Date [employer] Medicare [id number] [address] [address] [place] [address] [id number] Juliana Yo Self - patient is the insured Medical (General) History Medical History History ICD Code Arthritis asthma Knee Pain Cataracts Macular degeneration Osteoporosis Measles Mumps Surgical History Surgery Date(Month/Year) right and left knee hemorrhoid carpal tunnel
--- NOTE | 2024-10-13 13:47 | MHC.OFFVIS ---
Vital Signs 10/13/24 13:49 Height 5 ft 6 in Weight 165 lb BMI 26.6 Intake Visit Reasons: ED f/u- Dislocation of rt 5th digit DOI: 10/08/24 Intake Note: Juliana is a 69 year old right hand dominant female, new patient, who presents today for an ED follow up status post Right Small Finger Dislocation, DOI: 10/08/24. Patient presented to [facility] ED reporting she sustained a mechanical fall when her sandal got stuck on the floor of a custodial while she was visiting her father. Patient stated she fell forward, striking her right forearm. At the ED, her finger was straightened and splinted. Patient complains of pain today at the PIP joint. She is concerned for the swelling. She is taking Aleve with minimal relief. Denies numbness or tingling. Denies previous injuries or surgeries to the right hand. Allergies prednisone (PREDNISONE) Allergy (Severe, Verified 10/13/24 13:48) FLUSHING/DIFFICULTY SWALLOWING, anaphalactic reaction codeine (CODEINE) Allergy (Intermediate, Verified 10/13/24 13:48) Nausea and Vomiting HPI HPI ED f/u- Dislocation of rt 5th digit DOI: 10/08/24: Details: Juliana is a 69 year old right hand dominant female, new patient, who presents today for an ED follow up status post Right Small Finger Dislocation, DOI: 10/08/24. Patient presented to [facility] ED reporting she sustained a mechanical fall when her sandal got stuck on the floor of a custodial while she was visiting her father. Patient stated she fell forward, striking her right forearm. At the ED, her finger was straightened and splinted. Patient complains of pain today at the PIP joint. She is concerned for the swelling. Patient is also concerned with the deformity that she has not noted in the DIP joint of the right small finger since her injury, with this joint being held in hyperextension and very difficult to bend actively. She is taking Aleve with minimal relief. Denies numbness or tingling. Denies previous injuries or surgeries to the right hand. [facility] Medical History COPD (chronic obstructive pulmonary disease) Osteopenia Asthma Surgical History S/P shoulder surgery History of hysteroscopy History of arthroscopy of both knees H/O colonoscopy Family History Father No problems noted. Mother Leukemia Breast cancer Social History Household Members: Spouse Housing: Condominium Alcohol intake: current Alcohol intake frequency: a few times a week Patient Tobacco Use Status: Former Tobacco user Years Smoked: 40 years e-Cigarette/Vaping Use: Never Used Second Hand Smoke Exposure: No service: No Current occupational status: employed Current occupation: real estate Current occupational exposures/hazards: No Cognitive needs: No Hearing needs: No Vision needs: No Review of Systems Const All systems reviewed & are unremarkable except as noted in HPI and below Physical Exam Vital Signs: BMI result Body Mass Index 26.6 Results Reviewed Results Reviewed: X-rays obtained in the office today and independently reviewed by me, Nelson Simmons PA-C, demonstrate no fracture of the right small finger, however the DIP joint is held in hyperextension. Assessment & Plan Assessment & Plan (1) Dislocation of proximal interphalangeal joint of right little finger: Code(s): S63.286A - Dislocation of proximal interphalangeal joint of right little finger, initial encounter Category: Medical (2) Boutonniere deformity of finger of right hand: Code(s): M20.021 - Boutonniere deformity of right finger(s) Category: Medical Plan 1. PIP dislocation of right small finger status post reduction in the ED 2. 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 Valiente next week for acute boutonniere deformity of right small finger to determine if there is any further operative intervention indicated Patient understands this and is amenable to this plan Follow-up next week Orders: Orders XR hand RT min 3V Today M79.641 - Pain in right hand Coding Level of Care Code New Pt Level 3 (57785) Diagnoses Dislocation of proximal interphalangeal joint of right little finger S63.286A Boutonniere deformity of finger of right hand M20.021
[2024-10-13 13:49] VITALS: BMI 26.6
== END 2024-10-13 14:03 | disposition home or self-care (01) ==
LOC: HO.HOS 13:19
PROVIDERS: PCP Nurse Practitioner Family
DX: S63.286A Dislocation of proximal interphalangeal joint of right little finger, initial encounter (principal); M20.021 Boutonniere deformity of right finger(s)
CPT/HCPCS: 99203

== ENCOUNTER → 2024-10-13 13:23 | Outpatient (BNV) | payer MEDICARE, SELFPAY | PROVIDERS: Visit Provider Radiology Diagnostic Radiology | DX: M85.641 Other cyst of bone, right hand (principal); M84.84 Other disorders of continuity of bone, hand; M11.231 Other chondrocalcinosis, right wrist | CPT/HCPCS: 73130 ==

== ENCOUNTER 2024-10-18 09:42 | Outpatient (REF) | payer MEDICARE, SELFPAY ==
--- NOTE | ~2024-10-18 | XR_ITS ---
EXAMINATION: XR HAND, RIGHT CLINICAL INFORMATION: M79.641 - Pain in right hand , anteriorly dislocated fifth PIP joint on October 08, 2024 post reduction COMPARISON: October 08 and October 13, 2024 TECHNIQUE: PA, lateral, and oblique views of the right hand. FINDINGS: There is osteopenia. There is no abnormality of the fifth digit. There is stable widening of the scapholunate interval. Scapholunate angle measures 75 degrees. There is amorphous calcification consistent with pyrophosphate deposition in the scapholunate joint and triangular fiber cartilage. Degenerative cystic changes present in the lunate and proximal pole of scaphoid. XR/XR hand RT min 3V IMPRESSION: Unremarkable fifth digit. Osteopenia. Scapholunate diastases consistent with tear or partial tear of scapholunate ligament. Scapholunate angle is increased raising concern for DISI deformity. Degenerative cystic and sclerotic changes in the lunate and degenerative cystic change in the proximal pole scaphoid. Pyrophosphate deposition. Electronically signed by: Jakob Lo MD 10/18/2024 11:26 AM EDT
--- OUTSIDE RECORDS SUMMARY | 2024-10-18 10:42 | XMS_ITS | Clinical Summary ---
Author Organization [facility] Address [address] [place] [address] Care Team Providers Care Sawsmith Name Role Phone Eli Mclean MD Primary Care Provider [phone] Allergies Active Allergy Reactions Criticality Noted Date [...] age to complete this topic Care Teams Sawsmith Relationship Specialty Start Date End Date Eli Mclean MD [address] [place] [id number] PCP - General Internal Medicine 07/14/19
--- OUTSIDE RECORDS SUMMARY | 2024-10-18 10:42 | XMS_ITS | Patient Health Record ---
Author Organization [facility] Address [address] [place] [address] Care Team Providers Care Control And Recovery Special Tactics Name Role Phone Vinay BLANCO, Eli Arriola Primary Care Provider Un available Nikos Velásquez Unavailable [phone] Allergies Allergen (clinical drug ingredient) Drug/Non Drug [...] Status Risk Notes Problem Acquired hallux valgus (89825615) Hallux valgus (acquired), left foot (M20.12) Active confirmed Problem Localized, primary osteoarthritis of the ankle and/or foot (386182434) Primary osteoarthrit is, right ankle and foot (M19.071) Active confirmed Problem Localized, primary osteoarthritis of the ankle and/or foot (719214308) Primary osteoarthrit is, left ankle and foot (M19.072) Active confirmed Problem Acquired hallux valgus (38124775) Hallux valgus (acquired), right foot (M20.11) Active confirmed Problem Arriola's neuroma of left foot (204258714695647) 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 Plan Of Treatment Pending Test Test Name Order Date X ray : Foot, left 3V 05/23/2018 X ray : Foot, right 3V 05/23/2018 Insurance Providers Payer Name Payer Address Payer Phone Subscriber Number Group Number Insured Name Patient Relationship to Insured Coverage Start Date Coverage End Date [employer] Medicare [id number] [address] [address] [place] [address] [id number] Juliana Yo Self - patient is the insured Medical (General) History Medical History History ICD Code Arthritis asthma Knee Pain Cataracts Macular degeneration Osteoporosis Measles Mumps Surgical History Surgery Date(Month/Year) right and left knee hemorrhoid carpal tunnel
--- OUTSIDE RECORDS SUMMARY | 2024-10-18 10:42 | XMS_ITS | Clinical Summary ---
Author Organization [facility] [address] [facility] Address [address] [place] [address] Phone Care Team Providers Care Extractor And Wringer Operator Name Role Phone Eli Mcelan MD Primary Care Provider Allergies Active Allergy [...] Maintenance Insurance [employer] MED[employer] Care Teams Extractor And Wringer Operator Relationship Specialty Start Date End Date Eli Mclean MD [address] [place] [address] PCP - General Internal Medicine 08/25/13
== END 2024-10-18 09:43 | disposition home or self-care (01) ==
LOC: HO.HOSX 09:42
PROVIDERS: Visit Provider Orthopaedic Surgery
DX: S63.286A Dislocation of proximal interphalangeal joint of right little finger, initial encounter (principal); M20.021 Boutonniere deformity of right finger(s); W01.0XXA Fall on same level from slipping, tripping and stumbling without subsequent striking against object, initial encounter; Y92.129 Unspecified place in nursing home as the place of occurrence of the external cause
CPT/HCPCS: 73130; 99212

== ENCOUNTER 2024-10-18 10:38 | Outpatient (AMB) | payer MEDICARE, SELFPAY ==
--- NOTE | 2024-10-18 11:02 | MHC.OFFVIS ---
Vital Signs 10/18/24 11:03 Height 5 ft 6 in Weight 165 lb BMI 26.6 Intake Visit Reasons: OV-Dislocation of rt 5th digit DOI: 10/08/24 Intake Note: Juliana is a 69 year old right hand dominant female who presents today for an follow up status post Right Small Finger Dislocation, DOI: 10/08/24. Patient presented to [facility] reporting she sustained a mechanical fall when her sandal got stuck on the floor of a group home while she was visiting her father. Last seen with Claudine Damon who advise patient to do cindy tape. Currently states she continues to have pain, painful to write and do daily living activities. Denies numbness or tingling. Allergies prednisone (PREDNISONE) Allergy (Severe, Verified 10/18/24 11:03) FLUSHING/DIFFICULTY SWALLOWING, anaphalactic reaction codeine (CODEINE) Allergy (Intermediate, Verified 10/18/24 11:03) Nausea and Vomiting HPI HPI OV-Dislocation of rt 5th digit DOI: 10/08/24: Details: Juliana is a 69 year old right hand dominant woman who presents for a right small finger dislocation, S/P fall, DOI: 10/08/24. She was seen i the ED where her finger was reduced & splinted. She was seen by CHENG Damon on 10/13/24 where her fingers were Cindy-Taped. She says she is doing better but continues to have pain & limited function of her small finger. She is concerned about a deformity to her DIP joint, which developed after her injury. She denies any numbness or tingling. She works in real estate. [facility]LY [facility], [facility] Medical History COPD (chronic obstructive pulmonary disease) Osteopenia Asthma Surgical History S/P shoulder surgery History of hysteroscopy History of arthroscopy of both knees H/O colonoscopy Family History Father No problems noted. Mother Leukemia Breast cancer Social History Household Members: Spouse Housing: Condominium Alcohol intake: current Alcohol intake frequency: a few times a week Patient Tobacco Use Status: Former Tobacco user Years Smoked: 40 years e-Cigarette/Vaping Use: Never Used Second Hand Smoke Exposure: No service: No Current occupational status: employed Current occupation: real estate Current occupational exposures/hazards: No Cognitive needs: No Hearing needs: No Vision needs: No Review of Systems Const All systems reviewed & are unremarkable except as noted in HPI and below Physical Exam Vital Signs: BMI result Body Mass Index 26.6 Const General: cooperative, healthy appearing and no acute distress Orientation/consciousness: patient oriented x3 HEENT Head: Yes normocephalic and Yes atraumatic Eyes EOM: EOMs intact bilaterally Resp Effort & Inspection: normal respiratory effort and able to speak in complete sentences Cardio Jugular venous distension: no JVD Skin General skin exam: turgor normal Rashes: no rashes Neuro General: patient oriented x3 Extrem Other: Evaluation of Right Upper Extremity: The patient is alert, oriented, and in no acute distress Neuro: Sensation intact to the tips of digits Vascular: Cap refill brisk ROM: She can make a fist and extend all her digits Good FDP & FDS tendon function of the small finger Some hyperextension of the small finger DIP joint, and the PIP joint is held in some flexion. She can actively extend the PIP joint and hold it extended against resistance. However, her finger is tending to be held in an early boutonniere type position with PIP flexion and D IP hyper extension Skin: No lacerations or abrasions. Small finger is still somewhat swollen and tender about the PIP joint Resolving ecchymosis Radiographs: 3 views of the right hand were taken and viewed by me today in clinic. They show no fractures or dislocations. The PIP joint is concentrically reduced. There is some hyperextension of the small finger DIP joint, and a satisfactory reduction of the PIP joint. 3 views of the right hand from 10/08/24 show a volar dislocation of the small finger PIP joint. Psych Appearance: grossly normal Affect: normal affect Attitude: cooperative Assessment & Plan Assessment & Plan (1) Dislocation of proximal interphalangeal joint of right little finger: Code(s): S63.286A - Dislocation of proximal interphalangeal joint of right little finger, initial encounter Category: Medical (2) Boutonniere deformity of finger of right hand: Code(s): M20.021 - Boutonniere deformity of right finger(s) Category: Medical Plan Assessment & Plan: 1. Right small finger PIP joint volar dislocation, S/P reduction DOI: 10/08/24 Reduced in ED: 10/08/24 2. Early right small finger traumatic Boutonniere deformity, S/P fall I educated her about this condition I discussed operative & non-operative treatment options. Depending on her recovery she may need surgical intervention to correct this The central slip appears to be intact, though I suspect the lateral bands are migrating volarly when the PIP joint is flexed. I recommend splinting, OT, and activity modification, and she is in agreement I ordered OT hand therapy to have a custom thermoplastic finger splint made which holds her PIP joint in extension and allows for DIP joint ROM. She should wear this daily for at least 12 hour periods. She will work on active DIP joint ROM exercises with OT hand therapy She will work on ROM exercises while in her splint She will follow up in 3 weeks to see how she is doing, no X-rays unless she has a new injury Scribed for Katty Valiente MD by Edi Kirby, certified medical asst, on 10/18/24 at 11:10 AM, EST. Orders: Orders XR hand RT min 3V Today M79.641 - Pain in right hand OT Evaluation and Treatment Today M20.021 - Boutonniere deformity of right finger(s), S63.286A - Dislocation of proximal interphalangeal joint of right little finger, initial encounter Coding Level of Care Code Est Pt Level 4 (99358) Diagnoses Dislocation of proximal interphalangeal joint of right little finger S63.286A Boutonniere deformity of finger of right hand M20.021
[2024-10-18 11:03] VITALS: BMI 26.6
== END 2024-10-18 11:49 | disposition home or self-care (01) ==
LOC: HO.HOS 10:39
PROVIDERS: PCP Nurse Practitioner Family; Visit Provider Orthopaedic Surgery
DX: S63.286A Dislocation of proximal interphalangeal joint of right little finger, initial encounter (principal); M20.021 Boutonniere deformity of right finger(s)
CPT/HCPCS: 99214

== ENCOUNTER → 2024-10-18 10:41 | Outpatient (BNV) | payer MEDICARE, SELFPAY | PROVIDERS: Visit Provider Radiology Diagnostic Radiology | DX: M85.641 Other cyst of bone, right hand (principal) | CPT/HCPCS: 73130 ==

== ENCOUNTER 2024-11-01 10:46 | Outpatient (RCR) | payer MEDICARE, SELFPAY ==
--- NOTE | 2024-10-20 10:08 | MHC.OT.EP ---
[facility] Office [address] [phone] F: [phone] F: [phone] Occupational Therapy Plan of Care Patient Name: Juliana Curtis Date of Evaluation: 10/20/24 Diagnosis: R SF Boutineer0 Pain Location: Pain Score: 2 Pain Scale Used: Numeric (0 - 10) Aggravating Factors: flexion/ ROM Alleviating Factors: ice Assessment: Pt is a R hand dominant 69 yr old female who injured her R SF when her sandal got stuck in the floor while visiting in her Dad's long term dislocating her SF. 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 She presents today w/ edema, atrophy of her hypothenar, and decreased ROM. Pt has been referred to skilled OT therapy to address and these deficits and return patient to her PLOF Frequency and Duration: The patient will be seen 1 x a week for 8 weeks Short Term Goals: Pt will be complaint w/ use of modalities to decrease edema Pt will be compliant w/ HEP (PROM MP/DIP ) Pt will have BRISCOE of her SF 200 Skilled Nursing Goals: Pt will report using her R hand to write w/out difficulty Pt will have BRISCOE of her R SF be 250 Pt will RPLOF Treatment Plan: Therapeutic Exercise Therapeutic Activity Home Exercise Program Splinting Neuro Re-ed Patient Education Desensitization/Sensory Re-ed Edema Control ADL Training Ultrasound NMES Paraffin Fluidotherapy MHP Joint Mobilization Soft Tissue Mobilization Kinesiotaping Weekly splint checks ; alterations Electronically Signed By: Lois Choudhary OTR/L Please Sign and return to therapist. Thank you once again for your referral.
--- NOTE | 2024-10-20 10:15 | MHC.OT.EP ---
[facility] Office [address] [phone] F: [phone] F: [phone] Occupational Therapy Plan of Care Patient Name: Juliana Curtis Date of Evaluation: 10/20/24 Diagnosis: R SF Boutineer0 Pain Location: R SF Pain Score: 2 Pain Scale Used: Numeric (0 - 10) Aggravating Factors: flexion/ ROM Alleviating Factors: ice Assessment: Pt is a R hand dominant 69 yr old female who injured her R SF when her sandal got stuck in the floor while visiting in her Dad's detention dislocating her SF. 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 She presents today w/ edema, atrophy of her hypothenar, and decreased ROM. Pt has been referred to skilled OT therapy to address and these deficits and return patient to her PLOF Frequency and Duration: The patient will be seen 1 x a week for 8 weeks Short Term Goals: Pt will be complaint w/ use of modalities to decrease edema Pt will be compliant w/ HEP (PROM MP/DIP ) Pt will have BRISCOE of her SF 200 Air Traffic Control Specialist Goals: Pt will report using her R hand to write w/out difficulty Pt will have BRISCOE of her R SF be 250 Pt will RPLOF Treatment Plan: Therapeutic Exercise Therapeutic Activity Home Exercise Program Splinting Neuro Re-ed Patient Education Desensitization/Sensory Re-ed Edema Control ADL Training Ultrasound NMES Paraffin Fluidotherapy MHP Joint Mobilization Soft Tissue Mobilization Kinesiotaping Weekly splint checks ; alterations Electronically Signed By: Lois Choudhary OTR/L Please Sign and return to therapist. Thank you once again for your referral.
--- NOTE | 2025-01-17 08:42 | MHC.OT.DC ---
[facility] Office [address] [facility] [phone] F: [phone] F: [phone] Occupational Therapy Discharge Note Patient Name: Juliana Curtis Provider: Katty Valiente Diagnosis: R SF Luisaineer0 Date of Surgery: Date of Evaluation: 10/20/24 Date of Discharge: Treatments to Date: 2 Cancellations to Date: No Shows to Date: Discharge Status: Discharge Summary: Pt reports she would like to trial wearing orthoses, and treating her SF on her own and will return to therapy in a few weeks if necessary (from last sisit) Pt did not follow up w/ OT only attended two visits provided w/ 3 splints and was not complaint w/ HEP or splints ; has a new script for OT ; will go to [facility] Electronically Signed By: Lois Choudhary OTR/L Reviewed/agree with student documentation: Therapist: Please Sign and return to therapist, thank you for your referral.
== END 2025-01-17 08:04 | disposition home or self-care (01) ==
LOC: HO.OT 10:46
PROVIDERS: PCP Nurse Practitioner Family; Visit Provider Orthopaedic Surgery
DX: S63.286A Dislocation of proximal interphalangeal joint of right little finger, initial encounter (principal); M20.021 Boutonniere deformity of right finger(s)
CPT/HCPCS: 29130; 97140; 97165; 97535; 97760

== ENCOUNTER 2024-11-07 07:54 | Outpatient (AMB) | payer MEDICARE, SELFPAY ==
--- NOTE | 2024-11-07 07:56 | MHC.OFFWIV ---
Intake Vital Signs 11/07/24 07:57 Height 5 ft 6 in Weight 165 lb BMI 26.6 BP 126/68 Blood Pressure Location Lt brachial Position Sitting Respiration 16 Pulse 81 Pulse Source Pulse Oximeter Temp 97.5 F Temp Source Oral Pulse Oximetry (%) 97 Oxygen Delivery Method Room Air Intake Visit Reasons: EP Bilat ear pain Intake Note: Pt is here today c/o bilateral ear pain x4days Patient Tobacco Use Status: Former Tobacco user Allergies prednisone (PREDNISONE) Allergy (Severe, Verified 11/07/24 08:00) FLUSHING/DIFFICULTY SWALLOWING, anaphalactic reaction codeine (CODEINE) Allergy (Intermediate, Verified 11/07/24 08:00) Nausea and Vomiting HPI HPI Comments History of Present Illness Details History - The patient is a 69-year-old female presenting with right ear pain. - The ear pain began approximately four days ago. - She has a pressure in the right ear and it feels sore. - She has no accompanying symptoms such as ringing, dizziness, pressure, sore throat, cough, or fever. - The patient denies recent water exposure and reports regular ear cleaning practices. - She denies cold symptoms, PACHECO, cough, discharge, nausea, or vomiting. Physical Exam General: Cooperative, healthy appearing, comfortable, no acute distress and well developed Head: Normal to inspection Ears: External ears normal bilaterally. No tragus or mastoid tenderness noted. Cerumen noted in the right canal. TM not visualized. Face and sinus: Normal facial exam. No TTP of the sinuses. Neck: Normal visual inspection. Full ROM. No lymphadenopathy noted. Respiratory: Normal respiratory effort and able to speak in complete sentences. Clear to auscultation bilaterally. No w/r/r noted. Cardiac: RRR, no m/r/g noted. Normal S1 and S2 noted. Skin: No rashes or lesions noted Neuro: Patient oriented x3 Patient was informed and verbally consented to the use of an ambient scribe for clinic note documentation during this visit. [facility] Medical History COPD (chronic obstructive pulmonary disease) Osteopenia Asthma Surgical History S/P shoulder surgery History of hysteroscopy History of arthroscopy of both knees H/O colonoscopy Family History Father No problems noted. 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 Current occupational exposures/hazards: No Cognitive needs: No Hearing needs: No Vision needs: No Review of Systems Const All systems reviewed & are unremarkable except as noted in HPI and below Physical Exam Vital Signs: Last Vital Signs Temp 97.5 F 11/07/24 07:57 Pulse 81 11/07/24 07:57 Resp 16 11/07/24 07:57 BP 126/68 11/07/24 07:57 Pulse Ox 97 11/07/24 07:57 Oxygen Delivery Method Room Air 11/07/24 07:57 BMI result Body Mass Index 26.6 Office Procedures Cerumen Removal From which ear canal was the cerumen removed: right Removal: irrigation Notes: patient tolerated procedure well, no complications and ear canal clear [id number] Irrigation/Lavage Assessment & Plan Assessment & Plan (1) Ear pain, right: Code(s): H92.01 - Otalgia, right ear (2) Cerumen impaction: Code(s): H61.20 - Impacted cerumen, unspecified ear Qualifiers: Laterality: right Qualified Code(s): H61.21 - Impacted cerumen, right ear Plan Most likely cerumen impaction Plan - Perform ear irrigation to remove impacted cerumen from the left ear. - Instruct the patient to avoid q-tips - debrox drops as needed - follow up with PCP. Orders: Orders AMB Cerumen Removal Today H61.23 - Impacted cerumen, bilateral Coding Level of Care Code Est Pt Level 3 (34943) Diagnoses Ear pain, right H92.01 Impacted cerumen of right ear H61.21 Laterality: right CPT Codes Office Procedure - CPT: [id number] Irrigation/Lavage ([id number])
[2024-11-07 07:57] VITALS: BP 126/68; PULSE 81; RESP 16; TEMP 36.4; O2SAT 97; BMI 26.6
--- OUTSIDE RECORDS SUMMARY | 2024-11-07 07:57 | XMS_ITS | Clinical Summary ---
Author Organization [facility] [address] Address [address] [place] [address] Phone Care Team Providers Care Instructional Technology Instructor Name Role Phone Eli Mclean MD Primary Care Provider [phone] Allergies Active Allergy Reactions Criticality Noted Date [...] Maintenance Insurance [employer] MEDICARE Care Teams Instructional Technology Instructor Relationship Specialty Start Date End Date Eli Mclean MD [address] [place] [address] PCP - General Internal Medicine 08/25/13
--- OUTSIDE RECORDS SUMMARY | 2024-11-07 07:57 | XMS_ITS | Patient Health Record ---
[facility] Address [address] [place] [address] Care Team Providers Care Sequins Stringer Name Role Phone Vinay BLANCO, Eli Arriola Primary Care Provider Un available Nikos Velásquez Unavailable [phone] Allergies Allergen (clinical drug ingredient) Drug/Non Drug [...] Status Risk Notes Problem Acquired hallux valgus (55939413) Hallux valgus (acquired), left foot (M20.12) Active confirmed Problem Localized, primary osteoarthritis of the ankle and/or foot (989419399) Primary osteoarthrit is, right ankle and foot (M19.071) Active confirmed Problem Localized, primary osteoarthritis of the ankle and/or foot (811767772) Primary osteoarthrit is, left ankle and foot (M19.072) Active confirmed Problem Acquired hallux valgus (64685244) Hallux valgus (acquired), right foot (M20.11) Active confirmed Problem Arriola's neuroma of left foot (735485658572043) 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 Plan Of Treatment Pending Test Test Name Order Date X ray : Foot, left 3V 05/23/2018 X ray : Foot, right 3V 05/23/2018 Insurance Providers Payer Name Payer Address Payer Phone Subscriber Number Group Number Insured Name Patient Relationship to Insured Coverage Start Date Coverage End Date [employer] Medicare Adv-[id number] [address] [address] [place] [address] [id number] Juliana Yo Self - patient is the insured Medical (General) History Medical History History ICD Code Arthritis asthma Knee Pain Cataracts Macular degeneration Osteoporosis Measles Mumps Surgical History Surgery Date(Month/Year) right and left knee hemorrhoid carpal tunnel
--- OUTSIDE RECORDS SUMMARY | 2024-11-07 07:57 | XMS_ITS | Clinical Summary ---
Author Organization [facility] Address [address] [place] [address] Care Team Providers Care Soda Fountain Manager Name Role Phone Eli Mclean MD Primary Care Provider [phone] Allergies Active Allergy Reactions Criticality Noted Date [...] age to complete this topic Care Teams Soda Fountain Manager Relationship Specialty Start Date End Date Eli Mclean MD [address] [place] [id number] PCP - General Internal Medicine 07/14/19
== END 2024-11-07 08:53 | disposition home or self-care (01) ==
PROVIDERS: PCP Nurse Practitioner Family; Visit Provider Physician Assistant Medical
DX: H92.01 Otalgia, right ear (principal); H61.21 Impacted cerumen, right ear

== ENCOUNTER → 2024-11-07 07:54 | Outpatient (BNVA) | payer MEDICARE, SELFPAY | PROVIDERS: PCP Nurse Practitioner Family; Visit Provider Physician Assistant Medical | DX: H92.01 Otalgia, right ear (principal); H61.23 Impacted cerumen, bilateral | CPT/HCPCS: 69209; 99212 ==

== ENCOUNTER 2024-11-20 07:17 | Outpatient (REF) | payer MEDICARE, SELFPAY ==
--- OUTSIDE RECORDS SUMMARY | 2024-11-20 07:20 | XMS_ITS | Clinical Summary ---
Author Organization [facility] Address [address] [place] [address] Care Team Providers Care Financial Accounting Manager Name Role Phone Eli Mclean MD Primary Care Provider [phone] Allergies Active Allergy Reactions Criticality Noted Date [...] age to complete this topic Care Teams Financial Accounting Manager Relationship Specialty Start Date End Date Eli Mclean MD [address] [place] [id number] PCP - General Internal Medicine 07/14/19
--- OUTSIDE RECORDS SUMMARY | 2024-11-20 07:20 | XMS_ITS | Clinical Summary ---
Author Organization [facility] [address] [facility] Address [address] [place] [address] Phone Care Team Providers Care Insurance And Financial Services Agent Name Role Phone Eli Mclean MD Primary Care Provider [phone] Allergies Active Allergy Reactions Criticality Noted Date [...] Vaccine: 50+ Years (2 of 2 - PCV20 or PCV21) 01/09/2021 01/10/2020 Falls Risk Assessment 01/23/2022 Hepatitis C Screening 01/23/2022 Medicare Annual Wellness Visit 01/23/2022 Osteoporosis Screening (Bone Density Screening) 01/23/2022 Social Influencers of Health Screening 01/23/2022 Depression Screening 02/16/2024 COVID-19 Vaccine ( - season) 2024 12/06/2023, 11/26/2022, 12/12/2021, Additional history [...] Maintenance Insurance [employer] MEDICARE Care Teams Insurance And Financial Services Agent Relationship Specialty Start Date End Date Eli Mclean MD [address] [place] [address] PCP - General Internal Medicine 08/25/13
--- OUTSIDE RECORDS SUMMARY | 2024-11-20 07:21 | XMS_ITS | Patient Health Record ---
[facility] Address [address] [place] [address] Care Team Providers Care Social Service Worker Name Role Phone Vinay BLANCO, Eli Arriola Primary Care Provider Un available Nikos Zhou Unavailable [phone] Allergies Allergen (clinical drug ingredient) Drug/Non Drug [...] Status Risk Notes Problem Acquired hallux valgus (37368738) Hallux valgus (acquired), left foot (M20.12) Active confirmed Problem Localized, primary osteoarthritis of the ankle and/or foot (440401518) Primary osteoarthrit is, right ankle and foot (M19.071) Active confirmed Problem Localized, primary osteoarthritis of the ankle and/or foot (181126991) Primary osteoarthrit is, left ankle and foot (M19.072) Active confirmed Problem Acquired hallux valgus (00442732) Hallux valgus (acquired), right foot (M20.11) Active confirmed Problem Arriola's neuroma of left foot (478444260055135) 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 Plan Of Treatment Pending Test Test Name Order Date X ray : Foot, left 3V 05/23/2018 X ray : Foot, right 3V 05/23/2018 Insurance Providers Payer Name Payer Address Payer Phone Subscriber Number Group Number Insured Name Patient Relationship to Insured Coverage Start Date Coverage End Date [employer] Medicare [id number] [address] [address] [place] [address] [id number] Juliana Yo Self - patient is the insured Medical (General) History Medical History History ICD Code Arthritis asthma Knee Pain Cataracts Macular degeneration Osteoporosis Measles Mumps Surgical History Surgery Date(Month/Year) right and left knee hemorrhoid carpal tunnel
[2024-11-20 10:29] LABS: Appearance Urine Clear; Glucose Urine UA Negative (Negative); PH 5.5 (5.0-9.0); Specific Gravity - Urine 1.020 (1.005-1.025); UMIC TRIGGER UACC YES
[2024-11-20 10:36] LABS: MANUAL DIFF FLAG NO
[2024-11-20 10:40] LABS: UACC Culture Trigger YES
[2024-11-20 10:43] LABS: Hematocrit 39.0 % (37.0-47.0); Hemoglobin 13.5 g/dl (12.0-16.0); Imm Gran Abs Auto 0.02 X10*3/uL (0.00-0.03); Imm Gran Pct Auto 0.4 % (0.0-0.4); Lymphocytes Absolute Auto 2.0 X10*3/uL (1.2-4.9); Mean Corpuscular HGB Conc 34.6 g/dl (31.0-35.0); Mean Corpuscular Hemoglobin 31.9 pg (27.0-33.0); Mean Corpuscular Volume 92.2 fL (80.0-98.0); NRBC Abs Auto 0.000 X10*3/uL (0.0-0.012); NRBC Pct Auto 0.0 /100WBC (0.0-0.2); Platelet Count 193 X10*3/uL (160-400); Red Blood Count 4.23 X10*6/uL (4.20-5.50); White Blood Count 5.0 X10*3/uL (4.8-10.8)
[2024-11-20 11:12] LABS: Alanine Aminotransferase 15 U/L (0-31); Albumin Level 4.3 g/dL (3.5-5.0); Alkaline Phosphatase 69 U/L (39-117); Anion Gap 9 (12-20); Aspartate Amino Transferase 21 U/L (5-31); Blood Urea Nitrogen 17 mg/dL (9-16); Calcium 9.0 mg/dL (8.4-10.2); Carbon Dioxide 27 mmol/L (22-29); Chloride 110 mmol/L (96-108); Cholesterol 203 mg/dL (<200); Estimated Glomerular Filt Rate > 60; HDL Cholesterol 64 mg/dL (>40); Potassium 4.1 mmol/L (3.3-5.1); Sodium 142 mmol/L (135-145); Total Protein 6.7 g/dL (6.5-8.0); Triglycerides 81 mg/dL (<150)
== END 2024-11-20 07:18 | disposition home or self-care (01) ==
LOC: HO.HMGCLDS 07:17
PROVIDERS: PCP Nurse Practitioner Family; Visit Provider Nurse Practitioner Family
DX: Z00.01 Encounter for general adult medical examination with abnormal findings (principal); E55.9 Vitamin D deficiency, unspecified; Z13.6 Encounter for screening for cardiovascular disorders
CPT/HCPCS: 36415; 80053; 80061; 81001; 82306; 84443; 85025; 87086

== ENCOUNTER 2024-11-29 10:20 | Outpatient (REF) | payer MEDICARE, SELFPAY ==
[2024-11-29 15:47] LABS: Chlamydia pneumoniae PCR Not Detected (Not Detect.); Coronavirus 229E PCR Not Detected (Not Detect.); Coronavirus HKU1 PCR Not Detected (Not Detect.); Coronavirus NL63 PCR Not Detected (Not Detect.); Coronavirus OC43 PCR Not Detected (Not Detect.); RSV PCR Not Detected (Not Detect.); Rhino/Enterovirus PCR Not Detected (Not Detect.)
[2024-11-29 17:18] LABS: Influenza A H1 PCR Not Detected (Not Detect.); Influenza A H1-2009 PCR Not Detected (Not Detect.); Influenza A H3 PCR Not Detected (Not Detect.); SARS-CoV-2 PCR Not Detected (Not Detect.)
== END 2024-11-29 10:21 | disposition home or self-care (01) ==
LOC: HO.LAB 10:20
PROVIDERS: Physician Assistant; PCP Nurse Practitioner Family
DX: J06.9 Acute upper respiratory infection, unspecified (principal); H61.21 Impacted cerumen, right ear
CPT/HCPCS: 87633; 99212

== ENCOUNTER 2024-11-29 10:20 | Outpatient (AMB) | payer MEDICARE, SELFPAY ==
--- NOTE | 2024-11-29 10:33 | MHC.OFFWIV ---
Intake Vital Signs 11/29/24 10:34 Height 5 ft 6 in Weight 170 lb BMI 27.4 BP 122/78 Blood Pressure Location Rt brachial Position Sitting Pulse 92 Pulse Source Pulse Oximeter Temp 98.2 F Temp Source Oral Pulse Oximetry (%) 97 Oxygen Delivery Method Room Air Intake Visit Reasons: EP Cold symptoms Intake Note: pt presents with chest congestion Patient Tobacco Use Status: Former Tobacco user Allergies prednisone (PREDNISONE) Allergy (Severe, Verified 11/29/24 10:35) FLUSHING/DIFFICULTY SWALLOWING, anaphalactic reaction codeine (CODEINE) Allergy (Intermediate, Verified 11/29/24 10:35) Nausea and Vomiting Do you need a note to return to daycare/school/sports/work: No HPI HPI Comments History of Present Illness Details History - The patient is a 69-year-old female presenting with symptoms of a viral upper respiratory infection and concerns related to asthma management. - Symptoms began a couple of days ago, with chest heaviness and fatigue worsening today. - She denies shortness of breath and wheezing but has a history of asthma, using a rescue inhaler which helped. - Coughing with blood was noted this morning, relieved by inhaler use. - She denies fever, chills, or body aches but reports chest congestion. - Allergic to prednisone, causing throat closure and rash. Physical Exam General: Cooperative, healthy appearing, comfortable and no acute distress Orientation/consciousness: Patient oriented x3 Limitations: No limitations Head: Normal to inspection Ears: Hearing grossly normal bilaterally, external ears normal and TM's normal left, TM right with deep cerumen Nose: Normal external nose present, Normal nares present and No nasal discharge present Face and sinus: Normal facial exam and Yes sinuses nontender Mouth: Normal oral and palatal mucosa present and moist mucous membranes Throat: Yes tonsils normal, Yes uvula midline. Posterior oropharynx erythema, no exudates Eyes: Appearance normal, both eyes and all related structures Neck: Normal visual inspection, full ROM Respiratory: Clear to auscultation bilaterally. Normal respiratory effort, able to speak in complete sentences, Actively coughing, no respiratory distress, not tachypneic, no tripod positioning and no use of accessory muscles Cardiovascular: Regular rate and rhythm. Normal S1 and S2 Skin: No rashes or lesions noted Neuro: Patient oriented x3 Extremities: Normal to inspection and Yes no clubbing, cyanosis or edema Review of Systems - Respiratory: Denies dyspnea and wheezing, reports chest heaviness and congestion - General: Denies fever, chills, or body aches - Ears: Reports history of cerumen impaction, denies hearing loss All systems reviewed and are unremarkable except as noted in HPI [facility] Medical History COPD (chronic obstructive pulmonary disease) Osteopenia Asthma Surgical History S/P shoulder surgery History of hysteroscopy History of arthroscopy of both knees H/O colonoscopy Family History Father No problems noted. Mother Leukemia Breast cancer Social History Household Members: Spouse Housing: [facility] Alcohol intake: current Alcohol intake frequency: a few times a week Patient Tobacco Use Status: Former Tobacco user Years Smoked: 40 years e-Cigarette/Vaping Use: Never Used Second Hand Smoke Exposure: No service: No Current occupational status: employed Current occupation: [employer] Current occupational exposures/hazards: No Cognitive needs: No Hearing needs: No Vision needs: No Physical Exam Vital Signs: Last Vital Signs Temp 98.2 F 11/29/24 10:34 Pulse 92 11/29/24 10:34 BP 122/78 11/29/24 10:34 Pulse Ox 97 11/29/24 10:34 Oxygen Delivery Method Room Air 11/29/24 10:34 BMI result Body Mass Index 27.4 Assessment & Plan Assessment & Plan (1) Lower respiratory infection (e.g., bronchitis, pneumonia, pneumonitis, pulmonitis): Code(s): J22 - Unspecified acute lower respiratory infection Plan: Plan Patient was informed and verbally consented to the use of an ambient scribe for clinic note documentation during this visit. - VSS, pt well appearing and PE unremarkable. - Continue use of rescue inhaler as needed for asthma symptoms. - Avoid prednisone due to allergy, consider alternative medications if needed. - Viral panel conducted to identify specific virus. - Continue Zyrtec for symptom relief, consider Sudafed for congestion if no contraindications. - Monitor symptoms; if viral panel is negative, consider bacterial infection and initiate antibiotics. (2) Excessive cerumen in right ear canal: Code(s): H61.21 - Impacted cerumen, right ear Plan: - Use Debrox drops to soften and remove earwax. Orders: Orders Resp Pathogen Panel - [facility] Today J06.9 - Acute upper respiratory infection, unspecified Coding Level of Care Code Est Pt Level 4 (66176) Diagnoses Lower respiratory infection (e.g., bronchitis, pneumonia, pneumonitis, pulmonitis) J22 Excessive cerumen in right ear canal H61.21
[2024-11-29 10:34] VITALS: BP 122/78; PULSE 92; TEMP 36.8; O2SAT 97; BMI 27.4
--- OUTSIDE RECORDS SUMMARY | 2024-11-29 12:12 | XMS_ITS | Clinical Summary ---
Author Organization [facility] Address [address] [place] [address] Care Team Providers Care Blowing Weasand Name Role Phone Eli Mclean MD Primary Care Provider [phone] Allergies Active Allergy Reactions Criticality Noted Date [...] age to complete this topic Care Teams Blowing Weasand Relationship Specialty Start Date End Date Eli Mclean MD [address] [place] [id number] PCP - General Internal Medicine 07/14/19
--- OUTSIDE RECORDS SUMMARY | 2024-11-29 12:12 | XMS_ITS | Patient Health Record ---
Author Organization [facility] Address [address] [place] [address] Care Team Providers Care Coconut Boiler Name Role Phone Vinay BLANCO, Eli Arriola Primary Care Provider Un available Nikos Zhou Unavailable [phone] Allergies Allergen (clinical drug ingredient) Drug/Non Drug [...] Status Risk Notes Problem Acquired hallux valgus (12888744) Hallux valgus (acquired), left foot (M20.12) Active confirmed Problem Localized, primary osteoarthritis of the ankle and/or foot (350783126) Primary osteoarthrit is, right ankle and foot (M19.071) Active confirmed Problem Localized, primary osteoarthritis of the ankle and/or foot (935986956) Primary osteoarthrit is, left ankle and foot (M19.072) Active confirmed Problem Acquired hallux valgus (92596230) Hallux valgus (acquired), right foot (M20.11) Active confirmed Problem Arriola's neuroma of left foot (796138876167755) 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 Plan Of Treatment Pending Test Test Name Order Date X ray : Foot, left 3V 05/23/2018 X ray : Foot, right 3V 05/23/2018 Insurance Providers Payer Name Payer Address Payer Phone Subscriber Number Group Number Insured Name Patient Relationship to Insured Coverage Start Date Coverage End Date [employer] Medicare [id number] [address] [address] [place] [address] [id number] Juliana Yo Self - patient is the insured Medical (General) History Medical History History ICD Code Arthritis asthma Knee Pain Cataracts Macular degeneration Osteoporosis Measles Mumps Surgical History Surgery Date(Month/Year) right and left knee hemorrhoid carpal tunnel
--- OUTSIDE RECORDS SUMMARY | 2024-11-29 12:12 | XMS_ITS | Clinical Summary ---
Author Organization [facility] [address] [facility] Address [address] [place] [address] Phone Care Team Providers Care Full Stack Net Developer Name Role Phone Eli Mclean MD Primary [...] Maintenance Insurance [employer] MEDICARE Care Teams Full Stack Net Developer Relationship Specialty Start Date End Date Eli Mclean MD [address] [place] [address] PCP - General Internal Medicine 08/25/13
== END 2024-11-29 11:27 | disposition home or self-care (01) ==
PROVIDERS: PCP Nurse Practitioner Family; Visit Provider Physician Assistant
DX: J22 Unspecified acute lower respiratory infection (principal); H61.21 Impacted cerumen, right ear

== ENCOUNTER 2025-01-10 08:19 | Outpatient (AMB) | payer MEDICARE, SELFPAY ==
[2025-01-10 08:30] VITALS: BMI 27.4
--- NOTE | 2025-01-10 08:30 | MHC.OFFVIS ---
Vital Signs 01/10/25 08:30 Height 5 ft 6 in Weight 170 lb BMI 27.4 Intake Visit Reasons: OV-Dislocation of rt 5th digit DOI: 10/08/24 Intake Note: Juliana is a 69 year old right hand dominant female who presents today for an follow up status post Right Small Finger Dislocation, DOI: 10/08/24. She sustained a mechanical fall when her sandal got stuck on the floor of a residential while she was visiting her father. At her last visit with Dr Valiente she was advise to start with O.T to have a custom thermoplastic finger splint made which holds her PIP joint in extension and allows for DIP joint ROM. Patient is aware she also needs to work on her ROM while at home. Today patient states she tried using her splint but it continue to come undone and she eventually discontinue. States she also tried O.T but did not find it helpful. Allergies prednisone (PREDNISONE) Allergy (Severe, Verified 01/10/25 08:57) FLUSHING/DIFFICULTY SWALLOWING, anaphalactic reaction codeine (CODEINE) Allergy (Intermediate, Verified 01/10/25 08:57) Nausea and Vomiting HPI HPI OV-Dislocation of rt 5th digit DOI: 10/08/24: Details: Juliana is a 69 year old right hand dominant woman who returns for her right small finger dislocation & Boutonniere deformity, S/P fall, DOI: 10/08/24. She says there has been no change and she continues to have the deformity in her small finger, along with stiffness and somewhat limited ROM. She says her finger splint kept coming undone and she eventually discontinued the splint at home. She says she tried OT but did not find it helpful, she only attended 2 sessions of OT. She also unfortunately missed her follow-up appointment with me at 3 weeks and is now following up about 7 later. She denies any numbness or tingling. She works in real estate. [facility] Medical History COPD (chronic obstructive pulmonary disease) Osteopenia Asthma Surgical History S/P shoulder surgery History of hysteroscopy History of arthroscopy of both knees H/O colonoscopy Family History Father No problems noted. Mother Leukemia Breast cancer Social History Household Members: Spouse Housing: Condominium Alcohol intake: current Alcohol intake frequency: a few times a week Patient Tobacco Use Status: Former Tobacco user Years Smoked: 40 years e-Cigarette/Vaping Use: Never Used Second Hand Smoke Exposure: No service: No Current occupational status: employed Current occupation: [employer] real [employer] Current occupational exposures/hazards: No Cognitive needs: No Hearing needs: No Vision needs: No Review of Systems Const All systems reviewed & are unremarkable except as noted in HPI and below Physical Exam Vital Signs: BMI result Body Mass Index 27.4 Const General: no acute distress and alert Orientation/consciousness: patient oriented x3 Neuro General: patient oriented x3 Extrem Other: Evaluation of Right Upper Extremity: The patient is alert, oriented, and in no acute distress Neuro: Sensation intact to the tips of digits Vascular: Cap refill brisk ROM: She can make a fist and extend all her digits Good FDP & FDS tendon function of the small finger Her boutonniere deformity has gotten quite a bit worse. She now has an ~70 degree boutonniere deformity with PIP flexion and DIP hyper extension. She can not actively flex the D IP beyond about 5 degrees of hyperextension. We worked on ROM exercises in clinic for 15+ minutes. It is going to take a lot of work on the patient's part to improve this 70 degree boutonniere deformity. Skin: No lacerations or abrasions. Small finger is still somewhat swollen and tender about the PIP joint Resolved ecchymosis Psych Appearance: grossly normal Affect: normal affect Attitude: cooperative Office Procedures AMB Fracture Care Details: No fracture, manual therapy greater than 15 minutes [id number] Fracture Billing Code: Fracture Billing Code Assessment & Plan Assessment & Plan (1) Boutonniere deformity of finger of right hand: Code(s): M20.021 - Boutonniere deformity of right finger(s) Category: Medical Plan Assessment & Plan: 1. Right small finger traumatic Boutonniere deformity, S/P fall ~70 degrees 2. Right small finger PIP joint volar dislocation, S/P reduction DOI: 8/24/25 Reduced in ED: 10/08/24 I educated her about this condition At her last visit the central slip appeared to be intact. The lateral bands have migrating volarly , and she has a relatively fixed boutonniere deformity at this point I emphasized the importance of working on stretching the PIP joint out of its flexion deformity just about every hour while she is awake to try and make some progress. Splinting we will also be helpful, particularly as she starts making some improvement. She also was shown to actively flex at the D IP joint while holding the PIP extended. I recommend splinting, OT, and activity modification, and she is in agreement. I explained the importance of wearing her splint as instructed and of performing daily ROM exercises while in her splint if she ever wants this to improve I ordered OT hand therapy to have a custom thermoplastic finger splint made which holds her PIP joint in extension and allows for DIP joint ROM. She should wear this daily for at least 12 hour periods. She says she was not happy with our OT department and would like to go to a different clinic if possible. I explained that she needs to be seen by an OT hand therapist, but the location does not matter. She will work on active DIP joint ROM exercises with OT hand therapy She will work on ROM exercises while in her splint She will follow up in 6 weeks to see how she is doing, no X-rays unless she has a new injury Scribed for Katty Valiente MD by Edi Kirby, nuclear medicine medical director, on 01/10/25 at 9:10 AM, EST. Coding Level of Care Code Est Pt Level 4 (36437) Diagnoses Boutonniere deformity of finger of right hand M20.021 CPT Codes Fracture Care - Fracture Billing Code: Fracture Billing Code ([id number])
--- OUTSIDE RECORDS SUMMARY | 2025-01-10 08:39 | XMS_ITS | Clinical Summary ---
Author Organization [facility] [address] [facility] Address [address] [place] [address] Phone Care Team Providers Care Senior Systems Developer Name Role Phone Eli Mclean MD [...] Maintenance Insurance [employer] MEDICARE Care Teams Senior Systems Developer Relationship Specialty Start Date End Date Eli Mclean MD [address] [place] [address] PCP - General Internal Medicine 08/25/13
--- OUTSIDE RECORDS SUMMARY | 2025-01-10 08:39 | XMS_ITS | Clinical Summary ---
Author Organization [facility] Address [address] [place] [address] Care Team Providers Care Pediatrician Managing Partner Name Role Phone Eli Mclean MD Primary Care Provider [phone] Allergies Active Allergy Reactions Criticality Noted Date [...] age to complete this topic Care Teams Pediatrician Managing Partner Relationship Specialty Start Date End Date Eli Mclean MD [address] [place] [id number] PCP - General Internal Medicine 07/14/19
--- OUTSIDE RECORDS SUMMARY | 2025-01-10 08:39 | XMS_ITS | Patient Health Record ---
Author [facility] Address [address] [place] [address] Care Team Providers Care Social Insurance Specialist Name Role Phone Vinay BLANCO, Eli Arriola Primary Care Provider Un available Nikos Zhou Unavailable [phone] Allergies Allergen (clinical drug ingredient) Drug/Non Drug [...] Status Risk Notes Problem Acquired hallux valgus (29342960) Hallux valgus (acquired), left foot (M20.12) Active confirmed Problem Localized, primary osteoarthritis of the ankle and/or foot (283586363) Primary osteoarthrit is, right ankle and foot (M19.071) Active confirmed Problem Localized, primary osteoarthritis of the ankle and/or foot (088813161) Primary osteoarthrit is, left ankle and foot (M19.072) Active confirmed Problem Acquired hallux valgus (81959755) Hallux valgus (acquired), right foot (M20.11) Active confirmed Problem Arriola's neuroma of left foot (326883424583366) 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 Plan Of Treatment Pending Test Test Name Order Date X ray : Foot, left 3V 05/23/2018 X ray : Foot, right 3V 05/23/2018 Insurance Providers Payer Name Payer Address Payer Phone Subscriber Number Group Number Insured Name Patient Relationship to Insured Coverage Start Date Coverage End Date [employer] Medicare [id number] [address] [address] [place] [address] [id number] Juliana Yo Self - patient is the insured Medical (General) History Medical History History ICD Code Arthritis asthma Knee Pain Cataracts Macular degeneration Osteoporosis Measles Mumps Surgical History Surgery Date(Month/Year) right and left knee hemorrhoid carpal tunnel
== END 2025-01-10 09:32 | disposition home or self-care (01) ==
LOC: HO.HOS 08:20
PROVIDERS: PCP Nurse Practitioner Family; Visit Provider Orthopaedic Surgery
DX: M20.021 Boutonniere deformity of right finger(s) (principal)
CPT/HCPCS: 99213

== ENCOUNTER → 2025-01-10 08:19 | Outpatient (BNVA) | payer MEDICARE, SELFPAY | PROVIDERS: PCP Nurse Practitioner Family; Visit Provider Orthopaedic Surgery | DX: M20.021 Boutonniere deformity of right finger(s) (principal) | CPT/HCPCS: 97140; 99212 ==

== ENCOUNTER 2025-02-01 08:15 | Outpatient (REF) | payer MEDICARE, SELFPAY ==
--- OUTSIDE RECORDS SUMMARY | 2025-02-01 08:29 | XMS_ITS | Clinical Summary ---
Author Organization [facility] Prior to 07/15/24 Address [address] [place] [address] Care Team Providers Care Spin Table Operator Name Role Phone Eli Mclean MD Primary Care Provider [phone] Allergies Active Allergy Reactions Criticality Noted Date [...] age to complete this topic Care Teams Spin Table Operator Relationship Specialty Start Date End Date Eli Mclean MD [address] [place] [address] PCP - General Internal Medicine 07/14/19
--- OUTSIDE RECORDS SUMMARY | 2025-02-01 08:29 | XMS_ITS | Clinical Summary ---
Author Organization [facility] [address] [facility] Address [address] [place] [address] Phone Care Team Providers Care Retail Shift Supervisor Name Role Phone Eli Mclean MD Primary Care Provider [phone] Allergies Active Allergy Reactions Criticality Noted Date [...] on file Sexual Orientation Not on file Last Filed Vital Signs [...] Maintenance Insurance [employer] MEDICARE Care Teams Retail Shift Supervisor Relationship Specialty Start Date End Date Eli Mclean MD [address] [place] [address] PCP - General Internal Medicine 08/25/13
--- OUTSIDE RECORDS SUMMARY | 2025-02-01 08:29 | XMS_ITS | Patient Health Record ---
Author [facility] Address [address] [place] [address] Care Team Providers Care Analytical Technician Name Role Phone Vinay BLANCO, Eli Arriola Primary Care Provider Un available Nikos Zhou Unavailable [phone] Allergies Allergen (clinical drug ingredient) Drug/Non Drug [...] Status Risk Notes Problem Acquired hallux valgus (21197091) Hallux valgus (acquired), left foot (M20.12) Active confirmed Problem Localized, primary osteoarthritis of the ankle and/or foot (364253069) Primary osteoarthrit is, right ankle and foot (M19.071) Active confirmed Problem Localized, primary osteoarthritis of the ankle and/or foot (726187821) Primary osteoarthrit is, left ankle and foot (M19.072) Active confirmed Problem Acquired hallux valgus (35219731) Hallux valgus (acquired), right foot (M20.11) Active confirmed Problem Arriola's neuroma of left foot (516894779636890) 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 Plan Of Treatment Pending Test Test Name Order Date X ray : Foot, left 3V 05/23/2018 X ray : Foot, right 3V 05/23/2018 Insurance Providers Payer Name Payer Address Payer Phone Subscriber Number Group Number Insured Name Patient Relationship to Insured Coverage Start Date Coverage End Date [employer] Medicare [id number] [address] [address] [place] [address] [id number] Juliana Yo Self - patient is the insured Medical (General) History Medical History History ICD Code Arthritis asthma Knee Pain Cataracts Macular degeneration Osteoporosis Measles Mumps Surgical History Surgery Date(Month/Year) right and left knee hemorrhoid carpal tunnel
== END 2025-02-01 08:16 | disposition home or self-care (01) ==
LOC: HO.MAMMO 08:15
PROVIDERS: PCP Nurse Practitioner Family; Visit Provider Nurse Practitioner Family
DX: Z12.31 Encounter for screening mammogram for malignant neoplasm of breast (principal)
CPT/HCPCS: 77063; 77067

== ENCOUNTER → 2025-02-01 08:30 | Outpatient (BNV) | payer MEDICARE, SELFPAY | PROVIDERS: PCP Nurse Practitioner Family; Visit Provider Radiology Body Imaging | DX: Z12.31 Encounter for screening mammogram for malignant neoplasm of breast (principal) | CPT/HCPCS: 77063; 77067 ==